=== PATIENT | female | born 1960 | race Caucasian/White ===

== ENCOUNTER 2016-06-24 15:30 | Inpatient (IN) | payer BC, OTHER ==
[~2016-06-24] VITALS: Ht 160 cm; Wt 48.0 kg
[2016-06-24 15:32] VITALS: BP 87/50; PULSE 120; RESP 20; TEMP 97.6; O2SAT 96
--- NOTE | 2016-06-24 15:39 | PD ---
Physical Exam Date Seen by Provider: June 24, 2016 Time Seen by Provider: 15:35 Narrative 56 YOWF C/O CONSTIPATION. LAST BM 1.[address] WILKINS. H/O BREAST CA WITH METS. NO CHEMO AND RADIATION. NEEDS CT TO R/O OBSTRUCTION. NO F/C. POS NAUSEA AND SL VOMITING. NO BILE. PAIN 9/10 WITH ABD CRAMPING. VS NOTED wating for bed asignment Data Data Last Documented VS Vital Signs Date Time Temp Pulse Resp B/P Pulse Ox O2 Delivery O2 Flow Rate FiO2 06/24/16 15:32 97.6 120 20 87/50 96 Room Air [facility] Medical Record Reviewed: No Supervised Visit with LIVAN: Minh Hale June 24, 2016 15:39
[2016-06-24] MEDS ORDERED: SODIUM CHLOR 0.9% 1000 ML INJ 1,000 ML IV SCH ×2 (15:45→18:07)
[2016-06-24] MEDS ORDERED: MORPHINE SULFATE 4 MG/ML INJ IV PUSH ONE (15:45)
[2016-06-24] MEDS ORDERED: ONDANSETRON HCL 4 MG/2 ML VIAL IVP ONE (15:45)
[2016-06-24] MEDS ORDERED: VITA100064 PO (16:21)
[2016-06-24] MEDS ORDERED: DEXA4TAB PO (16:21)
[2016-06-24] MEDS ORDERED: ASPI81CH CHEW (16:21)
[2016-06-24 17:04] VITALS: O2SAT 97
--- NOTE | 2016-06-24 17:23 | PD ---
HPI Chief Complaint: GI Complaint Time Seen by Provider: 17:19 Travel History International Travel<30 days: No Contact w/Intl Traveler<30days: No Traveled to known affect area: No History of Present Illness HPI 56-year-old female that presents to the ED for evaluation of constipation. Patient reports that for the past 10 days she has not had a bowel movement. She 's been trying multiple [id number] remedies with no relief. She 7 use enemas with minimal relief. Patient denies any nausea but has vomited a couple times. She has a history of breast cancer to has metastasized to the colon, abdomen as well as the lungs. Patient has not had any radiation. Patient apparently was supposed to have chemotherapy yesterday which she was found to be hypotensive so they gave her fluids instead. She did not get any of her chemotherapy radiation yesterday. Patient came here today because she contacted her doctor who recommended that she comes here to make sure have a blockage. Per patient she had a colonoscopy done in [place] by Dr. Collins that showed the colon masses. She states that she is usually regular although since having the diagnosis of metastasis she's been a little more regular but she is usually able to take care of them by herself. She states that whenever she has the urge to go she has severe cramping pain in the pain is progressively gotten worse. She did vomit twice today. No blood. Denies any urinary issues. No allergies to medication. PFSH Past Medical History Chemotherapy: Yes Coronary Artery Disease: Yes (bilateral breast) Social History Alcohol Use: No Tobacco Use: No Substance Use: No Allergies-Medications (Allergen,Severity, Reaction): Coded Allergies: No Known Allergies (Unverified , 06/24/16) Reported Meds & Prescriptions Reported Meds & Active Scripts Active Reported Aspirin 81 Mg Chew 81 Mg CHEW DAILY Dexamethasone 4 Mg Tab 4 Mg PO DAILY Vitamin D (Cholecalciferol) 1,000 Unit Tab 1,000 Units PO DAILY Review of Systems Except as stated in HPI: all other systems reviewed are Neg Physical Exam Narrative GENERAL: SKIN: Warm and dry. HEAD: Atraumatic. Normocephalic. EYES: Pupils equal and round 4 mm reactive to light and accommodation. No scleral icterus. No injection or drainage. ENT: No nasal bleeding or discharge. Mucous membranes pink and moist. Tongue is midline. No uvula deviation. NECK: Trachea midline. No JVD. CARDIOVASCULAR: Regular rate and rhythm. No murmurs, S3, S4. RESPIRATORY: No accessory muscle use. Clear to auscultation. Breath sounds equal bilaterally. GASTROINTESTINAL: Abdomen soft, tender to touch especially in the lower abdomen. , nondistended. Hepatic and splenic margins not palpable. MUSCULOSKELETAL: Extremities without clubbing, cyanosis, or edema. No obvious deformities. Full range of motion of the upper and lower extremities bilaterally. 2+ pulses bilaterally. NEUROLOGICAL: Awake and alert. No obvious cranial nerve deficits. Motor grossly within normal limits. Five out of 5 muscle strength in the arms and legs. Normal speech. PSYCHIATRIC: Appropriate mood and affect; insight and judgment normal. Data Data Last Documented VS Vital Signs Date Time Temp Pulse Resp B/P Pulse Ox O2 Delivery O2 Flow Rate FiO2 06/24/16 18:18 95 16 103/59 99 Room Air 06/24/16 15:32 97.6 Orders Complete Blood Count With Diff (06/24/16 15:45) Comprehensive Metabolic Panel (06/24/16 15:45) Lipase (06/24/16 15:45) Lactic Acid (06/24/16 15:45) Prothrombin Time / Inr (Pt) (06/24/16 15:45) Act Partial Throm Time (Ptt) (06/24/16 15:45) Urinalysis - C+S If Indicated (06/24/16 15:45) Ct Abd/Pel W Iv Contrast(Rout) (06/24/16 15:45) Iv Access Insert/Monitor (06/24/16 15:45) Ecg Monitoring (06/24/16 15:45) Oximetry (06/24/16 15:45) Morphine Inj (Morphine Inj) (06/24/16 15:45) Ondansetron Inj (Zofran Inj) (06/24/16 15:45) Sodium Chlor 0.9% 1000 Ml Inj (Ns 1000 M (06/24/16 15:45) Sodium Chlor 0.9% 1000 Ml Inj (Ns 1000 M (06/24/16 18:07) Insert Ng Tube (06/24/16 20:20) Admit Order (Ed Use Only) (06/24/16 20:46) Labs Laboratory Tests Test 06/24/16 06/24/16 17:00 17:25 White Blood Count 3.1 TH/MM3 Red Blood Count 3.93 MIL/MM3 Hemoglobin 11.3 GM/DL Hematocrit 33.5 % Mean Corpuscular Volume 85.3 FL Mean Corpuscular Hemoglobin 28.7 PG Mean Corpuscular Hemoglobin 33.7 % Concent Red Cell Distribution Width 21.9 % Platelet Count 253 TH/MM3 Mean Platelet Volume 7.2 FL Neutrophils (%) (Auto) 72.2 % Lymphocytes (%) (Auto) 15.5 % Monocytes (%) (Auto) 11.1 % Eosinophils (%) (Auto) 0.7 % Basophils (%) (Auto) 0.5 % Neutrophils # (Auto) 2.2 TH/MM3 Lymphocytes # (Auto) 0.5 TH/MM3 Monocytes # (Auto) 0.3 TH/MM3 Eosinophils # (Auto) 0.0 TH/MM3 Basophils # (Auto) 0.0 TH/MM3 CBC Comment AUTO DIFF Differential Total Cells 100 Counted Neutrophils % (Manual) 43 % Band Neutrophils % 32 % Lymphocytes % 14 % Monocytes % 6 % Eosinophils % 2 % Basophils % 1 % Neutrophils # (Manual) 2.4 TH/MM3 Metamyelocytes 2 % Differential Comment FINAL DIFF MANUAL Platelet Estimate NORMAL Platelet Morphology Comment NORMAL Red Cell Morphology Comment NORMAL Prothrombin Time 11.3 SEC Prothromb Time International 1.0 RATIO Ratio Activated Partial 33.5 SEC Thromboplast Time Sodium Level 132 MEQ/L Potassium Level 3.6 MEQ/L Chloride Level 93 MEQ/L Carbon Dioxide Level 29.2 MEQ/L Anion Gap 10 MEQ/L Blood Urea Nitrogen 12 MG/DL Creatinine 0.33 MG/DL Estimat Glomerular Filtration 206 ML/MIN Rate Random Glucose 75 MG/DL Lactic Acid Level 1.2 mmol/L Calcium Level 13.0 MG/DL Protein Corrected Calcium MG/DL Total Bilirubin 1.1 MG/DL Aspartate Amino Transf 33 U/L (AST/SGOT) Alanine Aminotransferase 22 U/L (ALT/SGPT) Alkaline Phosphatase 158 U/L Total Protein 6.2 GM/DL Albumin 2.7 GM/DL Lipase 100 U/L Urine Color YELLOW Urine Turbidity HAZY Urine pH 5.5 Urine Specific [place] 1.015 Urine Protein TRACE mg/dL Urine Glucose (UA) NEG mg/dL Urine Ketones 40 mg/dL Urine Occult Blood NEG Urine Nitrite NEG Urine Bilirubin NEG Urine Urobilinogen LESS THAN 2.0 MG/DL Urine Leukocyte Esterase NEG Urine WBC 1 /hpf Urine Squamous Epithelial <1 /hpf Cells Urine Hyaline Casts 9 /lpf Urine Granular Casts 3 /lpf Urine Mucus FEW /lpf Microscopic Urinalysis Comment CULT NOT INDICATED MDM Medical Decision Making Medical Screen Exam Complete: Yes Emergency Medical Condition: Yes Medical Record Reviewed: Yes Interpretation(s) CBC & BMP Diagram 06/24/16 17:00 LFTS and lipase WNL Coags WNL UA negative Last Impressions Abdomen/Pelvis CT 06/24/16 1545 Signed Impressions: Service Date/Time: Friday, June 24, 2016 19:30 - CONCLUSION: Widespread metastatic disease. Likely distal bowel obstruction and right ureteral obstruction. See above for complete details Alberto Mckinley MD Differential Diagnosis Bowel obstruction versus constipation versus diverticulitis versus acute abdomen versus metastatic disease versus dehydration versus hypotension Narrative Course 56-year-old female that presents to the ED for evaluation of possible bowel obstruction. Patient was properly examined and was found to have signs and symptoms concerning for possible bowel obstruction. Patient does have a history of metastatic cancer with metastases to colon itself. I do recommend imaging and labs. Patient is in agreement with this plan. Patient was given IV fluids as well as pain medication here. Labs and imaging showed distal colon obstruction as well as ureter on the right side obstruction. Patient has severe metastatic disease. Case was discussed in my attending who recommends is basically colorectal surgeon as well as urologist. Case was discussed with Dr. Ovalle who agrees to consult on the patient for possible surgical management as well as my attending spoke with Dr Hawkins who will also consult on the patient. Findings and requirement for admission were discussed with the family and patient were in agreement with admission. CHRIS was paged. Dr Meehan agrees to admission. Diagnosis Primary Impression: Colonic obstruction Additional Impressions: Urethral obstruction Metastatic disease Admitting Information Admitting Physician Requests: Admit Caden Jones June 24, 2016 17:23
[2016-06-24 17:40] LABS: APTT (PATIENT) 33.5 SEC (24.3-30.1); PROTHROMBIN TIME - PATIENT 11.3 SEC (9.8-11.6)
[2016-06-24 17:41] LABS: AUTOMATED NEUTROPHIL # 2.2 TH/MM3 (1.8-7.7); BASOPHIL % 0.5 % (0.0-2.0); EOSINOPHIL % 0.7 % (0.0-4.0); HEMATOCRIT 33.5 % (35.0-46.0); LYMPH % 15.5 % (9.0-44.0); LYMPHOCYTE # 0.5 TH/MM3 (1.0-4.8); MEAN CELL VOLUME 85.3 FL (80.0-100.0); MEAN CORPUSCULAR HEMOGLOBIN 28.7 PG (27.0-34.0); MEAN CORPUSCULAR HGB CONC 33.7 % (32.0-36.0); MONO % 11.1 % (0.0-8.0); NEUT % 72.2 % (16.0-70.0); PLATELET COUNT 253 TH/MM3 (150-450); RED BLOOD COUNT 3.93 MIL/MM3 (4.00-5.30); RED CELL DISTRIBUTION WIDTH 21.9 % (11.6-17.2); WHITE BLOOD COUNT 3.1 TH/MM3 (4.0-11.0)
[2016-06-24 17:49] LABS: HEMO FLAGS AUTO DIFF
[2016-06-24 18:08] LABS: BLOOD, URINE NEG (NEG); COMMENT (UR) CULT NOT INDICATED; CULTURE IF INDICATED CULT NOT INDICATED; GLUCOSE,URINE NEG (NEG); GRANULAR CAST, URINE 3 /lpf; HYALINE CAST, URINE 9 /lpf (RARE); KETONE, URINE 40 mg/dL (NEG); MUCUS URINE FEW /lpf (OCC); NITRITE,URINE NEG (NEG); PH, URINE 5.5 (5.0-8.5); SQUAMOUS EPITHELIAL CELL URINE <1 /hpf (0-5); URINE COLOR YELLOW (YELLW/STRAW)
[2016-06-24 18:14] LABS: BICARBONATE 29.2 MEQ/L (21.0-32.0); POTASSIUM 3.6 MEQ/L (3.5-5.1); TOTAL BILIRUBIN ADULT 1.1 MG/DL (0.2-1.0)
[2016-06-24 18:18] VITALS: BP 103/59; PULSE 95; RESP 16; O2SAT 99
[2016-06-24 18:23] LABS: BANDS 32 % (0-6); BASOPHILS 1 % (0-2); EOSINOPHILS 2 % (0-4); METAMYELOCYTES 2 % (0-1); NEUTROPHIL # MANUAL DIFF 2.4 TH/MM3 (1.8-7.7); PLATELET ESTIMATE SMEAR NORMAL (NORMAL); PLATELET MORPHOLOGY NORMAL (NORMAL); POLYS (SEG NEUTROPHILS) 43 % (16-70); SCAN/DIFF FINAL DIFF MANUAL; WBC DIFF SAMPLE 100
[2016-06-24] MEDS ORDERED: IOHEXOL 350 MG/ML 10 ML VIAL (for RAD DIAG) IV ONE (19:30)
--- NOTE | 2016-06-24 20:05 | RADRPT ---
EXAM DATE/TIME: 06/24/2016 19:30 [facility] COMPARISON: CT SIMULATION, June 19, 2015, 10:25. CT SIMULATION, May 19, 2016, 13:56. INDICATIONS : Abdominal pain, hx breast ca with metastatic disease and chemo, no bowel movement for 1.5 weeks, naus ea and vomiting. IV CONTRAST: 95 cc Omnipaque 350 (iohexol) IV ORAL CONTRAST: No oral contrast ingested. RADIATION DOSE: 4.5 CTDIvol (mGy) MEDICAL HISTORY : Metastatic, breast. SURGICAL HISTORY : None. ENCOUNTER: Initial ACUITY: 2 weeks PAIN SCALE: 4/10 LOCATION: abdomen diffuse TECHNIQUE: Volumetric scanning of the abdomen and pelvis was performed. Using automated exposure control and ad justment of the mA and/or kV according to patient size, radiation dose was kept as low as reasonably achievable to obtain optimal diagnostic quality images. FINDINGS: LOWER LUNGS: Right pleural effusion and atelectasis in the posterior lung bases. At least one nodular density in t he anterior left lung base LIVER: Multiple low density lesions consistent with metastatic disease, largest several measuring just over 3 cm. No evidence of biliary ductal dilatation. SPLEEN: Normal size without lesion. Small nodular masses in the splenic hilum PANCREAS: Within normal limits. KIDNEYS: Mild right hydronephrosis and hydroureter. Heterogeneous mass involving the anterior apex of the righ t kidney and adjacent lobular adrenal mass/masses. It is unclear from the appearance of this is a sin gle mass process or separate mass is arising in both organs. The contralateral left kidney is benign with a couple of tiny cysts present, however there are do appear to be extrarenal masses near the low er pole both within and external to Gerota's fascia. ADRENAL GLANDS: See above VASCULAR: There is no aortic aneurysm. BOWEL/MESENTERY: Moderately dilated colon and multiple dilated small bowel loops primarily in the pelvis. There appear s to be some wall thickening or pericolic inflammation in addition to multiple nodular masses adjacen t to the descending colon with nodular masses in the left paracolic gutter. In the deep central pelvi s, there appears to be a transition point with caliber change involving the distal sigmoid without di screte mass in this region. ABDOMINAL WALL: Within normal limits. RETROPERITONEUM: Nodular masses associated with the right adrenal, the upper abdominal para-aortic region, the lower a spect of the left perinephric . Enlarged right iliac chain lymph node at the level of the inferior as pect of the SI joint. BLADDER: No wall thickening or mass. REPRODUCTIVE: Within normal limits. INGUINAL: There is no lymphadenopathy or hernia. MUSCULOSKELETAL: Within normal limits for patient age. CONCLUSION: Widespread metastatic disease. Likely distal bowel obstruction and right ureteral obstruction. See ab ove for complete details Alberto Mckinley MD on June 24, 2016 at 19:47 Board Certified Radiologist. This report was verified electronically.
[2016-06-24] MEDS: SODIUM CHLOR 0.9% 1000 ML INJ 1,000 ML IV SCH ×2 (20:53→21:37)
[2016-06-24] MEDS ORDERED: BISACODYL 10 MG SUPP RECTAL PRN (21:00)
[2016-06-24] MEDS ORDERED: SODIUM CHLORIDE 0.9% FLUSH 10 ML FLUSH IV FLUSH PRN (21:00)
[2016-06-24] MEDS ORDERED: MORPHINE SULFATE 4 MG/ML INJ IV PRN (21:00)
[2016-06-24] MEDS: SODIUM CHLORIDE 0.9% FLUSH 10 ML FLUSH IV FLUSH SCH (21:00)
[2016-06-24] MEDS ORDERED: ACETAMINOPHEN 1000 MG/100 ML VIAL IV PRN (21:00)
--- NOTE | 2016-06-24 21:02 | HHI.HP ---
[facility] Eddie [facility]if M[facility]. Admission Diagnosis colonic obstruction, urethral obstruction, metastatic disease Diagnoses: (1) Metastatic breast cancer Diagnosis: Principal (2) Urethral obstruction Diagnosis: Principal (3) Bowel obstruction Diagnosis: Principal (4) Hypercalcemia Diagnosis: Principal (5) Hypotension Diagnosis: Principal (6) Bandemia Diagnosis: Principal Travel History International Travel<30 Days: No Contact w/Intl Traveler <30 Da: No Traveled to Known Affected Are: No History of Present Illness This a 56-year-old female with a PMH of Metastatic Breast CA to Brain, Liver and Colon who presented to the ER with complaints of abdominal pain and constipation x10 days. Denies nausea, vomiting or diarrhea. States she's tried over the counter medications w/ no relief. Following w/ Dr. Mckeon as outpatient, s/p Brain Radiation w/ plans to undergo Chemo yesterday however chemo on hold for episode of hypotension. Today, w/ increasing abdominal pain and referred to ER for evaluation of possible obstruction. On arrival, BP 87/50 , HR 120, O2 sat 96% on RA, Afebrile. S/p IVF, currently BP 103/52, HR 80. WBC 3.1, bandemia 32. Ca 13.0. U/a negative. CT Abd/Pelvis w/ widespread metastatic disease, likely distal bowel obstruction and right ureteral obstruction. Dr. Ovalle w/ CRS and Dr. Hawkins w/ Urology, will evaluate in am. S/p NGT in ER. Review of Systems Except as stated in HPI: all other systems reviewed are Neg ROS: 14 point review of systems otherwise negative. Past Family Social History Past Medical History PMH: Metastatic Breast CA to Brain, Liver and Colon Past Surgical History PAST SURGICAL HISTORY: None Allergies: Coded Allergies: No Known Allergies (Unverified , 06/24/16) Family History PAST FAMILY HISTORY: Reviewed. No h/o DM or CAD Social History PAST SOCIAL HISTORY: Negative for alcohol, tobacco or drugs. Physical Exam Vital Signs Vital Signs Date Time Temp Pulse Resp B/P Pulse Ox O2 Delivery O2 Flow Rate FiO2 06/24/16 18:18 95 16 103/59 99 Room Air 06/24/16 17:04 97 Room Air 06/24/16 15:32 97.6 120 20 87/50 96 Room Air Physical Exam PE: GENERAL: Middle-aged female in no acute distress. HEENT: PERRLA, EOMI. No scleral icterus or conjunctival pallor. No lid lag or facial droop. CARDIOVASCULAR: Regular rate and rhythm. No obvious murmurs to auscultation. No chest tenderness to palpation. RESPIRATORY: No obvious rhonchi or wheezing. Clear to auscultation. Breath sounds equal bilaterally. GASTROINTESTINAL: Abdomen soft, generalized tenderness to palpation, nondistended. BS normal. MUSCULOSKELETAL: Extremities without clubbing, cyanosis, or edema. No obvious deformities. NEUROLOGICAL: Awake, alert and oriented x4. No focal neurologic deficits. Moving both upper and lower extremities spontaneously. Laboratory Laboratory Tests Test 06/24/16 06/24/16 17:00 17:25 White Blood Count 3.1 Red Blood Count 3.93 Hemoglobin 11.3 Hematocrit 33.5 Mean Corpuscular Volume 85.3 Mean Corpuscular Hemoglobin 28.7 Mean Corpuscular Hemoglobin 33.7 Concent Red Cell Distribution Width 21.9 Platelet Count 253 Mean Platelet Volume 7.2 Neutrophils (%) (Auto) 72.2 Lymphocytes (%) (Auto) 15.5 Monocytes (%) (Auto) 11.1 Eosinophils (%) (Auto) 0.7 Basophils (%) (Auto) 0.5 Neutrophils # (Auto) 2.2 Lymphocytes # (Auto) 0.5 Monocytes # (Auto) 0.3 Eosinophils # (Auto) 0.0 Basophils # (Auto) 0.0 CBC Comment AUTO DIFF Differential Total Cells 100 Counted Neutrophils % (Manual) 43 Band Neutrophils % 32 Lymphocytes % 14 Monocytes % 6 Eosinophils % 2 Basophils % 1 Neutrophils # (Manual) 2.4 Metamyelocytes 2 Differential Comment FINAL DIFF MANUAL Platelet Estimate NORMAL Platelet Morphology Comment NORMAL Red Cell Morphology Comment NORMAL Prothrombin Time 11.3 Prothromb Time International 1.0 Ratio Activated Partial 33.5 Thromboplast Time Sodium Level 132 Potassium Level 3.6 Chloride Level 93 Carbon Dioxide Level 29.2 Anion Gap 10 Blood Urea Nitrogen 12 Creatinine 0.33 Estimat Glomerular Filtration 206 Rate Random Glucose 75 Lactic Acid Level 1.2 Calcium Level 13.0 Protein Corrected Calcium Total Bilirubin 1.1 Aspartate Amino Transf 33 (AST/SGOT) Alanine Aminotransferase 22 (ALT/SGPT) Alkaline Phosphatase 158 Total Protein 6.2 Albumin 2.7 Lipase 100 Urine Color YELLOW Urine Turbidity HAZY Urine pH 5.5 Urine Specific [place] 1.015 Urine Protein TRACE Urine Glucose (UA) NEG Urine Ketones 40 Urine Occult Blood NEG Urine Nitrite NEG Urine Bilirubin NEG Urine Urobilinogen LESS THAN 2.0 Urine Leukocyte Esterase NEG Urine WBC 1 Urine Squamous Epithelial <1 Cells Urine Hyaline Casts 9 Urine Granular Casts 3 Urine Mucus FEW Microscopic Urinalysis Comment CULT NOT INDICATED Result Diagram: 06/24/16169906/24/161699 Assessment and Plan Problem List: (1) Metastatic breast cancer ICD Code: C50.919 Status: Acute (2) Urethral obstruction ICD Code: N36.8 Status: Acute (3) Bowel obstruction ICD Code: K56.60 Status: Acute (4) Hypercalcemia ICD Code: E83.52 Status: Acute (5) Hypotension ICD Code: I95.9 Status: Acute (6) Bandemia ICD Code: D72.825 Status: Acute Assessment and Plan A/P: 1. Metastatic Breast CA: to [employer], Liver and Colon, s/p Radiation, plan to initiate Chemo however has been hypotensive requiring IVF, Chemo on hold. Follows w/ Dr. Mckeon as outpatient, consult placed by ER physician. Currently on Decadron taper for [employer] mets, will switch to IV Decadron in light of bowel obstruction. 2. Bowel Obstruction: Constipation, no BM x10 days. CT Abd/Pelvis w/ widespread metastatic disease, likely distal bowel obstruction and right ureteral obstruction, images reviewed by me. S/p NGT placement in ER. Keep NPO , IVF, transition to IV medications. Dr. Ovalle consulted by ER physician, will evaluate in am. 3. Ureteral Obstruction: As above, CT w/ right ureteral obstruction, images reviewed. Dr. Hawkins consulted by ER physician. Monitor I/O. 4. Hypercalcemia: Ca 13.0, likely secondary to significant dehydration. IVF, repeat labs in am. 5. Hypotension: Recurrent. BP 87/50, HR 120 on arrival, s/p IVF w/ repeat BP currently 103/52, HR 80. Monitor closely. IVF for hydration. 6. Bandemia: WBC 3.1, Bands 32. U/a negative. Check Blood Cultures, start empiric treatment w/ Cipro/Flagyl for intra-abdominal infection. Repeat labs in am. 7. DVT Prophylaxis: SCD/Teds. 8. Social work for d/c planning as needed. 9. Case discussed w/ ER physician at length. Physician Certification 2 Midnight Certification Type: Admission for Inpatient Services Order for Inpatient Services The services are ordered in accordance with Medicare regulations or non- Medicare payer requirements, as applicable. In the case of services not specified as inpatient-only, they are appropriately provided as inpatient services in accordance with the 2-midnight benchmark. Estimated LOS (days): 2 days is the estimated time the patient will need to remain in the hospital, assuming treatment plan goals are met and no additional complications. Post-Hospital Plan: Not yet determined Charlene Meehan MD June 24, 2016 21:02
[2016-06-24 21:52] VITALS: BP 103/52; PULSE 80; RESP 16; TEMP 98.3; O2SAT 96
[2016-06-25] VITALS (7 sets, daily range): BP systolic 85–105; BP diastolic 46–56; PULSE 105–115; RESP 15–18; TEMP 96–98.7; O2SAT 94–98
[2016-06-25] MEDS: metroNIDAZOLE 500 MG INJ 100 ML IV SCH ×3 (00:09→15:45)
[2016-06-25] MEDS: CIPROFLOXACIN 400 MG PREMIX 200 ML IV SCH ×4 (00:09→23:12)
[2016-06-25] MEDS: MORPHINE SULFATE 4 MG/ML INJ IV PRN (00:11)
--- NOTE | 2016-06-25 00:24 | RADRPT ---
EXAM DATE/TIME: 06/24/2016 23:44 [facility] COMPARISON: CT ABDOMEN & PELVIS W CONTRAST, June 24, 2016, 19:30. INDICATIONS : NG tube placement. MEDICAL HISTORY : Metastatic, breast. SURGICAL HISTORY : None. ENCOUNTER: Initial ACUITY: 1 day PAIN SCORE: 0/10 LOCATION: upper quadrant abdomen. FINDINGS: There appears to be an NG tube in the mid to distal esophagus. The tip does not appear to be in the s tomach. Recommend advancing the NG tube and other 10 cm. There is hydronephrosis of the right upper c ollecting system. There appears to be obstruction of the mid right ureter. No hydronephrosis on the l eft side. There is some nonspecific air filled loops of small marginal bowel. Lung bases are grossly clear. There surgical clips in the abdomen. CONCLUSION: 1. NG tube appears to be in the mid to distal esophagus. Recommend advancing the NG tube approximatel y 10 cm. 2. Hydronephrosis of the right collecting system with what appears to be obstruction at the mid right ureter. 3. Nonspecific air-filled loops of small and large bowel throughout the abdomen. Kalia Rasmussen MD on June 25, 2016 at 0:16 Board Certified Radiologist. This report was verified electronically.
[2016-06-25] MEDS ORDERED: SODIUM CHLORID 0.9% 500 ML INJ 500 ML IV ONE (05:00)
[2016-06-25 08:34] LABS: ALKALINE PHOSPHATASE 155 U/L (45-117); ALT (GPT) 32 U/L (10-53); ANION GAP 7 MEQ/L (5-15); AST (GOT) 64 U/L (15-37); BICARBONATE 28.2 MEQ/L (21.0-32.0); BLOOD UREA NITROGEN 3 MG/DL (7-18); CHLORIDE 105 MEQ/L (98-107); GLOMERULAR FILTRATION RATE 81 ML/MIN (>89); POTASSIUM 3.5 MEQ/L (3.5-5.1); SODIUM (NA) 140 MEQ/L (136-145)
[2016-06-25] MEDS: DEXAMETHASONE SOD PHOS 4 MG/ML VIAL IV PUSH SCH (09:34)
[2016-06-25] MEDS: SODIUM CHLORIDE 0.9% FLUSH 10 ML FLUSH IV FLUSH SCH ×2 (09:36→19:29)
[2016-06-25 10:40] LABS: AUTOMATED NEUTROPHIL # 4.7 TH/MM3 (1.8-7.7); BASOPHIL % 0.3 % (0.0-2.0); EOSINOPHIL % 0.3 % (0.0-4.0); HEMATOCRIT 27.9 % (35.0-46.0); LYMPH % 6.7 % (9.0-44.0); LYMPHOCYTE # 0.4 TH/MM3 (1.0-4.8); MEAN CELL VOLUME 85.7 FL (80.0-100.0); MEAN CORPUSCULAR HEMOGLOBIN 28.7 PG (27.0-34.0); MEAN CORPUSCULAR HGB CONC 33.5 % (32.0-36.0); MONO % 4.8 % (0.0-8.0); NEUT % 87.9 % (16.0-70.0); PLATELET COUNT 147 TH/MM3 (150-450); RED BLOOD COUNT 3.25 MIL/MM3 (4.00-5.30); RED CELL DISTRIBUTION WIDTH 21.9 % (11.6-17.2); WHITE BLOOD COUNT 5.3 TH/MM3 (4.0-11.0)
[2016-06-25 10:42] LABS: HEMO FLAGS AUTO DIFF
[2016-06-25 11:17] LABS: BANDS 36 % (0-6); METAMYELOCYTES 11 % (0-1); MYELOCYTES 3 % (0-0); POLYS (SEG NEUTROPHILS) 26 % (16-70); WBC DIFF SAMPLE 100
[2016-06-25 11:21] LABS: SCAN/DIFF FINAL DIFF MANUAL
--- NOTE | 2016-06-25 11:51 | HHI.PR ---
Subjective Remarks Pt currently having 6/10 pain, no nausea or vomiting but tells me that her abdomen is "gargling". She spoke w Dr. Ovalle and she is going to the OR today if there is availability today Objective Vitals Vital Signs Date Time Temp Pulse Resp B/P Pulse Ox O2 Delivery O2 Flow Rate FiO2 06/25/16 08:00 97.1 107 15 89/46 96 06/25/16 05:40 90/50 06/25/16 04:45 97.0 105 16 85/46 96 06/25/16 00:40 98.7 115 16 90/55 94 06/24/16 21:52 98.3 80 16 103/52 96 Room Air 06/24/16 18:18 95 16 103/59 99 Room Air 06/24/16 17:04 97 Room Air 06/24/16 15:32 97.6 120 20 87/50 96 Room Air I/O 06/24/16 06/24/16 06/24/16 06/25/16 06/25/16 06/25/16 07:00 15:00 23:00 07:00 15:00 23:00 Intake Total 1640 ml Output Total 200 ml Balance 1440 ml Intake Oral 200 ml IV Total 1440 ml Output Gastric Drainage Total 200 ml # Voids 1 # Bowel Movements 0 Result Diagram: 06/25/16 1000 06/25/16 0700 Imaging Last Impressions Abdomen/Pelvis CT 06/24/16 1545 Signed Impressions: Service Date/Time: Friday, June 24, 2016 19:30 - CONCLUSION: Widespread metastatic disease. Likely distal bowel obstruction and right ureteral obstruction. See above for complete details Alberto Mckinley MD Abdomen X-Ray 06/24/16 0000 Signed Impressions: Service Date/Time: Friday, June 24, 2016 23:44 - CONCLUSION: 1. NG tube appears to be in the mid to distal esophagus. Recommend advancing the NG tube approximately 10 cm. 2. Hydronephrosis of the right collecting system with what appears to be obstruction at the mid right ureter. 3. Nonspecific air-filled loops of small and large bowel throughout the abdomen. Kalia Rasmussen MD Objective Remarks GENERAL: Middle-aged female in no acute distress. CARDIOVASCULAR: Regular rate and rhythm. No obvious murmurs to auscultation. RESPIRATORY: No obvious rhonchi or wheezing. Clear to auscultation. Breath sounds equal bilaterally. NG tube in place GASTROINTESTINAL: Abdomen soft, generalized tenderness to palpation, nondistended. hyperactive bowel sounds noted, no guarding or rebound MUSCULOSKELETAL: Extremities without edema. No obvious deformities. NEUROLOGICAL: Awake, alert and oriented x4. No focal neurologic deficits. Moving both upper and lower extremities spontaneously. A/P Problem List: (1) Metastatic breast cancer ICD Code: C50.919 Status: Acute (2) Urethral obstruction ICD Code: N36.8 Status: Acute (3) Bowel obstruction ICD Code: K56.60 Status: Acute (4) Hypercalcemia ICD Code: E83.52 Status: Acute (5) Hypotension ICD Code: I95.9 Status: Acute (6) Bandemia ICD Code: D72.825 Status: Acute Assessment and Plan 1. 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 Follows w / Dr. Mckeon as outpatient, and he has been consulted. 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 2. Bowel Obstruction: Constipation, no BM x10 days. CT Abd/Pelvis w/ widespread metastatic disease, likely distal bowel obstruction and right ureteral obstruction. S/p NGT placement in ER. continue NPO, IVF, meds transitioned to IV medications for now. Dr. Ovalle evaluated the patient and exploratory laparomy/colostomy has been scheduled for today 3. Ureteral Obstruction: As above, CT w/ right ureteral obstruction. Dr. Hawkins consulted by ER physician. Monitor I/O. 4. Hypercalcemia: Ca 13.0, likely secondary to significant dehydration. today repeat was 7.8, continue IVF, repeat labs in am. 5. Hypotension: Recurrent. BP 87/50, HR 120 on arrival, s/p IVF w/ repeat BP currently 103/52, HR 80. Received a bolus IV NS 500ml x 1. will increase NS @ 125ml/hr. Monitor closely. 6. Bandemia: WBC 3.1, Bands 32. on admission. repeat this morning WBC 5.3 w 36 bands. U/a negative. Blood Cultures pending, on Cipro/Flagyl for possible intra-abdominal infection. Repeat labs in am. 7. DVT Prophylaxis: SCD/Teds. Discharge Planning Pt going to the OR today Latricia Hall MD June 25, 2016 11:51
[2016-06-25] MEDS ORDERED: PHENYLEPH/NS 1000 MCG/10 ML SYR IV ONE (12:00)
[2016-06-25] MEDS ORDERED: LACTATED RINGER'S 1000 ML INJ 1,000 ML IV ONE (12:00)
[2016-06-25] MEDS ORDERED: NEOSTIGMINE 3 MG/3 ML SYR IV ONE (12:00)
[2016-06-25] MEDS ORDERED: PROPOFOL 200 MG/20 ML AMP IV ONE (12:00)
[2016-06-25] MEDS ORDERED: ONDANSETRON HCL 4 MG/2 ML VIAL IV PUSH ONE (12:00)
[2016-06-25] MEDS ORDERED: SUGAMMADEX SODIUM 200 MG/2 ML VIAL IV PUSH ONE ×2 (13:18)
[2016-06-25] MEDS ORDERED: DO NOT ADM ANY ANTICOAGULANT DRUGS PRN (13:28)
[2016-06-25] MEDS ORDERED: fentaNYL CITRATE 250 MCG/5 ML AMP ONE (13:41)
[2016-06-25] MEDS ORDERED: *morphine SULFATE 8 MG/ML PERIprocedure ONLY ONE ×2 (13:52→14:15)
[2016-06-25] MEDS ORDERED: MORPHINE SULFATE 30 MG/30 ML PCA ONE (14:16)
[2016-06-25] MEDS ORDERED: *HYDROmorphone PF 1 MG VIAL PERIprocedural Use ONLY ONE (14:28)
[2016-06-25] MEDS: DEXT 5%-NACL 0.9% 1000 ML INJ 1,000 ML IV SCH ×5 (14:30→23:30)
[2016-06-25] MEDS ORDERED: NALOXONE HCL 0.4 MG/ML AMP IV PRN (15:00)
--- NOTE | 2016-06-25 15:11 | HHI.PR ---
Subjective Patient symptoms today Patient not in room for evaluation Imaging studies reviewed. Mild hydronephrosis noted. Normal Cr. Unlikely any significant obstruction of the right collecting system. Based on the imaging studies, no immediate need for decompression with ureteral stents. However if Dr. Ovalle requires stent placement for any procedure please contact Urology prior. Will return at a later date to evaluate patient Objective Vital Signs Vital Signs Date Time Temp Pulse Resp B/P Pulse Ox O2 Delivery O2 Flow Rate FiO2 06/25/16 08:00 97.1 107 15 89/46 96 06/25/16 05:40 90/50 06/25/16 04:45 97.0 105 16 85/46 96 06/25/16 00:40 98.7 115 16 90/55 94 06/24/16 21:52 98.3 80 16 103/52 96 Room Air 06/24/16 18:18 95 16 103/59 99 Room Air 06/24/16 17:04 97 Room Air 06/24/16 15:32 97.6 120 20 87/50 96 Room Air Result Diagram: 06/25/16 1000 06/25/16 0700 Imaging Last 24 hours Impressions Abdomen/Pelvis CT 06/24/16 1545 Signed Impressions: Service Date/Time: Friday, June 24, 2016 19:30 - CONCLUSION: Widespread metastatic disease. Likely distal bowel obstruction and right ureteral obstruction. See above for complete details Alberto Mckinley MD Medications and IVs Current Medications Medications (Trade) Dose Ordered Sig/Nico Route Start Time Stop Time Status Last Admin (NS 1000 ml Inj) 1,000 ml @ 125 mls/hr Q8H IV 06/24/16 20:53 06/24/16 21:37 (NS Flush) 2 ml UNSCH PRN IV FLUSH 06/24/16 21:00 (NS Flush) 2 ml BID IV FLUSH 06/24/16 21:00 06/25/16 09:36 (Zofran Inj) 4 mg Q6H PRN IVP 06/24/16 21:00 (Morphine Inj) 2 mg Q3H PRN IV 06/24/16 21:00 06/24/16 21:37 (Morphine Inj) 4 mg Q3H PRN IV 06/24/16 21:00 06/25/16 00:11 Dexamethasone Sodium Phosphate 4 mg 4 mg DAILY IV PUSH 06/25/16 09:00 06/25/16 09:34 Ciprofloxacin/ Dextrose 200 ml @ 200 mls/hr Q12H IV 06/24/16 23:00 06/25/16 12:23 (Flagyl 500 Mg Inj) 100 ml @ 100 mls/hr Q8H IV 06/25/16 00:00 06/25/16 09:35 (Reglan Inj) 10 mg Q6HR IV PUSH 06/25/16 18:00 (Protonix Inj) 40 mg DAILY IV PUSH 06/26/16 09:00 (Morphine 1 Mg/ ml PORT CRANE OPERATOR) 30 mg UNSCH IV 06/25/16 15:00 PORT CRANE OPERATOR Dosage Infused (Pha) 1 Q8HR .XX 06/25/16 22:00 (Narcan Inj) 0.4 mg UNSCH PRN IV 06/25/16 15:00 Miscellaneous Information ALL NURSING DEPARTME... UNSCH PRN .XX 06/25/16 13:28 06/26/16 13:27 Javier Hawkins MD June 25, 2016 15:11
[2016-06-25] MEDS: MORPHINE SULFATE 30 MG/30 ML PCA IV SCH (15:37)
[2016-06-25] MEDS: METOCLOPRAMIDE HCL 10 MG/2 ML VIAL IV PUSH SCH (18:15)
[2016-06-25] MEDS: PCA - TOTAL MG MORPHINE DELIVERED PER SHIFT SCH (22:00)
[2016-06-26] VITALS: BP 99/54; PULSE 100; RESP 17; TEMP 96; O2SAT 98
[2016-06-26] MEDS: METOCLOPRAMIDE HCL 10 MG/2 ML VIAL IV PUSH SCH ×5 (00:07→23:32)
[2016-06-26] MEDS: metroNIDAZOLE 500 MG INJ 100 ML IV SCH ×4 (00:07→23:31)
[2016-06-26 04:00] VITALS: BP 93/50; PULSE 98; RESP 18; TEMP 96.1; O2SAT 97
[2016-06-26] MEDS: PCA - TOTAL MG MORPHINE DELIVERED PER SHIFT SCH ×3 (06:00→22:00)
[2016-06-26 08:00] VITALS: BP 89/54; PULSE 94; RESP 17; TEMP 97.3; O2SAT 95
[2016-06-26] MEDS: SODIUM CHLORIDE 0.9% FLUSH 10 ML FLUSH IV FLUSH SCH ×2 (08:20→20:15)
[2016-06-26] MEDS: DEXAMETHASONE SOD PHOS 4 MG/ML VIAL IV PUSH SCH (08:20)
[2016-06-26] MEDS: PANTOPRAZOLE SODIUM 40 MG VIAL IV PUSH SCH (08:26)
[2016-06-26] MEDS ORDERED: SODIUM CHLOR 0.9% 250 ML INJ 250 ML IV ONE (08:30)
[2016-06-26] MEDS: DEXT 5%-NACL 0.9% 1000 ML INJ 1,000 ML IV SCH ×4 (09:09→20:14)
--- NOTE | 2016-06-26 09:33 | HHI.PR ---
Subjective Remarks C/R Surg POD #1 afebrile, VSS UO good NGT dc'd Objective - Vital Signs Date Time Temp Pulse Resp B/P Pulse Ox O2 Delivery O2 Flow Rate FiO2 06/26/16 08:30 Nasal Cannula 2.00 06/26/16 08:00 97.3 94 17 89/54 95 Result Diagram: 06/26/16 0629 06/25/16 0700 Objective Remarks PE alert Abd - softer, still tympany, stoma pink A/P Assessment and Plan Imp: stable post-op Hgb decr may be from draw site?? OOB try PO slowly hold oncology consult until Dr Mckeon available Philippe Ovalle MD June 26, 2016 09:33
[2016-06-26] MEDS: CIPROFLOXACIN 400 MG PREMIX 200 ML IV SCH ×2 (10:10→21:24)
[2016-06-26 10:26] LABS: HEMATOCRIT 27.4 % (35.0-46.0); RED BLOOD COUNT 3.14 MIL/MM3 (4.00-5.30); WHITE BLOOD COUNT 5.7 TH/MM3 (4.0-11.0)
[2016-06-26 10:27] LABS: MEAN CELL VOLUME 87.2 FL (80.0-100.0); MEAN CORPUSCULAR HEMOGLOBIN 29.2 PG (27.0-34.0); MEAN CORPUSCULAR HGB CONC 33.4 % (32.0-36.0)
[2016-06-26 10:28] LABS: BICARBONATE 30.9 MEQ/L (21.0-32.0); HEMO FLAGS AUTO DIFF; PLATELET COUNT 172 TH/MM3 (150-450); RED CELL DISTRIBUTION WIDTH 21.1 % (11.6-17.2)
[2016-06-26 10:29] LABS: AUTOMATED NEUTROPHIL # 4.9 TH/MM3 (1.8-7.7); BASOPHIL % 0.1 % (0.0-2.0); EOSINOPHIL % 0.1 % (0.0-4.0); LYMPH % 5.9 % (9.0-44.0); LYMPHOCYTE # 0.3 TH/MM3 (1.0-4.8); NEUT % 86.9 % (16.0-70.0)
[2016-06-26 10:54] LABS: BANDS 50 % (0-6); METAMYELOCYTES 1 % (0-1); NEUTROPHIL # MANUAL DIFF 5.1 TH/MM3 (1.8-7.7); POLYS (SEG NEUTROPHILS) 38 % (16-70); WBC DIFF SAMPLE 100
[2016-06-26 10:55] LABS: SCAN/DIFF FINAL DIFF MANUAL
[2016-06-26 11:47] VITALS: BP 97/55; PULSE 97; RESP 16; TEMP 97.5; O2SAT 91
--- NOTE | 2016-06-26 13:43 | HHI.PR ---
Subjective Remarks Having some pain but the morphine helps. no nausea or vomiting at this time. no CP/SOB Objective Vitals Vital Signs Date Time Temp Pulse Resp B/P Pulse Ox O2 Delivery O2 Flow Rate FiO2 06/26/16 11:47 97.5 97 16 97/55 91 06/26/16 11:47 91 Room Air 06/26/16 10:30 Room Air 06/26/16 08:30 Nasal Cannula 2.00 06/26/16 08:00 97.3 94 17 89/54 95 06/26/16 06:00 17 06/26/16 04:00 96.1 98 18 93/50 97 06/26/16 00:00 96.0 100 17 99/54 98 06/25/16 22:00 18 06/25/16 20:00 96.0 108 18 100/51 96 06/25/16 19:27 96 Nasal Cannula 3.00 06/25/16 16:00 97.8 106 14 100/58 95 Nasal Cannula 3 06/25/16 16:00 96.4 106 15 96/56 98 06/25/16 15:37 15 06/25/16 15:30 106 14 95 Nasal Cannula 3 06/25/16 15:15 106 11 99/54 95 Nasal Cannula 4 06/25/16 15:00 107 11 93/53 90 Nasal Cannula 4 06/25/16 14:45 107 11 93/53 90 Nasal Cannula 4 06/25/16 14:30 106 12 96/53 93 Simple Mask 6 06/25/16 14:15 106 14 95 Simple Mask 6 06/25/16 14:00 109 15 104/55 93 Simple Mask 6 06/25/16 13:45 105 15 102/59 90 Non-Rebreather 15 06/25/16 13:40 105 17 102/57 90 Non-Rebreather 15 06/25/16 13:35 109 17 104/58 90 Non-Rebreather 15 06/25/16 13:30 110 15 96/52 95 Non-Rebreather 15 I/O 06/25/16 06/25/16 06/25/16 06/26/16 06/26/16 06/26/16 07:00 15:00 23:00 07:00 15:00 23:00 Intake Total 1640 ml 2505 ml 950 ml 1569 ml 702 ml Output Total 200 ml 1575 ml 875 ml 900 ml 0 ml Balance 1440 ml 930 ml 75 ml 669 ml 702 ml Intake Oral 200 ml 0 ml 0 ml 0 ml IV Total 1440 ml 805 ml 950 ml 1569 ml 702 ml Other 1700 ml Output Urine Total 1475 ml 875 ml 900 ml Gastric Drainage Total 200 ml 50 ml Drainage Total 0 ml Estimated Blood Loss 50 ml # Voids 1 1 # Bowel Movements 0 0 0 Result Diagram: 06/26/16 0930 06/26/16 0930 Imaging Last Impressions Abdomen/Pelvis CT 06/24/16 1545 Signed Impressions: Service Date/Time: Friday, June 24, 2016 19:30 - CONCLUSION: Widespread metastatic disease. Likely distal bowel obstruction and right ureteral obstruction. See above for complete details Alberto Mckinley MD Abdomen X-Ray 06/24/16 0000 Signed Impressions: Service Date/Time: Friday, June 24, 2016 23:44 - CONCLUSION: 1. NG tube appears to be in the mid to distal esophagus. Recommend advancing the NG tube approximately 10 cm. 2. Hydronephrosis of the right collecting system with what appears to be obstruction at the mid right ureter. 3. Nonspecific air-filled loops of small and large bowel throughout the abdomen. Kalia Rasmussen MD Objective Remarks GENERAL: Middle-aged female in no acute distress. CARDIOVASCULAR: Regular rate and rhythm. No obvious murmurs to auscultation. RESPIRATORY: No obvious rhonchi or wheezing. Clear to auscultation. Breath sounds equal bilaterally. GASTROINTESTINAL: Abdomen soft, appropriately tender post sx, ostomy noted and viable. MUSCULOSKELETAL: Extremities without edema. No obvious deformities. NEUROLOGICAL: Awake, alert and oriented x4. Moving both upper and lower extremities spontaneously. A/P Problem List: (1) Metastatic breast cancer ICD Code: C50.919 Status: Acute (2) Urethral obstruction ICD Code: N36.8 Status: Acute (3) Bowel obstruction ICD Code: K56.60 Status: Acute (4) Hypercalcemia ICD Code: E83.52 Status: Acute (5) Hypotension ICD Code: I95.9 Status: Acute (6) Bandemia ICD Code: D72.825 Status: Acute Assessment and Plan 1. Metastatic Breast CA: to CARD MAKER, Liver and Colon, s/p Radiation, plan to initiate Chemo however was hypotensive requiring IVF, Chemo on hold. Follows w / Dr. Mckeon as outpatient, and he has been consulted. Currently on Decadron taper for CARD MAKER mets, this has been switched to IV Decadron in light of bowel obstruction. 2. Bowel Obstruction: Constipation, no BM x10 days. CT Abd/Pelvis w/ widespread metastatic disease, likely distal bowel obstruction and right ureteral obstruction. continue NPO, advance per surgery, IVFs/p exploratory laparomy/colostomy POD#0. H&H this morning was thought to be <7, however lab called back and notified up that it was an error. H&H 9.1 3. Ureteral Obstruction: As above, CT w/ right ureteral obstruction. Dr. Hawkins on board. 4. Hypercalcemia: Ca 13.0, likely secondary to significant dehydration. today repeat was 10.8 continue IVF, repeat labs in am. 5. Hypotension: Recurrent. BP 87/50, HR 120 on arrival, s/p IVF w/ repeat BP currently 103/52, HR 80. Received a bolus IV NS 500ml x 1. improved onD5NS @ 80ml/hr 6. Bandemia: WBC 3.1, Bands 32. on admission. repeat this morning WBC 5.7 w 50 bands. U/a negative. Blood Cultures neg x 1 day, continue Cipro/Flagyl for possible intra-abdominal infection. Repeat labs in am. 7. DVT Prophylaxis: SCD/Teds. Discharge Planning d/c pending further work-up and clinical improvement Latricia Hall MD June 26, 2016 13:43
[2016-06-26 16:40] VITALS: BP 109/53; PULSE 93; RESP 16; TEMP 96.8; O2SAT 91
--- NOTE | 2016-06-26 18:22 | PD.CONS ---
HPI Service Urology Consult Requested By Reason for Consult Ureteral obstruction Primary Care Physician Eddie Sharif M.D. Diagnosis: (1) Metastatic breast cancer ICD Code: C50.919 (2) Urethral obstruction ICD Code: N36.8 (3) Bowel obstruction ICD Code: K56.60 (4) Hypercalcemia ICD Code: E83.52 (5) Hypotension ICD Code: I95.9 (6) Bandemia ICD Code: D72.825 History of Present Illness 56yo female with history of metastatic breast cancer with recent bowel obstruction s/p colostomy with colorectal surgery with evidence of some right sided hydronephrosis and questionable obstruction. Patient reports doing well today. Creatinine appears normal and has been stable. She report no flank pain and no lower urinary tract symptoms. She denies any history of recurrent UTIs, no hematuria. No dysuria. Findings of the right hydronephrosis was seen on CT scan upon admit. Review of Systems ROS Limitations: Clinical Condition Constitutional: DENIES: Fever Endocrine: DENIES: Polyuria Eyes: DENIES: Blurred vision Ears, nose, mouth, throat: DENIES: Hearing loss Respiratory: DENIES: Apneas Cardiovascular: DENIES: Chest pain Gastrointestinal: COMPLAINS OF: Abdominal pain, Nausea, Vomiting Genitourinary: DENIES: Urgency, Hematuria, Dysuria Musculoskeletal: COMPLAINS OF: Back pain Hematologic/lymphatic: DENIES: Bruising Immunologic/allergic: DENIES: Eczema Neurologic: DENIES: Abnormal gait Psychiatric: DENIES: Anxiety Except as stated in HPI: all other systems reviewed are Neg Past Family Social History Past Medical History Metastatic Breast CA to Brain, Liver and Colon Past Surgical History No prior surgeries Reported Medications Reported Meds & Active Scripts Active Reported Aspirin 81 Mg Chew 81 Mg CHEW DAILY Dexamethasone 4 Mg Tab 4 Mg PO DAILY Vitamin D (Cholecalciferol) 1,000 Unit Tab 1,000 Units PO DAILY Allergies: Coded Allergies: No Known Allergies (Unverified , 06/24/16) Active Ordered Medications Current Medications Medications (Trade) Dose Ordered Sig/Nico Route Start Time Stop Time Status Last Admin (NS Flush) 2 ml UNSCH PRN IV FLUSH 06/24/16 21:00 (NS Flush) 2 ml BID IV FLUSH 06/24/16 21:00 06/26/16 08:20 (Zofran Inj) 4 mg Q6H PRN IVP 06/24/16 21:00 (Morphine Inj) 2 mg Q3H PRN IV 06/24/16 21:00 06/24/16 21:37 (Morphine Inj) 4 mg Q3H PRN IV 06/24/16 21:00 06/25/16 00:11 Dexamethasone Sodium Phosphate 4 mg 4 mg DAILY IV PUSH 06/25/16 09:00 06/26/16 08:20 Ciprofloxacin/ Dextrose 200 ml @ 200 mls/hr Q12H IV 06/24/16 23:00 06/26/16 10:10 (Flagyl 500 Mg Inj) 100 ml @ 100 mls/hr Q8H IV 06/25/16 00:00 06/26/16 16:36 (Reglan Inj) 10 mg Q6HR IV PUSH 06/25/16 18:00 06/26/16 16:38 (Protonix Inj) 40 mg DAILY IV PUSH 06/26/16 09:00 06/26/16 08:26 (Morphine 1 Mg/ ml RECORDING STUDIO SET UP WORKER) 30 mg UNSCH IV 06/25/16 15:00 06/25/16 15:37 RECORDING STUDIO SET UP WORKER Dosage Infused (Pha) 1 Q8HR .XX 06/25/16 22:00 06/26/16 10:30 Naloxone HCl 0.4 mg 0.4 mg UNSCH PRN IV 06/25/16 15:00 Dextrose/Sodium Chloride 1,000 ml @ 80 mls/hr [id number] IV 06/25/16 16:00 06/26/16 16:36 (NS 250 ml Inj) 250 ml @ 15 mls/hr ONCE ONCE IV 06/26/16 08:30 06/27/16 01:09 Family History Family history reviewed and noncontributory to present illness Social History Negative for alcohol, tobacco or drugs. Physical Exam Vital Signs Date Time Temp Pulse Resp B/P Pulse Ox O2 Delivery O2 Flow Rate FiO2 06/26/16 16:40 96.8 93 16 109/53 91 06/26/16 11:47 97.5 97 16 97/55 91 06/26/16 11:47 91 Room Air 06/26/16 10:30 Room Air 06/26/16 08:30 Nasal Cannula 2.00 06/26/16 08:00 97.3 94 17 89/54 95 06/26/16 06:00 17 06/26/16 04:00 96.1 98 18 93/50 97 06/26/16 00:00 96.0 100 17 99/54 98 06/25/16 22:00 18 06/25/16 20:00 96.0 108 18 100/51 96 06/25/16 19:27 96 Nasal Cannula 3.00 Physical Exam GENERAL: This is a well-nourished, well-developed patient, in no apparent distress. SKIN: No rashes, ecchymoses or lesions. Cool and dry. HEAD: Atraumatic. Normocephalic EYES: Extraocular motions intact. No scleral icterus. No injection or drainage. ENT: Nose without bleeding, purulent drainage. Airway patent. NECK: Trachea midline. No JVD or lymphadenopathy. CARDIOVASCULAR: Normal pulses RESPIRATORY: Nonlabored GASTROINTESTINAL: Abdomen soft, tender. stoma GENITOURINARY: Erickson catheter in place with clear yellow urine noted MUSCULOSKELETAL: Extremities without clubbing, cyanosis, or edema.. NEUROLOGICAL: Awake and alert.. Motor and sensory grossly within normal limits. Normal speech. Laboratory Tests Test 06/26/16 09:30 White Blood Count 5.7 Red Blood Count 3.14 Hemoglobin 9.1 Hematocrit 27.4 Mean Corpuscular Volume 87.2 Mean Corpuscular Hemoglobin 29.2 Mean Corpuscular Hemoglobin 33.4 Concent Red Cell Distribution Width 21.1 Platelet Count 172 Mean Platelet Volume 7.1 Neutrophils (%) (Auto) 86.9 Lymphocytes (%) (Auto) 5.9 Monocytes (%) (Auto) 7.0 Eosinophils (%) (Auto) 0.1 Basophils (%) (Auto) 0.1 Neutrophils # (Auto) 4.9 Lymphocytes # (Auto) 0.3 Monocytes # (Auto) 0.4 Eosinophils # (Auto) 0.0 Basophils # (Auto) 0.0 CBC Comment AUTO DIFF Differential Total Cells 100 Counted Neutrophils % (Manual) 38 Band Neutrophils % 50 Lymphocytes % 2 Monocytes % 9 Neutrophils # (Manual) 5.1 Metamyelocytes 1 Differential Comment FINAL DIFF MANUAL Sodium Level 139 Potassium Level 3.0 Chloride Level 101 Carbon Dioxide Level 30.9 Anion Gap 7 Blood Urea Nitrogen 4 Creatinine 0.30 Estimat Glomerular Filtration 230 Rate Random Glucose 160 Calcium Level 10.8 Blood Type A POSITIVE Antibody Screen NEGATIVE Crossmatch Leukocyte-Reduced Red Blood Cells Blood Bank Comment Date/Time Procedure Status Source Growth 5/13/17 01:37 Aerobic Blood Culture - Preliminary Resulted Blood Peripheral NO GROWTH IN 1 DAY 06/25/16 01:37 Anaerobic Blood Culture - Preliminary Resulted Blood Peripheral NO GROWTH IN 1 DAY Result Diagram: 06/26/1630 06/26/1630 Personally reviewed images: Yes Imaging Last Impressions Abdomen/Pelvis CT 06/24/16 1545 Signed Impressions: Service Date/Time: Friday, June 24, 2016 19:30 - CONCLUSION: Widespread metastatic disease. Likely distal bowel obstruction and right ureteral obstruction. See above for complete details Alberto Mckinley MD Abdomen X-Ray 06/24/16 0000 Signed Impressions: Service Date/Time: Friday, June 24, 2016 23:44 - CONCLUSION: 1. NG tube appears to be in the mid to distal esophagus. Recommend advancing the NG tube approximately 10 cm. 2. Hydronephrosis of the right collecting system with what appears to be obstruction at the mid right ureter. 3. Nonspecific air-filled loops of small and large bowel throughout the abdomen. Kalia Rasmussen MD Assessment and Plan Problem List: (1) Urethral obstruction ICD Code: N36.8 Status: Acute (2) Metastatic disease ICD Code: C79.9 Status: Acute (3) SBO (small bowel obstruction) ICD Code: K56.69 Status: Acute (4) Metastatic breast cancer ICD Code: C50.919 Status: Acute Assessment and Plan -At this time, the patient has normal renal function without any flank pain. We discussed her CT scan findings of right hydronephrosis. -No intervention indicated at this time from a urological standpoint -If her renal function deteriorates, she may require nephrostomy tube vs ureteral stent. However at this time no need for intervention -Patient may follow-up with Urology after discharge with further evaluation and surveillance of her renal function and hydronephrosis -Please call with questions Javier Hawkins MD June 26, 2016 18:22
[2016-06-26 20:15] VITALS: BP 99/54; PULSE 98; RESP 19; TEMP 97.6; O2SAT 92
[2016-06-27] VITALS (8 sets, daily range): BP systolic 97–110; BP diastolic 55–73; PULSE 88–105; RESP 16–18; TEMP 95.9–96.7; O2SAT 91–96
[2016-06-27 05:12] LABS: AUTOMATED NEUTROPHIL # 4.8 TH/MM3 (1.8-7.7); BASOPHIL % 0.1 % (0.0-2.0); EOSINOPHIL % 0.1 % (0.0-4.0); HEMATOCRIT 28.1 % (35.0-46.0); LYMPH % 6.8 % (9.0-44.0); LYMPHOCYTE # 0.4 TH/MM3 (1.0-4.8); MEAN CELL VOLUME 86.9 FL (80.0-100.0); MEAN CORPUSCULAR HEMOGLOBIN 28.4 PG (27.0-34.0); MEAN CORPUSCULAR HGB CONC 32.7 % (32.0-36.0); MONO % 8.3 % (0.0-8.0); NEUT % 84.7 % (16.0-70.0); PLATELET COUNT 165 TH/MM3 (150-450); RED BLOOD COUNT 3.24 MIL/MM3 (4.00-5.30); WHITE BLOOD COUNT 5.7 TH/MM3 (4.0-11.0)
[2016-06-27 05:21] LABS: HEMO FLAGS AUTO DIFF
[2016-06-27 05:34] LABS: BICARBONATE 30.6 MEQ/L (21.0-32.0)
[2016-06-27] MEDS: METOCLOPRAMIDE HCL 10 MG/2 ML VIAL IV PUSH SCH ×3 (05:38→18:06)
[2016-06-27 05:41] LABS: POTASSIUM 2.7 MEQ/L (3.5-5.1)
[2016-06-27] MEDS: PCA - TOTAL MG MORPHINE DELIVERED PER SHIFT SCH ×3 (06:00→21:56)
[2016-06-27] MEDS ORDERED: POTASSIUM CHLOR 40 MEQ PREMIX 100 ML IV ONE (06:00)
[2016-06-27] MEDS ORDERED: POTASSIUM CHLORIDE 20 MEQ CONTROLLED RELEASE TAB PO ONE (06:00)
[2016-06-27 07:00] LABS: BANDS 37 % (0-6); MYELOCYTES 1 % (0-0); NEUTROPHIL # MANUAL DIFF 5.2 TH/MM3 (1.8-7.7); PLATELET ESTIMATE SMEAR NORMAL (NORMAL); PLATELET MORPHOLOGY NORMAL (NORMAL); POLYS (SEG NEUTROPHILS) 53 % (16-70); SCAN/DIFF FINAL DIFF MANUAL; WBC DIFF SAMPLE 100
--- NOTE | 2016-06-27 07:39 | MP ---
cc: CARYL HAGEN M.D., ANDREW H. M.D. DATE OF SURGERY June 25, 2016 PREOPERATIVE DIAGNOSES History of widely metastatic breast cancer. Colonic obstruction. PROCEDURE Exploratory laparotomy with diverting loop of transverse colostomy. POSTOPERATIVE DIAGNOSES History of widely metastatic breast cancer. Colonic obstruction. SURGEON Dr. Ovalle ASSESSMENT Dr. Pasquale Whelan PROCEDURE The patient was placed in the supine position. After adequate general anesthesia, her abdomen was prepped with Betadine solution and draped in the usual sterile fashion. With Dr. Whelan's assistance the abdomen was opened through a midline incision. Upon entering the abdomen, the transverse colon was easily visualized and felt to be quite distended with mostly air and some liquid feces. The remainder of the abdomen was explored manually and there did appear to be some retroperitoneal irregularity on the right side. No other gross of peritoneal disease was easily palpable. The omentum was taken off the transverse colon by entering the lesser sac, mobilizing the gastrocolic omentum. An avascular plane was then created in the mesentery. A circular stab wound was created in the right abdomen and the rectus muscles split along the direction of their fibers, the loop of transverse colon brought up through the circular stab wound without tension and with good blood supply. The midline incision was then closed anatomically using a #1 PDS suture to reapproximate the midline fascia. The subcu tissue was irrigated copiously and the skin closed with a running subcuticular Vicryl suture. The wound area was washed with normal saline and dried, sterile dressing of Telfa and gauze applied. Finally, a transverse colotomy was made along the transverse colon loop and both proximal and distal limbs were matured in the usual Valentine fashion by placing a row interrupted chromic catgut sutures around the circumference. At completion the stoma did appear to be viable and was patent through both limbs. Sterile colostomy appliance was fitted over the new stoma. The patient tolerated the procedure quite well and was brought to recovery room in stable condition. Sponge and needle counts were correct at the end of the procedure. MD JAMIE Starkey/DARIANA /10:29 PM /7:32 AM
--- NOTE | 2016-06-27 07:45 | MB ---
cc: CARYL HAGEN M.D., ANDREW H. M.D. DATE June 25, 2016 REASON FOR CONSULTATION Colonic obstruction. HISTORY OF PRESENT ILLNESS Mrs. Luciano is an unfortunate 56-year-old female who has been battling breast cancer now since 2008. She has been on multiple courses of different chemotherapy and hormonal therapy with progression of disease. Most recently she was found to have a brain metastasis. She has also had abdominal metastasis as well as recently found liver metastasis. Patient has been having increasing amounts of constipation and difficulty with stools for the last several weeks. 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 For the last several days she has had no gas or flatus and has had no bowel movements. She has complained of increased abdominal distension and pain. The patient came to emergency room last evening and underwent a CAT scan which shows a significant transition zone in the sigmoid colon consistent with the obstruction and very significant proximal of colonic dilatation. She also has a ureteral obstruction on the right side. The patient was admitted for additional evaluation, IV fluids and bowel rest. Please see the admitting history and physical for complete past medical and surgical history. PERTINENT PHYSICAL GENERAL: A very thin, chronically ill female in no acute distress. HEENT: Remarkable for pale but dry membranes. Nonicteric sclerae. NECK: A little stiff, without adenopathy. CHEST: Diminished in the bases, clear anteriorly. HEART: Regular rhythm. ABDOMEN: Quite firm and tense, tympanic, slightly tender. No significant rebound or guarding. No masses. EXTREMITIES: No cyanosis or clubbing and 1+ pedal edema. LABORATORY STUDIES CT scan reviewed. Hemoglobin was 11.3, platelet count was 253,000. Electrolytes remarkable for a BUN of 12 and creatinine of 0.3. IMPRESSION Colonic obstruction due to metastatic breast cancer. Extensive discussion with the patient and her about the colonic obstruction. Certainly not a curative situation. Palliation would involve a diverting loop colostomy and potential of small bowel obstruction was also possible due to the other metastatic disease in the abdomen. The risks, benefits and alternatives to proceeding with surgery were all reviewed and the patient and her wished to proceed with the diverting colostomy. We will set up in conjunction with the operating room later this afternoon. MD JAMIE tSarkey/DARIANA /11:05 AM /7:40 AM
[2016-06-27] MEDS: PANTOPRAZOLE SODIUM 40 MG VIAL IV PUSH SCH (08:01)
[2016-06-27] MEDS: DEXAMETHASONE SOD PHOS 4 MG/ML VIAL IV PUSH SCH (08:01)
[2016-06-27] MEDS: SODIUM CHLORIDE 0.9% FLUSH 10 ML FLUSH IV FLUSH SCH ×2 (08:02→21:50)
[2016-06-27] MEDS: metroNIDAZOLE 500 MG INJ 100 ML IV SCH ×2 (08:02→15:56)
[2016-06-27] MEDS: CIPROFLOXACIN 400 MG PREMIX 200 ML IV SCH ×2 (11:41→21:50)
--- NOTE | 2016-06-27 13:40 | HHI.PR ---
Subjective Remarks Currently having pain, has been taking the pain meds. Didn't walk today yet but has been doing the incentive spirometry as instructed. no CP/SOB/N/V Objective Vitals Vital Signs Date Time Temp Pulse Resp B/P Pulse Ox O2 Delivery O2 Flow Rate FiO2 06/27/16 11:56 95.9 97 16 97/61 93 06/27/16 08:00 96.0 94 16 103/63 91 06/27/16 07:55 Room Air 06/27/16 06:32 92 06/27/16 06:00 18 06/27/16 04:40 96.2 89 17 100/55 92 06/27/16 00:17 96.0 88 17 98/55 92 06/26/16 22:00 18 06/26/16 20:15 97.6 98 19 99/54 92 06/26/16 16:40 96.8 93 16 109/53 91 I/O 06/26/16 06/26/16 06/26/16 06/27/16 06/27/16 06/27/16 06:59 14:59 22:59 06:59 14:59 22:59 Intake Total 1569 ml 702 ml 919 ml 897 ml Output Total 900 ml 1350 ml 700 ml 1150 ml Balance 669 ml -648 ml 219 ml -253 ml Intake Oral 0 ml 240 ml 240 ml IV Total 1569 ml 702 ml 679 ml 657 ml Output Urine Total 900 ml 1350 ml 700 ml 1150 ml Drainage Total 0 ml # Bowel Movements 0 0 0 Result Diagram: 06/27/16 0418 06/27/16 0418 Imaging Last Impressions Abdomen/Pelvis CT 06/24/16 1545 Signed Impressions: Service Date/Time: Friday, June 24, 2016 19:30 - CONCLUSION: Widespread metastatic disease. Likely distal bowel obstruction and right ureteral obstruction. See above for complete details Alberto Mckinley MD Abdomen X-Ray 06/24/16 0000 Signed Impressions: Service Date/Time: Friday, June 24, 2016 23:44 - CONCLUSION: 1. NG tube appears to be in the mid to distal esophagus. Recommend advancing the NG tube approximately 10 cm. 2. Hydronephrosis of the right collecting system with what appears to be obstruction at the mid right ureter. 3. Nonspecific air-filled loops of small and large bowel throughout the abdomen. Kalia J. Siragusa, MD Objective Remarks GENERAL: Middle-aged female in no acute distress. CARDIOVASCULAR: Regular rate and rhythm. No obvious murmurs to auscultation. RESPIRATORY: No obvious rhonchi or wheezing. Clear to auscultation. Breath sounds equal bilaterally. GASTROINTESTINAL: Abdomen soft, tender around the left upp and lower quadrant areas w deep palpation, no guarding or rebound, ostomy noted and air in bag. MUSCULOSKELETAL: Extremities without edema. No obvious deformities. NEUROLOGICAL: Awake, alert and oriented x4. Moving both upper and lower extremities spontaneously. A/P Problem List: (1) Metastatic breast cancer ICD Code: C50.919 Status: Acute (2) Urethral obstruction ICD Code: N36.8 Status: Acute (3) Bowel obstruction ICD Code: K56.60 Status: Acute (4) Hypercalcemia ICD Code: E83.52 Status: Acute (5) Hypotension ICD Code: I95.9 Status: Acute (6) Bandemia ICD Code: D72.825 Status: Acute Assessment and Plan 1. Metastatic Breast CA: to [employer], Liver and Colon, s/p Radiation, plan to initiate Chemo however was hypotensive requiring IVF, Chemo on hold. Follows w / Dr. Mckeon as outpatient, and he has been consulted. Currently on Decadron taper for [employer] mets, currently on IV Decadron in light of bowel obstruction. 2. Bowel Obstruction: Constipation, no BM x10 days. CT Abd/Pelvis w/ widespread metastatic disease, likely distal bowel obstruction and right ureteral obstruction. continue NPO, advance per surgery, IVFs/p exploratory laparomy/colostomy POD#1. H&H this morning 9.2 3. Ureteral Obstruction: As above, CT w/ right ureteral obstruction. Dr. Hawkins on board. 4. Hypercalcemia: Ca 13.0 on admission, today repeat was 11.6 continue. I personally discussed this w Dr. Mckeon who will evaluate pt tomorrow morning. Will continue w IVF for now, will give a dose of calcitriol SQ 400 units x 1. Consider IV pamidronate if worsening. repeat calcium in AM 5. Hypotension: on admission, improving. BP in the low normal. IVFs 6. Bandemia: WBC 3.1, Bands 32. on admission. repeat this morning WBC 5.7 w 37 bands. U/a negative. Blood Cultures neg x 2 day, continue Cipro/Flagyl for possible intra-abdominal infection. Repeat labs in am. 7. DVT Prophylaxis: SCD/Teds. Discharge Planning d/c pending further work-up and clinical improvement Dr. Mckeon, oncologist, will be evaluating the patient in the AM. Pt and family notified of this Latricia Hall MD June 27, 2016 13:39
[2016-06-27] MEDS ORDERED: CALCITONIN SALMON INJ 400 UNITS/2 ML VIAL SQ ONE (14:00)
[2016-06-27] MEDS: DEXT 5%-NACL 0.9% 1000 ML INJ 1,000 ML IV SCH (17:26)
[2016-06-28] VITALS (8 sets, daily range): BP systolic 93–107; BP diastolic 59–71; PULSE 98–103; RESP 16–18; TEMP 95.8–96.8; O2SAT 92–98
[2016-06-28] MEDS: DEXT 5%-NACL 0.9% 1000 ML INJ 1,000 ML IV SCH ×2 (00:03→08:17)
[2016-06-28] MEDS: metroNIDAZOLE 500 MG INJ 100 ML IV SCH ×4 (00:59→23:11)
[2016-06-28] MEDS: METOCLOPRAMIDE HCL 10 MG/2 ML VIAL IV PUSH SCH ×5 (00:59→23:10)
[2016-06-28] MEDS: PCA - TOTAL MG MORPHINE DELIVERED PER SHIFT SCH ×3 (05:33→22:00)
[2016-06-28 07:17] LABS: AUTOMATED NEUTROPHIL # 7.7 TH/MM3 (1.8-7.7); BASOPHIL % 0.1 % (0.0-2.0); EOSINOPHIL % 0.3 % (0.0-4.0); HEMATOCRIT 32.6 % (35.0-46.0); LYMPH % 7.5 % (9.0-44.0); LYMPHOCYTE # 0.7 TH/MM3 (1.0-4.8); MEAN CELL VOLUME 85.9 FL (80.0-100.0); MEAN CORPUSCULAR HEMOGLOBIN 28.1 PG (27.0-34.0); MEAN CORPUSCULAR HGB CONC 32.7 % (32.0-36.0); NEUT % 84.1 % (16.0-70.0); PLATELET COUNT 190 TH/MM3 (150-450); RED CELL DISTRIBUTION WIDTH 22.1 % (11.6-17.2); WHITE BLOOD COUNT 9.1 TH/MM3 (4.0-11.0)
[2016-06-28 07:21] LABS: HEMO FLAGS AUTO DIFF
[2016-06-28 07:58] LABS: BICARBONATE 24.3 MEQ/L (21.0-32.0); POTASSIUM 3.2 MEQ/L (3.5-5.1)
[2016-06-28] MEDS: DEXAMETHASONE SOD PHOS 4 MG/ML VIAL IV PUSH SCH (08:10)
[2016-06-28] MEDS: PANTOPRAZOLE SODIUM 40 MG VIAL IV PUSH SCH (08:10)
[2016-06-28] MEDS: SODIUM CHLORIDE 0.9% FLUSH 10 ML FLUSH IV FLUSH SCH ×2 (08:11→21:00)
[2016-06-28 08:16] LABS: BANDS 26 % (0-6); METAMYELOCYTES 1 % (0-1); MYELOCYTES 2 % (0-0); NEUTROPHIL # MANUAL DIFF 8.1 TH/MM3 (1.8-7.7); POLYS (SEG NEUTROPHILS) 60 % (16-70); WBC DIFF SAMPLE 100
[2016-06-28 08:17] LABS: TOXIC GRANULATION 2+ (NORMAL); TOXIC VACUOLATION PRESENT (NONE SEEN)
[2016-06-28 08:20] LABS: SCAN/DIFF FINAL DIFF MANUAL
--- NOTE | 2016-06-28 08:57 | MB ---
cc: CARYL HAGEN M.D. DATE OF CONSULTATION 06/28/[address] Hall REASON FOR CONSULTATION Oncology consult to render opinion regarding patient with metastatic breast cancer admitted with bowel obstruction and hypercalcemia. HISTORY OF PRESENT ILLNESS The patient is very pleasant 56-year-old female with a long history of metastatic breast cancer who presented to the hospital with a complaint of constipation with no bowel movement for 10 days, as well as increased abdominal pain which started last Monday. She vomited once on and another time on Monday before her presentation. She had tried various laxative including lactulose without any relief of her constipation. On presentation, CT of the abdomen and pelvis showed distal bowel obstruction and possible right ureteral obstruction. She underwent diverting loop colostomy on June 25. She is feeling a little bit better, although is still very weak. She has not started eating yet. She has not been drinking much fluid prior to her presentation. She denies any fever or chills. She is just getting weaker. She has lost some weight, but cannot quantify it. She has no chest pain. She denies shortness of breath or cough. Denies any dysuria or hematuria. PAST MEDICAL HISTORY 1. Metastatic breast cancer. 2. She had massive disease in the brain, liver and colon. 3. Anxiety PAST SURGICAL HISTORY Port placement PAST SURGICAL HISTORY 1. Bilateral breast reconstruction 2. Left adrenalectomy 3. Left breast implant was subsequently removed. 4. Lumpectomy followed by double mastectomy in 2009. FAMILY HISTORY Two sisters and one brother all alive and well. SOCIAL HISTORY Denies any tobacco or alcohol use. ALLERGIES No known drug allergies. CURRENT MEDICATIONS 1. Protonix 2. Reglan 3. Decadron 4. Flagyl 5. Cipro REVIEW OF SYSTEMS CONSTITUTIONAL: Denies weight loss, increased weakness. EYES: Denies any blurry vision or double vision. ENT: No mouth sores or voice changes. CARDIOVASCULAR: No chest pressure or palpitation. RESPIRATORY: Denies any shortness of breath or cough. GI: As above. : Denies any dysuria or hematuria. MUSCULOSKELETAL: Has left flank pain and low back pain which is chronic. HEMATOLOGY: Negative. ENDOCRINE: Negative. DERMATOLOGY: Negative. PSYCHIATRIC: Has anxiety. NEUROLOGIC: Negative. PHYSICAL EXAMINATION Temperature 96.2, pulse 99, blood pressure 100/59, O2 saturation 93% room air. GENERAL: She is alert and oriented x3, but she is very weak. HEENT: Atraumatic, normocephalic. Pupils equal, round and reactive to light. Extraocular muscles intact. No sclerae icterus. Oropharynx has dry mucosa. NECK: No thyromegaly. No palpable masses. LYMPHATICS: No palpable cervical, clavicular, axillary or inguinal lymph nodes. CARDIOVASCULAR: Regular S1-S2 no murmur. LUNGS: Clear to auscultation bilaterally. ABDOMEN: Soft with positive bowel sounds. No significant tenderness. Colostomy noted. EXTREMITIES: No cyanosis, clubbing or edema. BACK: No paravertebral tenderness. SKIN: No rash or petechiae. NEUROLOGIC: Exam is nonfocal. LABORATORY DATA Reviewed ASSESSMENT 1. Distal bowel obstruction. She presented with constipation. She started having abdominal pain on Monday. CT abdomen and pelvis showed distal bowel obstruction. She underwent exploratory laparotomy with diverting loop transverse colostomy on June 25. During surgery, there was some irregularity noted in the right retroperitoneum, but no other gross peritoneal disease palpable. CT of the abdomen and pelvis showed metastatic disease in the right adrenal, upper para-aortic and lower left perinephric areas as well as right iliac chain lymph node. 2. Hypercalcemia possibly due to bone metastasis versus paraneoplastic syndrome. She received a dose of calcitonin and calcium trended down slightly. I am going to give her a dose of pamidronate 3. Metastatic breast cancer. She was first diagnosed with breast cancer in 2009. Tumor was triple positive. She received neoadjuvant TAC chemotherapy followed by surgical resection. Three positive lymph nodes noted. She then received radiation to chest wall. She received nine cycles of Herceptin, but stopped for financial reasons. She was started on tamoxifen. In 2011, she developed metastatic disease in the left adrenal gland. She was treated with Abraxane and Herceptin and underwent left adrenalectomy in 2012. She later was treated with Kadcyla followed by Faslodex. She developed progression of disease again and restart Kadcyla. She was also treated with Lapatinib and Capecitabine. She developed regression of disease and was treated with THP chemotherapy. Most recently in March, PET scan showed progression of disease again. She also developed brain metastasis. She received a brain irradiation which she just completed last month. She was started on Navelbine and Herceptin, but only received one and a half cycles so far because she has to stop the chemotherapy for radiation. Her last chemotherapy was in May. I had an extensive discussion with the patient and her sister at the bedside. We discussed the prognosis and treatment options. Once her performance status improves, I plan to resume her chemotherapy. 4. Brain metastasis. She just completed radiation. She will continue Decadron. She has no neurologic symptom at this time. PLAN 1. We will give her a dose of Promidronate. 2. Plan to get a CT of the chest. 3. Monitor CBC and calcium level. 4. Get a bone scan to evaluate for bone Metastasis. 5. Continue DVT prophylaxis. 6. Extensive discussion with the patient and her sister. Thank you Dr. Hall for asking me to see this patient. MD NATASHA Bird/XANDER /8:05 AM /8:31 AM TYRONE
[2016-06-28] MEDS ORDERED: PAMIDRONATE INJ 60 MG in SODIUM CHLORID 0.9% 500 ML INJ 500 ML IV ONE (10:00)
[2016-06-28] MEDS: CIPROFLOXACIN 400 MG PREMIX 200 ML IV SCH ×2 (11:30→23:10)
[2016-06-28] MEDS: D5-NS + KCL 20 MEQ INJ 1,000 ML IV SCH (15:26)
[2016-06-28] MEDS ORDERED: POTASSIUM CHLORIDE INJ 20 MEQ in DEXT 5%-NACL 0.9% 1000 ML INJ 1,000 ML IV SCH (16:00)
--- NOTE | 2016-06-28 17:07 | HHI.PR ---
Subjective Remarks Pt complaining of back pain, about to go for a walk. abdominal pain better today. no nausea or vomiting Objective Vitals Vital Signs Date Time Temp Pulse Resp B/P Pulse Ox O2 Delivery O2 Flow Rate FiO2 06/28/16 12:00 96.5 102 18 107/65 92 06/28/16 08:02 98 06/28/16 08:02 Room Air 06/28/16 08:00 96.8 98 18 95/59 94 06/28/16 05:33 16 06/28/16 04:00 96.2 99 16 100/59 93 06/28/16 00:04 101 17 93/64 93 06/27/16 23:49 Room Air 06/27/16 21:56 17 06/27/16 21:00 96 06/27/16 19:00 96.1 105 16 110/73 93 I/O 06/27/16 06/27/16 06/27/16 06/28/16 06/28/16 06/28/16 07:00 15:00 23:00 07:00 15:00 23:00 Intake Total 897 ml 493 ml 687 ml Output Total 1150 ml 1750 ml 650 ml 1000 ml Balance -253 ml -1750 ml -157 ml -313 ml Intake Oral 240 ml 0 ml 0 ml IV Total 657 ml 493 ml 687 ml Output Urine Total 1150 ml 1750 ml 650 ml 1000 ml # Bowel Movements 0 0 0 Result Diagram: 06/28/16 0624 06/28/16 0642 Imaging Last Impressions Abdomen/Pelvis CT 06/24/16 1545 Signed Impressions: Service Date/Time: Friday, June 24, 2016 19:30 - CONCLUSION: Widespread metastatic disease. Likely distal bowel obstruction and right ureteral obstruction. See above for complete details Alberto Mckinley MD Abdomen X-Ray 06/24/16 0000 Signed Impressions: Service Date/Time: Friday, June 24, 2016 23:44 - CONCLUSION: 1. NG tube appears to be in the mid to distal esophagus. Recommend advancing the NG tube approximately 10 cm. 2. Hydronephrosis of the right collecting system with what appears to be obstruction at the mid right ureter. 3. Nonspecific air-filled loops of small and large bowel throughout the abdomen. Kalia Rasmussen MD Objective Remarks GENERAL: Middle-aged female in no acute distress. CARDIOVASCULAR: Regular rate and rhythm. No obvious murmurs to auscultation. RESPIRATORY: No obvious rhonchi or wheezing. Clear to auscultation. Breath sounds equal bilaterally. GASTROINTESTINAL: Abdomen soft, no guarding or rebound, ostomy noted and air in bag. MUSCULOSKELETAL: Extremities without edema. No obvious deformities. NEUROLOGICAL: Awake, alert and oriented x4. ambulating w walker w help of family A/P Problem List: (1) Metastatic breast cancer ICD Code: C50.919 Status: Acute (2) Urethral obstruction ICD Code: N36.8 Status: Acute (3) Bowel obstruction ICD Code: K56.60 Status: Acute (4) Hypercalcemia ICD Code: E83.52 Status: Acute (5) Hypotension ICD Code: I95.9 Status: Acute (6) Bandemia ICD Code: D72.825 Status: Acute Assessment and Plan 1. Metastatic Breast CA: to [employer], Liver and Colon, s/p Radiation, plan to initiate Chemo however was hypotensive requiring IVF, Chemo on hold. Dr. Mckeon evaluated the pt and recommends continuing Decadron. pt was on a decadron taper for [employer] mets but was switched to IV Decadron in light of bowel obstruction. Dr. Mckeon also planning on getting CT chest and bone scan to evaluate for metastasis. 2. Bowel Obstruction: CT Abd/Pelvis w/ widespread metastatic disease, likely distal bowel obstruction and right ureteral obstruction. continue NPO, advance diet per surgery, IVFs/p exploratory laparomy/colostomy POD#2. H&H this morning 10.7 3. Ureteral Obstruction: As above, CT w/ right ureteral obstruction. Dr. Hawkins on board. 4. Hypercalcemia: Ca 13.0 on admission, today repeat was 10.3 s/p one dose of calcitonin. Will continue w IVF for now. s/p IV pamidronate per oncology. repeat calcium in AM 5. Hypotension: on admission, improving. BP in the low normal. IVFs 6. Bandemia: WBC 3.1, Bands 32. on admission. repeat this morning WBC 9.1 w 26 bands. U/a negative. Blood Cultures neg x 2 day, continue Cipro/Flagyl for possible intra-abdominal infection. Repeat labs in am. 7. DVT Prophylaxis: SCD/Teds. Discharge Planning d/c pending further work-up and clinical improvement Latricia Hall MD June 28, 2016 17:07
[2016-06-29] VITALS (7 sets, daily range): BP systolic 90–107; BP diastolic 57–69; PULSE 101–116; RESP 10–20; TEMP 95.5–97.7; O2SAT 93–95
[2016-06-29] MEDS: MORPHINE SULFATE 30 MG/30 ML PCA IV SCH (04:16)
[2016-06-29] MEDS: PCA - TOTAL MG MORPHINE DELIVERED PER SHIFT SCH ×3 (06:00→21:18)
[2016-06-29] MEDS: METOCLOPRAMIDE HCL 10 MG/2 ML VIAL IV PUSH SCH ×4 (06:58→23:35)
--- NOTE | 2016-06-29 07:27 | HHI.PR ---
Subjective Remarks POD#4 s/p diverting transverse colostomy pain right side, no nausea Objective Vital Signs Date Time Temp Pulse Resp B/P Pulse Ox O2 Delivery O2 Flow Rate FiO2 06/29/16 06:00 18 06/29/16 04:50 18 06/29/16 04:16 18 06/29/16 04:00 96.3 102 20 101/58 94 06/29/16 01:38 Room Air 06/29/16 00:00 96.6 101 20 104/57 95 06/28/16 22:00 18 06/28/16 20:25 102 06/28/16 20:00 96.1 103 18 104/71 94 06/28/16 16:00 95.8 101 18 103/70 98 06/28/16 12:00 96.5 102 18 107/65 92 06/28/16 08:02 98 06/28/16 08:02 Room Air 06/28/16 08:00 96.8 98 18 95/59 94 I/O 06/28/16 06/28/16 06/28/16 06/29/16 06/29/16 06/29/16 07:00 15:00 23:00 07:00 15:00 23:00 Intake Total 687 ml 641 ml 240 ml Output Total 1000 ml 2000 ml 1600 ml 1500 ml Balance -313 ml -2000 ml -959 ml -1260 ml Intake Oral 0 ml 240 ml 240 ml IV Total 687 ml 401 ml Output Urine Total 1000 ml 2000 ml 1600 ml 1500 ml # Bowel Movements 0 0 0 0 Result Diagram: 06/28/16 0624 06/28/16 0642 Objective Remarks Abdomen: soft, less distended, stoma pink flatus, scant stool in bag Assessment and Plan Assessment and Plan Clears cautiously, waiting improved bowel function Continue mobilization Suzie Ace MD June 29, 2016 07:27
[2016-06-29] MEDS: SODIUM CHLORIDE 0.9% FLUSH 10 ML FLUSH IV FLUSH SCH ×2 (08:25→21:00)
[2016-06-29] MEDS: metroNIDAZOLE 500 MG INJ 100 ML IV SCH ×3 (08:25→23:33)
[2016-06-29] MEDS: PANTOPRAZOLE SODIUM 40 MG VIAL IV PUSH SCH (08:25)
[2016-06-29] MEDS: DEXAMETHASONE SOD PHOS 4 MG/ML VIAL IV PUSH SCH (08:26)
[2016-06-29 10:07] LABS: AUTOMATED NEUTROPHIL # 12.5 TH/MM3 (1.8-7.7); BASOPHIL % 0.2 % (0.0-2.0); EOSINOPHIL % 0.2 % (0.0-4.0); HEMATOCRIT 33.9 % (35.0-46.0); LYMPH % 4.7 % (9.0-44.0); LYMPHOCYTE # 0.6 TH/MM3 (1.0-4.8); MEAN CELL VOLUME 86.1 FL (80.0-100.0); MEAN CORPUSCULAR HEMOGLOBIN 27.1 PG (27.0-34.0); MEAN CORPUSCULAR HGB CONC 31.5 % (32.0-36.0); MONO % 4.2 % (0.0-8.0); NEUT % 90.7 % (16.0-70.0); PLATELET COUNT 143 TH/MM3 (150-450); RED BLOOD COUNT 3.94 MIL/MM3 (4.00-5.30); RED CELL DISTRIBUTION WIDTH 22.2 % (11.6-17.2); WHITE BLOOD COUNT 13.8 TH/MM3 (4.0-11.0)
[2016-06-29 10:08] LABS: HEMO FLAGS AUTO DIFF
[2016-06-29 10:44] LABS: BANDS 7 % (0-6); BICARBONATE 25.1 MEQ/L (21.0-32.0); CORRECTED NUCLEATED RBC 1 /100 WBC (0-0); MYELOCYTES 5 % (0-0); NEUTROPHIL # MANUAL DIFF 12.6 TH/MM3 (1.8-7.7); POLYS (SEG NEUTROPHILS) 79 % (16-70); WBC DIFF SAMPLE 100
[2016-06-29 10:45] LABS: PLATELET ESTIMATE SMEAR NORMAL (NORMAL); PLATELET MORPHOLOGY CLUMPED (NORMAL); POTASSIUM 3.2 MEQ/L (3.5-5.1); SCAN/DIFF FINAL DIFF MANUAL; TOXIC GRANULATION 2+ (NORMAL); TOXIC VACUOLATION PRESENT (NONE SEEN)
[2016-06-29] MEDS: D5-NS + KCL 20 MEQ INJ 1,000 ML IV SCH ×2 (11:25→23:32)
[2016-06-29] MEDS: CIPROFLOXACIN 400 MG PREMIX 200 ML IV SCH ×2 (11:25→23:31)
--- NOTE | 2016-06-29 13:46 | RADRPT ---
EXAM DATE/TIME: 06/29/2016 12:54 [facility] COMPARISON: No previous studies available for comparison. INDICATIONS : Metastatic breast cancer.; evaluate for mass. RADIATION DOSE: 3.49 CTDIvol (mGy) MEDICAL HISTORY : Carcinoma, breast. SURGICAL HISTORY : Mastectomy, bilateral. ENCOUNTER: Initial ACUITY: 1 day PAIN SCALE: 0/10 LOCATION: chest TECHNIQUE: Volumetric scanning of the chest was performed. Using automated exposure control and adjustment of t he mA and/or kV according to patient size, radiation dose was kept as low as reasonably achievable to obtain optimal diagnostic quality images. FINDINGS: There are multiple bilateral palmar nodules characteristic of metastatic disease the largest measurin g 1.4 cm and the left upper lobe. Bilateral effusions are present right greater than left there is at electasis in the right base. Examination of the mediastinum demonstrates no abnormally enlarged lymph nodes by CT criteria. No axi llary or hilar abnormalities are identified. Coronary artery calcifications are present. The visualiz ed upper abdomen demonstrates multiple hypodensities in the liver characteristic of metastatic diseas e. Bone windows demonstrate bony destruction involving the T6 vertebral body characteristic of metastati c disease with possible epidural soft tissue mass. MRI is recommended for further evaluation if clini robyn indicated. [id number] is in place via right subclavian approach with its tip in the superior vena cava. CONCLUSION: 1. Findings of pulmonary hepatic and osseous metastatic disease. 2. The mass in the thoracic spine is concerning for spinal stenosis and contrast enhanced MRI is haven mmended Pasquale Mcallister MD on June 29, 2016 at 13:29 Board Certified Radiologist. This report was verified electronically.
[2016-06-29] MEDS ORDERED: POTASSIUM CHLORIDE 25 MEQ EFFERVESCENT TAB PO ONE (14:45)
--- NOTE | 2016-06-29 14:45 | HHI.PR ---
Subjective Remarks Metastatic breast cancer, bowel obstruction. Patient states that she feels very weak today. Pain is adequately controlled at this time. Just returned from bone scan, CT. Objective Vitals Vital Signs Date Time Temp Pulse Resp B/P Pulse Ox O2 Delivery O2 Flow Rate FiO2 06/29/16 11:10 95.5 115 17 101/69 95 06/29/16 08:52 106 06/29/16 07:14 96.5 106 16 96/59 93 06/29/16 06:00 18 06/29/16 04:50 18 06/29/16 04:16 18 06/29/16 04:00 96.3 102 20 101/58 94 06/29/16 01:38 Room Air 06/29/16 00:00 96.6 101 20 104/57 95 06/28/16 22:00 18 06/28/16 20:25 102 06/28/16 20:00 96.1 103 18 104/71 94 06/28/16 16:00 95.8 101 18 103/70 98 I/O 06/28/16 06/28/16 06/28/16 06/29/16 06/29/16 06/29/16 07:00 15:00 23:00 07:00 15:00 23:00 Intake Total 687 ml 641 ml 1224 ml 151 ml Output Total 1000 ml 2000 ml 1600 ml 1500 ml Balance -313 ml -2000 ml -959 ml -276 ml 151 ml Intake Oral 0 ml 240 ml 240 ml IV Total 687 ml 401 ml 984 ml 151 ml Output Urine Total 1000 ml 2000 ml 1600 ml 1500 ml # Bowel Movements 0 0 0 0 Result Diagram: 06/29/16 0937 06/29/16 0937 Imaging Last Impressions Chest CT 06/29/16 0000 Signed Impressions: Service Date/Time: Wednesday, June 29, 2016 12:54 - CONCLUSION: 1. Findings of pulmonary hepatic and osseous metastatic disease. 2. The mass in the thoracic spine is concerning for spinal stenosis and contrast enhanced MRI is recommended Pasquale Mcallister MD Abdomen/Pelvis CT 06/24/16 1545 Signed Impressions: Service Date/Time: Friday, June 24, 2016 19:30 - CONCLUSION: Widespread metastatic disease. Likely distal bowel obstruction and right ureteral obstruction. See above for complete details Alberto Mckinley MD Abdomen X-Ray 06/24/16 0000 Signed Impressions: Service Date/Time: Friday, June 24, 2016 23:44 - CONCLUSION: 1. NG tube appears to be in the mid to distal esophagus. Recommend advancing the NG tube approximately 10 cm. 2. Hydronephrosis of the right collecting system with what appears to be obstruction at the mid right ureter. 3. Nonspecific air-filled loops of small and large bowel throughout the abdomen. Kalia Rasmussen MD Objective Remarks General: Thin female in no acute distress. Heart: Regular rate and rhythm. No murmur. Lungs: Clear to auscultation bilaterally. No wheezes, rales, or rhonchi. Breathing is nonlabored. Abdomen: Soft, nontender, nondistended. Ostomy noted. Extremities: No lower extremity edema. Psych: Alert and oriented. Procedures 06/25/16 exploratory laparotomy with diverting loop transverse colostomy Urinary Catheter: Yes Assessment to: Continue Erickson insert reason: Measure Accurate Output Vascular Central Line Catheter: No A/P Problem List: (1) Metastatic breast cancer ICD Code: C50.919 Status: Acute (2) Urethral obstruction ICD Code: N36.8 Status: Acute (3) Bowel obstruction ICD Code: K56.60 Status: Acute (4) Hypercalcemia ICD Code: E83.52 Status: Acute (5) Hypotension ICD Code: I95.9 Status: Acute (6) Bandemia ICD Code: D72.825 Status: Acute Assessment and Plan 1. Metastatic breast cancer: There is evidence of metastases to the [employer], liver, colon. Status post radiation therapy. Appreciate oncology recommendations. Continue Decadron. CT of the chest shows metastatic disease. Bone scan is pending. 2. Bowel obstruction: Status post exploratory laparotomy with diverting colostomy, POD #4. Management per colorectal surgery. Still nothing by mouth. 3. Ureteral obstruction: Appreciate urology recommendations. 4. Hypercalcemia: Likely secondary to metastases. Patient given a dose of IV pamidronate by oncology. 5. Bandemia: Improving. Blood cultures are negative so far. Continue antibiotics for possible intra-abdominal infection. 6. DVT prophylaxis: SCDs, STEPH hose. 7. Hypotension on admission: Improving. Continue IV fluids. 8. Hypokalemia: Supplement potassium. Eddie Posada MD June 29, 2016 14:45
--- NOTE | 2016-06-29 15:08 | RADRPT ---
EXAM DATE/TIME: 06/29/2016 12:54 [facility] COMPARISON: CT THORAX W/O CONTRAST, June 29, 2016, 12:54. PRIOR BONE SCANS: No correlative bone scan available for comparison. INDICATIONS : Breast cancer. Metastatic disease. Nausea and vomiting for one week. DOSE: 30.0 mCi Tc99m MDP IV MEDICAL HISTORY : Carcinoma, breast. SURGICAL HISTORY : Mastectomy, bilateral. ENCOUNTER: Initial ACUITY: 1 week PAIN SCALE: 0/10 LOCATION: upper quadrant TECHNIQUE: Three hours post intravenous administration of radiotracer, whole body bone scan imaging was performe d. FINDINGS: Blood pool images demonstrate a homogeneous pattern of uptake in the soft tissues. No hyperemic area s are identified. Planar bone scan demonstrates a normal pattern of uptake. No focal areas of incre ased or decreased uptake are seen. There is a focal are of increased activity overlying upper right chest presumably, this is residual t racer which was administered through the patient's [id number]. No bony lesion is seen within this area on the CT dated 06/29/16 CONCLUSION: 1. No definite findings to indicate metastatic disease to bone are identified. 2. The area of increased uptake in the right chest is the residual tracer within the patient's port. Joaquin Guzman MD on June 29, 2016 at 15:04 Board Certified Radiologist. This report was verified electronically.
[2016-06-29] MEDS ORDERED: POTASSIUM CHLORIDE 10 MEQ CONTROLLED RELEASE TAB PO ONE (16:00)
--- NOTE | 2016-06-29 17:35 | PD.ONC.PN ---
Subjective Subjective Remarks Afebrile overnight. Pt resting in bed with sister at bedside. Her pain is the same, she has been trying to use less of her JIG HAND pump. Worn out from therapy and imaging today. Objective Data Date Time Temp Pulse Resp B/P Pulse Ox O2 Delivery O2 Flow Rate FiO2 06/29/16 14:00 16 06/29/16 11:10 95.5 115 17 101/69 95 06/29/16 08:52 106 06/29/16 07:14 96.5 106 16 96/59 93 06/29/16 06:00 18 06/29/16 04:50 18 06/29/16 04:16 18 06/29/16 04:00 96.3 102 20 101/58 94 06/29/16 01:38 Room Air 06/29/16 00:00 96.6 101 20 104/57 95 06/28/16 22:00 18 06/28/16 20:25 102 06/28/16 20:00 96.1 103 18 104/71 94 06/29/16 06/29/16 06/29/16 07:00 15:00 23:00 Intake Total 1224 ml 151 ml 663 ml Output Total 1500 ml Balance -276 ml 151 ml 663 ml Result Diagram: 06/29/1637 06/29/16 0937 Laboratory Results Laboratory Tests Test 06/29/16 09:37 White Blood Count 13.8 TH/MM3 Red Blood Count 3.94 MIL/MM3 Hemoglobin 10.7 GM/DL Hematocrit 33.9 % Mean Corpuscular Volume 86.1 FL Mean Corpuscular Hemoglobin 27.1 PG Mean Corpuscular Hemoglobin 31.5 % Concent Red Cell Distribution Width 22.2 % Platelet Count 143 TH/MM3 Mean Platelet Volume 6.9 FL Neutrophils (%) (Auto) 90.7 % Lymphocytes (%) (Auto) 4.7 % Monocytes (%) (Auto) 4.2 % Eosinophils (%) (Auto) 0.2 % Basophils (%) (Auto) 0.2 % Neutrophils # (Auto) 12.5 TH/MM3 Lymphocytes # (Auto) 0.6 TH/MM3 Monocytes # (Auto) 0.6 TH/MM3 Eosinophils # (Auto) 0.0 TH/MM3 Basophils # (Auto) 0.0 TH/MM3 CBC Comment AUTO DIFF Differential Total Cells 100 Counted Neutrophils % (Manual) 79 % Band Neutrophils % 7 % Lymphocytes % 6 % Monocytes % 3 % Neutrophils # (Manual) 12.6 TH/MM3 Myelocytes 5 % Nucleated Red Blood Cells 1 /100 WBC Differential Comment FINAL DIFF MANUAL Toxic Granulation 2+ Toxic Vacuolation PRESENT Platelet Estimate NORMAL Platelet Morphology Comment CLUMPED Sodium Level 136 MEQ/L Potassium Level 3.2 MEQ/L Chloride Level 106 MEQ/L Carbon Dioxide Level 25.1 MEQ/L Anion Gap 5 MEQ/L Blood Urea Nitrogen 4 MG/DL Creatinine 0.16 MG/DL Estimat Glomerular Filtration 475 ML/MIN Rate Random Glucose 96 MG/DL Calcium Level 10.3 MG/DL Imaging Studies Last [address] 06/29/16 0000 Signed Impressions: Service Date/Time: Wednesday, June 29, 2016 12:54 - CONCLUSION: 1. Findings of pulmonary hepatic and osseous metastatic disease. 2. The mass in the thoracic spine is concerning for spinal stenosis and contrast enhanced MRI is recommended Pasquale Mcallister MD Bone Scan Nuclear Medicine 06/29/16 0000 Signed Impressions: Service Date/Time: Wednesday, June 29, 2016 12:54 - CONCLUSION: 1. No definite findings to indicate metastatic disease to bone are identified. 2. The area of increased uptake in the right chest is the residual tracer within the patient' s port. Joaquin Guzman MD Administered Medications Medications (Trade) Dose Ordered Sig/Nico Route PRN Reason Start Time Stop Time Status Last Admin Dose Admin Sodium Chloride (NS Flush) 2 ml BID IV FLUSH 06/24/16 21:00 06/29/16 08:25 Morphine Sulfate (Morphine Inj) 2 mg Q3H PRN IV Pain 3-5 06/24/16 21:00 06/24/16 21:37 Morphine Sulfate (Morphine Inj) 4 mg Q3H PRN IV Pain 6-10 06/24/16 21:00 06/25/16 00:11 Dexamethasone Sodium Phosphate 4 mg 4 mg DAILY IV PUSH 06/25/16 09:00 06/29/16 08:26 Ciprofloxacin/ Dextrose 200 ml @ 200 mls/hr Q12H IV 06/24/16 23:00 06/29/16 11:25 Metronidazole (Flagyl 500 Mg Inj) 100 ml @ 100 mls/hr Q8H IV 06/25/16 00:00 06/29/16 15:27 Metoclopramide HCl (Reglan Inj) 10 mg Q6HR IV PUSH 06/25/16 18:00 06/29/16 16:54 Pantoprazole Sodium (Protonix Inj) 40 mg DAILY IV PUSH 06/26/16 09:00 06/29/16 08:25 Morphine Sulfate (Morphine 1 Mg/ ml JIG HAND) 30 mg UNSCH IV 06/25/16 15:00 06/29/16 04:16 JIG HAND Dosage Infused (Pha) 1 1 Q8HR .XX 06/25/16 22:00 06/29/16 14:00 Potassium Chloride/Dextrose/ Sod Cl (D5-NS + KCl 20 Meq Inj) 1,000 ml @ 100 mls/hr Q10H IV 06/28/16 15:00 06/29/16 11:25 Objective Remarks GENERAL: Chronically ill appearing older female resting in bed in no distress. SKIN: Warm and dry. HEAD: Normocephalic. +Alopecia EYES: No injection or drainage. NECK: Supple, trachea midline. CARDIOVASCULAR: Regular rate and rhythm without murmurs. RESPIRATORY: Breath sounds equal bilaterally. No accessory muscle use. GASTROINTESTINAL: Abdomen protuberant, Mildly tender to lower quadrants. EXTREMITIES: No cyanosis NEUROLOGICAL: No obvious focal deficit. Awake, alert, and oriented x3. Assessment/Plan Problem List: (1) Metastatic breast cancer Status: Acute Plan: -- Original diagnosis she was found to be triple positive. -- Bone scan on 06/29 showed wilfred, however CT chest showed a metastatic lesion in her lung, liver and in the area of T6. Assessment 56 y/o female with history of metastatic breast cancer admitted with constipation Plan 1. Discussed results of recent imaging with pt and her sister. 2. Will plan to continue chemotherapy as an outpatient. Pt states she is determined to "beat this." 3. Continue with PT, strengthening regimen as her performance status will need to improve prior to any further chemotherapy. Attending Statement The exam, history, and the medical decision-making described in the above note were completed with the assistance of the mid-level provider. I reviewed and agree with the findings presented. I attest that I had a [id number] encounter with the patient on the same day, and personally performed and documented my assessment and findings in the medical record. Feeling better. Able to ambulate around the [address] way. Will get bone scan and CT chest. Continue supportive care. Ca stable. Zuleyma Cottrell June 29, 2016 17:35 Saul Mckeon MD June 29, 2016 19:33
[2016-06-30 00:30] VITALS: BP 95/69; PULSE 110; RESP 16; TEMP 97.9; O2SAT 96
[2016-06-30 04:40] VITALS: BP 97/58; PULSE 109; RESP 16; TEMP 97.8; O2SAT 96
[2016-06-30] MEDS: PCA - TOTAL MG MORPHINE DELIVERED PER SHIFT SCH ×3 (06:00→22:00)
[2016-06-30] MEDS: METOCLOPRAMIDE HCL 10 MG/2 ML VIAL IV PUSH SCH ×3 (06:13→17:11)
[2016-06-30] MEDS: D5-NS + KCL 20 MEQ INJ 1,000 ML IV SCH (07:00)
[2016-06-30 07:30] VITALS: BP 90/52; PULSE 111; RESP 16; TEMP 96.6; O2SAT 95
[2016-06-30 07:46] LABS: AUTOMATED NEUTROPHIL # 9.6 TH/MM3 (1.8-7.7); BASOPHIL % 0.1 % (0.0-2.0); EOSINOPHIL % 0.2 % (0.0-4.0); HEMATOCRIT 31.6 % (35.0-46.0); LYMPHOCYTE # 0.8 TH/MM3 (1.0-4.8); MEAN CELL VOLUME 85.9 FL (80.0-100.0); MEAN CORPUSCULAR HEMOGLOBIN 28.1 PG (27.0-34.0); MEAN CORPUSCULAR HGB CONC 32.8 % (32.0-36.0); MONO % 7.1 % (0.0-8.0); NEUT % 85.6 % (16.0-70.0); PLATELET COUNT 174 TH/MM3 (150-450); RED BLOOD COUNT 3.68 MIL/MM3 (4.00-5.30); RED CELL DISTRIBUTION WIDTH 22.2 % (11.6-17.2); WHITE BLOOD COUNT 11.2 TH/MM3 (4.0-11.0)
[2016-06-30 07:49] LABS: HEMO FLAGS AUTO DIFF
[2016-06-30 07:56] LABS: BICARBONATE 23.5 MEQ/L (21.0-32.0); POTASSIUM 3.5 MEQ/L (3.5-5.1)
[2016-06-30] MEDS: metroNIDAZOLE 500 MG INJ 100 ML IV SCH ×2 (08:16→17:10)
[2016-06-30] MEDS: PANTOPRAZOLE SODIUM 40 MG VIAL IV PUSH SCH (08:16)
[2016-06-30] MEDS: DEXAMETHASONE SOD PHOS 4 MG/ML VIAL IV PUSH SCH (08:17)
[2016-06-30 08:48] LABS: BANDS 9 % (0-6); METAMYELOCYTES 1 % (0-1); PLATELET ESTIMATE SMEAR NORMAL (NORMAL); PLATELET MORPHOLOGY NORMAL (NORMAL); POLYS (SEG NEUTROPHILS) 79 % (16-70); SCAN/DIFF FINAL DIFF MANUAL; WBC DIFF SAMPLE 100
[2016-06-30] MEDS: SODIUM CHLORIDE 0.9% FLUSH 10 ML FLUSH IV FLUSH SCH ×2 (09:00→21:00)
--- NOTE | 2016-06-30 10:25 | HHI.PR ---
Subjective Remarks Metastatic breast cancer, bowel obstruction. Patient reports significant abdominal pain overnight. Somewhat better this morning. She believes that the morphine may be upsetting her stomach. She wants to know when she can start trying to eat again. Objective Vitals Vital Signs Date Time Temp Pulse Resp B/P Pulse Ox O2 Delivery O2 Flow Rate FiO2 06/30/16 07:30 96.6 111 16 90/52 95 06/30/16 06:00 18 06/30/16 04:40 97.8 109 16 97/58 96 06/30/16 00:30 97.9 110 16 95/69 96 06/29/16 21:18 20 06/29/16 20:30 97.7 115 16 107/66 95 06/29/16 15:30 96.8 116 10 90/61 94 06/29/16 14:00 16 06/29/16 11:10 95.5 115 17 101/69 95 I/O 06/29/16 06/29/16 06/29/16 06/30/16 06/30/16 06/30/16 06:59 14:59 22:59 06:59 14:59 22:59 Intake Total 1224 ml 631 ml 1242 ml 1019 ml Output Total 1500 ml 900 ml 2300 ml 1100 ml Balance -276 ml -269 ml -1058 ml -81 ml Intake Oral 240 ml 480 ml 0 ml 60 ml IV Total 984 ml 151 ml 1242 ml 959 ml Output Urine Total 1500 ml 900 ml 2300 ml 1100 ml Stool Total 0 ml # Voids 0 # Bowel Movements 0 0 0 Result Diagram: 06/30/16 0648 06/30/16 0648 Imaging Last Impressions Chest CT 06/29/16 0000 Signed Impressions: Service Date/Time: Wednesday, June 29, 2016 12:54 - CONCLUSION: 1. Findings of pulmonary hepatic and osseous metastatic disease. 2. The mass in the thoracic spine is concerning for spinal stenosis and contrast enhanced MRI is recommended Pasquale Mcallister MD Bone Scan Nuclear Medicine 06/29/16 0000 Signed Impressions: Service Date/Time: Wednesday, June 29, 2016 12:54 - CONCLUSION: 1. No definite findings to indicate metastatic disease to bone are identified. 2. The area of increased uptake in the right chest is the residual tracer within the patient' s port. Joaquin Guzman MD Abdomen/Pelvis CT 06/24/16 1545 Signed Impressions: Service Date/Time: Friday, June 24, 2016 19:30 - CONCLUSION: Widespread metastatic disease. Likely distal bowel obstruction and right ureteral obstruction. See above for complete details Alberto Mckinley MD Abdomen X-Ray 06/24/16 0000 Signed Impressions: Service Date/Time: Friday, June 24, 2016 23:44 - CONCLUSION: 1. NG tube appears to be in the mid to distal esophagus. Recommend advancing the NG tube approximately 10 cm. 2. Hydronephrosis of the right collecting system with what appears to be obstruction at the mid right ureter. 3. Nonspecific air-filled loops of small and large bowel throughout the abdomen. Kalia Rasmussen MD Objective Remarks General: Thin female in no acute distress. Heart: Regular rate and rhythm. No murmur. Lungs: Clear to auscultation bilaterally. No wheezes, rales, or rhonchi. Breathing is nonlabored. Abdomen: Soft, nontender, nondistended. Ostomy noted. Extremities: No lower extremity edema. Psych: Alert and oriented. Procedures 06/25/16 exploratory laparotomy with diverting loop transverse colostomy Urinary Catheter: No Vascular Central Line Catheter: No A/P Problem List: (1) Metastatic breast cancer ICD Code: C50.919 Status: Acute (2) Urethral obstruction ICD Code: N36.8 Status: Acute (3) Bowel obstruction ICD Code: K56.60 Status: Acute (4) Hypercalcemia ICD Code: E83.52 Status: Acute (5) Hypotension ICD Code: I95.9 Status: Acute (6) Bandemia ICD Code: D72.825 Status: Acute Assessment and Plan 1. Metastatic breast cancer: There is evidence of metastases to the [employer], liver, colon. Status post radiation therapy. Appreciate oncology recommendations. Continue Decadron. CT of the chest shows metastatic disease. Bone scan report noted. MRI of the thoracic spine ordered by oncology. Radiation oncology consult requested as well. 2. Bowel obstruction: Status post exploratory laparotomy with diverting colostomy, POD #5. Management per colorectal surgery. Still nothing by mouth. 3. Ureteral obstruction: Appreciate urology recommendations. 4. Hypercalcemia: Likely secondary to metastases. Patient given a dose of IV pamidronate by oncology. 5. Bandemia: Improving. Blood cultures are negative so far. Continue antibiotics for possible intra-abdominal infection. 6. DVT prophylaxis: RAYsSTEPH. 7. Hypotension on admission: Improving. Continue IV fluids. 8. Hypokalemia: Improved. Continue potassium supplementation and IV fluids. Eddie Posada MD June 30, 2016 10:25
--- NOTE | 2016-06-30 10:37 | PD.ONC.PN ---
Subjective Subjective Remarks Afebrile overnight. Patient complaining of back pain. She has not wanted to use her pain pump because she has not eaten in a few days. Objective Data Date Time Temp Pulse Resp B/P Pulse Ox O2 Delivery O2 Flow Rate FiO2 06/30/16 07:30 96.6 111 16 90/52 95 06/30/16 06:00 18 06/30/16 04:40 97.8 109 16 97/58 96 06/30/16 00:30 97.9 110 16 95/69 96 06/29/16 21:18 20 06/29/16 20:30 97.7 115 16 107/66 95 06/29/16 15:30 96.8 116 10 90/61 94 06/29/16 14:00 16 06/29/16 11:10 95.5 115 17 101/69 95 06/30/16 06/30/16 06/30/16 07:00 15:00 23:00 Intake Total 1019 ml Output Total 1100 ml Balance -81 ml Result Diagram: 06/30/1648 06/30/16 0648 Laboratory Results Laboratory Tests Test 06/30/16 06:48 White Blood Count 11.2 TH/MM3 Red Blood Count 3.68 MIL/MM3 Hemoglobin 10.4 GM/DL Hematocrit 31.6 % Mean Corpuscular Volume 85.9 FL Mean Corpuscular Hemoglobin 28.1 PG Mean Corpuscular Hemoglobin 32.8 % Concent Red Cell Distribution Width 22.2 % Platelet Count 174 TH/MM3 Mean Platelet Volume 6.8 FL Neutrophils (%) (Auto) 85.6 % Lymphocytes (%) (Auto) 7.0 % Monocytes (%) (Auto) 7.1 % Eosinophils (%) (Auto) 0.2 % Basophils (%) (Auto) 0.1 % Neutrophils # (Auto) 9.6 TH/MM3 Lymphocytes # (Auto) 0.8 TH/MM3 Monocytes # (Auto) 0.8 TH/MM3 Eosinophils # (Auto) 0.0 TH/MM3 Basophils # (Auto) 0.0 TH/MM3 CBC Comment AUTO DIFF Differential Total Cells 100 Counted Neutrophils % (Manual) 79 % Band Neutrophils % 9 % Lymphocytes % 7 % Monocytes % 4 % Neutrophils # (Manual) 10.0 TH/MM3 Metamyelocytes 1 % Differential Comment FINAL DIFF MANUAL Platelet Estimate NORMAL Platelet Morphology Comment NORMAL Sodium Level 138 MEQ/L Potassium Level 3.5 MEQ/L Chloride Level 107 MEQ/L Carbon Dioxide Level 23.5 MEQ/L Anion Gap 8 MEQ/L Blood Urea Nitrogen 4 MG/DL Creatinine 0.19 MG/DL Estimat Glomerular Filtration 390 ML/MIN Rate Random Glucose 108 MG/DL Calcium Level 10.7 MG/DL Administered Medications Medications (Trade) Dose Ordered Sig/Nico Route PRN Reason Start Time Stop Time Status Last Admin Dose Admin Sodium Chloride (NS Flush) 2 ml BID IV FLUSH 06/24/16 21:00 06/29/16 08:25 Morphine Sulfate (Morphine Inj) 2 mg Q3H PRN IV Pain 3-5 06/24/16 21:00 06/24/16 21:37 Morphine Sulfate (Morphine Inj) 4 mg Q3H PRN IV Pain 6-10 06/24/16 21:00 06/25/16 00:11 Dexamethasone Sodium Phosphate 4 mg 4 mg DAILY IV PUSH 06/25/16 09:00 06/30/16 08:17 Ciprofloxacin/ Dextrose 200 ml @ 200 mls/hr Q12H IV 06/24/16 23:00 06/29/16 23:31 Metronidazole (Flagyl 500 Mg Inj) 100 ml @ 100 mls/hr Q8H IV 06/25/16 00:00 06/30/16 08:16 Metoclopramide HCl (Reglan Inj) 10 mg Q6HR IV PUSH 06/25/16 18:00 06/30/16 06:13 Pantoprazole Sodium (Protonix Inj) 40 mg DAILY IV PUSH 06/26/16 09:00 06/30/16 08:16 Morphine Sulfate (Morphine 1 Mg/ ml AREA CAPTAIN) 30 mg UNSCH IV 06/25/16 15:00 06/29/16 04:16 AREA CAPTAIN Dosage Infused (Pha) 1 1 Q8HR .XX 06/25/16 22:00 06/30/16 06:00 Potassium Chloride/Dextrose/ Sod Cl (D5-NS + KCl 20 Meq Inj) 1,000 ml @ 100 mls/hr Q10H IV 06/28/16 15:00 06/29/16 23:32 Objective Remarks GENERAL: Thin female, lying supine in bed in nad. SKIN: Warm and dry. HEAD: Normocephalic. EYES: No injection or drainage. NECK: Supple, trachea midline. CARDIOVASCULAR: Regular rate and rhythm RESPIRATORY: anterior jama clear GASTROINTESTINAL: Abdomen soft, non-tender, nondistended. EXTREMITIES: No cyanosis NEUROLOGICAL: awake and alert, normal speech Assessment/Plan Problem List: (1) Metastatic breast cancer Status: Acute Plan: -- Original diagnosis she was found to be triple positive. -- Bone scan on 06/29 showed wilfred, however CT chest showed a metastatic lesion in her lung, liver and in the area of T6. Assessment 56 y/o female with history of metastatic breast cancer admitted with constipation Plan 1. MRI T-spine for further characterization of T6 2. consult radiation oncology for possible radiation to T6] 3. supportive care Attending Statement The exam, history, and the medical decision-making described in the above note were completed with the assistance of the mid-level provider. I reviewed and agree with the findings presented. I attest that I had a [id number] encounter with the patient on the same day, and personally performed and documented my assessment and findings in the medical record. Has back pain. Reviewed CT with pt and her sister. There is a T6 lesion with possible stenosis and epidural invasion. The lung and liver masses seems bigger compare to prior study. Will get MRI of T spine and consult rad onc as she is going to need palliative XRT to the spine. Bone sacn did not show any uptake. Magda Low June 30, 2016 10:36 Saul Mckeon MD June 30, 2016 16:54
[2016-06-30 11:24] VITALS: BP 97/66; PULSE 110; RESP 16; TEMP 96.1; O2SAT 97
[2016-06-30] MEDS: CIPROFLOXACIN 400 MG PREMIX 200 ML IV SCH ×2 (12:45→22:57)
[2016-06-30] MEDS ORDERED: GADODIAMIDE PF 287 MG/ML 10 ML VIAL (for RAD MRI) IV ONE (13:51)
--- NOTE | 2016-06-30 14:35 | RADRPT ---
EXAM DATE/TIME: 06/30/2016 13:29 [facility] COMPARISON: No previous studies available for comparison. INDICATIONS : Metastatic disease. Abnormal CT. CONTRAST: 9 cc Omniscan (gadodiamide) IV MEDICAL HISTORY : Carcinoma, breast. SURGICAL HISTORY : Mastectomy, bilateral. Adrenal glad removal, right breast implant. ENCOUNTER: Subsequent ACUITY: > 1 year PAIN SCORE: 4/10 LOCATION: Back. TECHNIQUE: Multiplanar multisequence MRI of the thoracic spine was performed. FINDINGS: Sagittal images demonstrate normal vertebral body alignment and curvature. No focal area of marrow re placement are identified. The cord itself is normal in caliber and signal intensity. The conus termin ates normally. Axial images were performed from T1-T2 through T12-L1. There is abnormal signal in the T6 vertebral body characteristic of metastatic disease. T1-T2: No significant abnormalities identified. T2-T3: No significant abnormalities identified. T3-T4: No significant abnormalities identified. T4-T5: No significant abnormalities identified. T5-T6: There is bony destruction of the left lateral aspect of the vertebral body as well as extension of pe dicle with epidural soft tissue tumor extending into the posterior elements on the left. There is no significant spinal canal stenosis. The neural foramina are clear bilaterally. T6-T7: No significant abnormalities identified. T7-T8: No significant abnormalities identified. T8-T9: No significant abnormalities identified. T9-T10: No significant abnormalities identified. T10-T11: No significant abnormalities identified. T11-T12: No significant abnormalities identified. T12-L1: No significant abnormalities identified. CONCLUSION: 1. Osseous metastatic disease to T6 vertebral body extending into the pedicle and posterior elements on the left. There is minimal epidural soft tissue component but no significant stenosis Pasquale Mcallister MD on June 30, 2016 at 14:30 Board Certified Radiologist. This report was verified electronically.
[2016-06-30 15:33] VITALS: BP 99/63; PULSE 113; RESP 16; TEMP 97.3; O2SAT 95
[2016-06-30 20:25] VITALS: BP 105/67; PULSE 108; RESP 16; TEMP 96.8; O2SAT 96
[2016-07-01 00:40] VITALS: BP 103/69; PULSE 100; RESP 16; TEMP 97.4; O2SAT 95
[2016-07-01] MEDS: metroNIDAZOLE 500 MG INJ 100 ML IV SCH ×4 (00:48→23:59)
[2016-07-01] MEDS: METOCLOPRAMIDE HCL 10 MG/2 ML VIAL IV PUSH SCH ×5 (00:49→23:59)
[2016-07-01 04:35] VITALS: BP 101/55; PULSE 105; RESP 16; TEMP 97.2; O2SAT 95
[2016-07-01] MEDS: PCA - TOTAL MG MORPHINE DELIVERED PER SHIFT SCH ×3 (06:00→22:03)
[2016-07-01 07:23] LABS: AUTOMATED NEUTROPHIL # 10.8 TH/MM3 (1.8-7.7); BASOPHIL % 0.2 % (0.0-2.0); EOSINOPHIL # 0.2 TH/MM3 (0-0.4); EOSINOPHIL % 1.4 % (0.0-4.0); HEMATOCRIT 34.2 % (35.0-46.0); LYMPH % 7.2 % (9.0-44.0); LYMPHOCYTE # 0.9 TH/MM3 (1.0-4.8); MEAN CELL VOLUME 86.2 FL (80.0-100.0); MEAN CORPUSCULAR HGB CONC 32.5 % (32.0-36.0); MONO % 4.1 % (0.0-8.0); NEUT % 87.1 % (16.0-70.0); PLATELET COUNT 183 TH/MM3 (150-450); RED BLOOD COUNT 3.96 MIL/MM3 (4.00-5.30); RED CELL DISTRIBUTION WIDTH 22.3 % (11.6-17.2); WHITE BLOOD COUNT 12.4 TH/MM3 (4.0-11.0)
[2016-07-01 07:26] LABS: HEMO FLAGS AUTO DIFF
[2016-07-01 07:42] LABS: BICARBONATE 22.7 MEQ/L (21.0-32.0); MAGNESIUM 1.5 MG/DL (1.5-2.5); POTASSIUM 3.5 MEQ/L (3.5-5.1)
[2016-07-01 07:56] VITALS: BP 87/63; PULSE 108; RESP 16; TEMP 96.9; O2SAT 96
[2016-07-01 08:08] LABS: BANDS 9 % (0-6); EOSINOPHILS 1 % (0-4); METAMYELOCYTES 5 % (0-1); MYELOCYTES 4 % (0-0); NEUTROPHIL # MANUAL DIFF 10.5 TH/MM3 (1.8-7.7); POLYS (SEG NEUTROPHILS) 67 % (16-70); TOXIC GRANULATION 1+ (NORMAL); TOXIC VACUOLATION PRESENT (NONE SEEN); WBC DIFF SAMPLE 100
[2016-07-01 08:13] LABS: SCAN/DIFF FINAL DIFF MANUAL
[2016-07-01] MEDS: D5-NS + KCL 20 MEQ INJ 1,000 ML IV SCH (08:33)
[2016-07-01] MEDS: DEXAMETHASONE SOD PHOS 4 MG/ML VIAL IV PUSH SCH (08:34)
[2016-07-01] MEDS: PANTOPRAZOLE SODIUM 40 MG VIAL IV PUSH SCH (08:34)
[2016-07-01] MEDS: SODIUM CHLORIDE 0.9% FLUSH 10 ML FLUSH IV FLUSH SCH ×2 (08:34→19:53)
--- NOTE | 2016-07-01 11:01 | PD.ONC.PN ---
Subjective Subjective Remarks Afebrile overnight. "I still have pain in my back." She saw the radiation oncologist yesterday and is eager to start radiation when possible. Objective Data Date Time Temp Pulse Resp B/P Pulse Ox O2 Delivery O2 Flow Rate FiO2 07/01/16 07:56 96.9 108 16 87/63 96 07/01/16 06:00 18 07/01/16 04:35 97.2 105 16 101/55 95 07/01/16 00:40 97.4 100 16 103/69 95 06/30/16 22:00 18 06/30/16 20:25 96.8 108 16 105/67 96 06/30/16 15:33 97.3 113 16 99/63 95 06/30/16 14:00 16 06/30/16 11:24 96.1 110 16 97/66 97 07/01/16 07/01/16 07/01/16 07:00 15:00 23:00 Intake Total 240 ml Output Total 1300 ml Balance -1060 ml Result Diagram: 07/01/1662607/01/16626 Laboratory Results Laboratory Tests Test 07/01/16 06:27 White Blood Count 12.4 TH/MM3 Red Blood Count 3.96 MIL/MM3 Hemoglobin 11.1 GM/DL Hematocrit 34.2 % Mean Corpuscular Volume 86.2 FL Mean Corpuscular Hemoglobin 28.0 PG Mean Corpuscular Hemoglobin 32.5 % Concent Red Cell Distribution Width 22.3 % Platelet Count 183 TH/MM3 Mean Platelet Volume 7.1 FL Neutrophils (%) (Auto) 87.1 % Lymphocytes (%) (Auto) 7.2 % Monocytes (%) (Auto) 4.1 % Eosinophils (%) (Auto) 1.4 % Basophils (%) (Auto) 0.2 % Neutrophils # (Auto) 10.8 TH/MM3 Lymphocytes # (Auto) 0.9 TH/MM3 Monocytes # (Auto) 0.5 TH/MM3 Eosinophils # (Auto) 0.2 TH/MM3 Basophils # (Auto) 0.0 TH/MM3 CBC Comment AUTO DIFF Differential Total Cells 100 Counted Neutrophils % (Manual) 67 % Band Neutrophils % 9 % Lymphocytes % 8 % Monocytes % 6 % Eosinophils % 1 % Neutrophils # (Manual) 10.5 TH/MM3 Metamyelocytes 5 % Myelocytes 4 % Differential Comment FINAL DIFF MANUAL Atypical Lymphocytes % Toxic Granulation 1+ Toxic Vacuolation PRESENT Sodium Level 136 MEQ/L Potassium Level 3.5 MEQ/L Chloride Level 104 MEQ/L Carbon Dioxide Level 22.7 MEQ/L Anion Gap 9 MEQ/L Blood Urea Nitrogen 5 MG/DL Creatinine 0.18 MG/DL Estimat Glomerular Filtration 415 ML/MIN Rate Random Glucose 92 MG/DL Calcium Level 11.3 MG/DL Magnesium Level 1.5 MG/DL Administered Medications Medications (Trade) Dose Ordered Sig/Nico Route PRN Reason Start Time Stop Time Status Last Admin Dose Admin Sodium Chloride (NS Flush) 2 ml BID IV FLUSH 06/24/16 21:00 07/01/16 08:34 Morphine Sulfate (Morphine Inj) 2 mg Q3H PRN IV Pain 3-5 06/24/16 21:00 06/24/16 21:37 Morphine Sulfate (Morphine Inj) 4 mg Q3H PRN IV Pain 6-10 06/24/16 21:00 06/25/16 00:11 Dexamethasone Sodium Phosphate 4 mg 4 mg DAILY IV PUSH 06/25/16 09:00 07/01/16 08:34 Ciprofloxacin/ Dextrose 200 ml @ 200 mls/hr Q12H IV 06/24/16 23:00 06/30/16 22:57 Metronidazole (Flagyl 500 Mg Inj) 100 ml @ 100 mls/hr Q8H IV 06/25/16 00:00 07/01/16 08:33 Metoclopramide HCl (Reglan Inj) 10 mg Q6HR IV PUSH 06/25/16 18:00 07/01/16 06:05 Pantoprazole Sodium (Protonix Inj) 40 mg DAILY IV PUSH 06/26/16 09:00 07/01/16 08:34 Morphine Sulfate (Morphine 1 Mg/ ml MOVIE STAR) 30 mg UNSCH IV 06/25/16 15:00 06/29/16 04:16 MOVIE STAR Dosage Infused (Pha) 1 1 Q8HR .XX 06/25/16 22:00 07/01/16 06:00 Potassium Chloride/Dextrose/ Sod Cl (D5-NS + KCl 20 Meq Inj) 1,000 ml @ 50 mls/hr Q20H IV 06/28/16 15:00 07/01/16 08:33 Objective Remarks GENERAL: chronically ill appearing female, supine in bed in nad. SKIN: Warm and dry. HEAD: Normocephalic. EYES: No injection or drainage. NECK: Supple, trachea midline. CARDIOVASCULAR: Regular rate and rhythm RESPIRATORY: anterior jama clear GASTROINTESTINAL: Abdomen soft, non-tender, nondistended. EXTREMITIES: No cyanosis NEUROLOGICAL: awake and alert, normal speech Assessment/Plan Problem List: (1) Metastatic breast cancer Status: Acute Plan: -- Original diagnosis she was found to be triple positive. -- Bone scan on 06/29 showed wilfred, however CT chest showed a metastatic lesion in her lung, liver and in the area of T6. Assessment 56 y/o female with history of metastatic breast cancer admitted with constipation Plan 1. continue supportive care, pain management 2. radiation oncology to set up simulation 3. d/c per primary and surgery Attending Statement The exam, history, and the medical decision-making described in the above note were completed with the assistance of the mid-level provider. I reviewed and agree with the findings presented. I attest that I had a [id number] encounter with the patient on the same day, and personally performed and documented my assessment and findings in the medical record. Feeling better. Back pain is stable. Reviewed MRi with pt and her sister. Plan to give her palliative XRT to T-spine. Once she is stronger, can resume palliative chemotx. Discussed with . Can be d/c once clear by surgery. Magda Low July 01, 2016 11:01 Saul Mckeon MD July 01, 2016 19:10
[2016-07-01 12:03] VITALS: BP 98/62; PULSE 110; RESP 16; TEMP 96.4; O2SAT 94
[2016-07-01] MEDS: CIPROFLOXACIN 400 MG PREMIX 200 ML IV SCH ×2 (12:36→22:03)
[2016-07-01] MEDS: MORPHINE SULFATE 4 MG/ML INJ IV PRN (14:07)
--- NOTE | 2016-07-01 14:21 | HHI.PR ---
Subjective Remarks Metastatic breast cancer, bowel obstruction. Patient complaining of back pain. Going for radiation therapy this afternoon. Objective Vitals Vital Signs Date Time Temp Pulse Resp B/P Pulse Ox O2 Delivery O2 Flow Rate FiO2 07/01/16 12:03 96.4 110 16 98/62 94 07/01/16 07:56 96.9 108 16 87/63 96 07/01/16 06:00 18 07/01/16 04:35 97.2 105 16 101/55 95 07/01/16 00:40 97.4 100 16 103/69 95 06/30/16 22:00 18 06/30/16 20:25 96.8 108 16 105/67 96 06/30/16 15:33 97.3 113 16 99/63 95 I/O 06/30/16 06/30/16 06/30/16 07/01/16 07/01/16 07/01/16 07:00 15:00 23:00 07:00 15:00 23:00 Intake Total 1019 ml 240 ml 680 ml 240 ml Output Total 1100 ml 900 ml 1500 ml 1300 ml Balance -81 ml -660 ml -820 ml -1060 ml Intake Oral 60 ml 240 ml 240 ml 240 ml IV Total 959 ml 440 ml Output Urine Total 1100 ml 900 ml 1500 ml 1300 ml Stool Total 0 ml # Voids 0 # Bowel Movements 0 0 0 Result Diagram: 07/01/16 0627 07/01/1627 Imaging Last Impressions Thoracic Spine MRI 06/30/16 0000 Signed Impressions: Service Date/Time: June 13:29 - CONCLUSION: 1. Osseous metastatic disease to T6 vertebral body extending into the pedicle and posterior elements on the left. There is minimal epidural soft tissue component but no significant stenosis Pasquale Mcallister MD Chest CT 06/29/16 0000 Signed Impressions: Service Date/Time: Wednesday, June 29, 2016 12:54 - CONCLUSION: 1. Findings of pulmonary hepatic and osseous metastatic disease. 2. The mass in the thoracic spine is concerning for spinal stenosis and contrast enhanced MRI is recommended Pasquale Mcallister MD Bone Scan Nuclear Medicine 06/29/16 0000 Signed Impressions: Service Date/Time: Wednesday, June 29, 2016 12:54 - CONCLUSION: 1. No definite findings to indicate metastatic disease to bone are identified. 2. The area of increased uptake in the right chest is the residual tracer within the patient' s port. Joaquin Guzman MD Abdomen/Pelvis CT 06/24/16 1545 Signed Impressions: Service Date/Time: Friday, June 24, 2016 19:30 - CONCLUSION: Widespread metastatic disease. Likely distal bowel obstruction and right ureteral obstruction. See above for complete details Alberto Mckinley MD Abdomen X-Ray 06/24/16 0000 Signed Impressions: Service Date/Time: Friday, June 24, 2016 23:44 - CONCLUSION: 1. NG tube appears to be in the mid to distal esophagus. Recommend advancing the NG tube approximately 10 cm. 2. Hydronephrosis of the right collecting system with what appears to be obstruction at the mid right ureter. 3. Nonspecific air-filled loops of small and large bowel throughout the abdomen. Kalia Rasmussen MD Objective Remarks General: Thin female in no acute distress. Heart: Regular rate and rhythm. No murmur. Lungs: Clear to auscultation bilaterally. No wheezes, rales, or rhonchi. Breathing is nonlabored. Abdomen: Soft, nontender, nondistended. Ostomy noted. Extremities: No lower extremity edema. Psych: Alert and oriented. Procedures 06/25/16 exploratory laparotomy with diverting loop transverse colostomy Urinary Catheter: Yes Assessment to: Continue Erickson insert reason: Prolonged Immobilization Vascular Central Line Catheter: No A/P Problem List: (1) Metastatic breast cancer ICD Code: C50.919 Status: Acute (2) Urethral obstruction ICD Code: N36.8 Status: Acute (3) Bowel obstruction ICD Code: K56.60 Status: Acute (4) Hypercalcemia ICD Code: E83.52 Status: Acute (5) Hypotension ICD Code: I95.9 Status: Acute (6) Bandemia ICD Code: D72.825 Status: Acute Assessment and Plan 1. 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 Status post radiation therapy. Appreciate oncology recommendations. Continue Decadron. CT of the chest shows metastatic disease. Bone scan report noted. MRI of the thoracic spine shows metastatic disease to T6 vertebral body. Appreciate radiation oncology recommendations for palliative radiation therapy. 2. Bowel obstruction: Status post exploratory laparotomy with diverting colostomy on 06/25/16. Management per colorectal surgery. Full liquid diet. 3. Ureteral obstruction: Appreciate urology recommendations. 4. Hypercalcemia: Likely secondary to metastases. Patient given a dose of IV pamidronate by oncology. 5. Bandemia: Improving. Blood cultures are negative so far. Continue antibiotics for possible intra-abdominal infection. 6. DVT prophylaxis: STEPH Brown. 7. Hypotension on admission: Improving. Continue IV fluids. 8. Hypokalemia: Improved. Continue potassium supplementation in IV fluids. Eddie Posada MD July 01, 2016 14:21
--- NOTE | 2016-07-01 15:52 | HHI.PR ---
Subjective Remarks POD#5 s/p diverting transverse colostomy hungry Objective Vital Signs Date Time Temp Pulse Resp B/P Pulse Ox O2 Delivery O2 Flow Rate FiO2 07/01/16 12:03 96.4 110 16 98/62 94 07/01/16 07:56 96.9 108 16 87/63 96 07/01/16 06:00 18 07/01/16 04:35 97.2 105 16 101/55 95 07/01/16 00:40 97.4 100 16 103/69 95 06/30/16 22:00 18 06/30/16 20:25 96.8 108 16 105/67 96 I/O 06/30/16 06/30/16 06/30/16 07/01/16 07/01/16 07/01/16 07:00 15:00 23:00 07:00 15:00 23:00 Intake Total 1019 ml 240 ml 680 ml 240 ml Output Total 1100 ml 900 ml 1500 ml 1300 ml Balance -81 ml -660 ml -820 ml -1060 ml Intake Oral 60 ml 240 ml 240 ml 240 ml IV Total 959 ml 440 ml Output Urine Total 1100 ml 900 ml 1500 ml 1300 ml Stool Total 0 ml # Voids 0 # Bowel Movements 0 0 0 Result Diagram: 07/01/1662607/01/16626 Objective Remarks Abdomen: soft,nondistended, stoma pink stool in bag Assessment and Plan Assessment and Plan Advance diet Suzie Ace MD July 01, 2016 15:52
[2016-07-01 16:00] VITALS: BP 100/71; PULSE 109; RESP 16; TEMP 96.3; O2SAT 94
[2016-07-01 20:40] VITALS: BP 98/65; PULSE 108; RESP 16; TEMP 96.8; O2SAT 97
[2016-07-02] VITALS (8 sets, daily range): BP systolic 89–107; BP diastolic 59–68; PULSE 76–109; RESP 15–18; TEMP 95.7–96.7; O2SAT 95–98
[2016-07-02] MEDS: MORPHINE SULFATE 30 MG/30 ML PCA IV SCH (00:19)
[2016-07-02] MEDS: METOCLOPRAMIDE HCL 10 MG/2 ML VIAL IV PUSH SCH ×3 (05:35→16:43)
[2016-07-02] MEDS: PCA - TOTAL MG MORPHINE DELIVERED PER SHIFT SCH (05:36)
--- NOTE | 2016-07-02 07:27 | HHI.PR ---
Subjective Remarks POD#7 s/p diverting transverse colostomy back pain improved after radiation treatment Objective Vital Signs Date Time Temp Pulse Resp B/P Pulse Ox O2 Delivery O2 Flow Rate FiO2 07/02/16 05:36 15 07/02/16 04:30 96.7 102 16 93/59 97 07/02/16 00:19 17 07/02/16 00:18 96.3 102 16 101/66 95 07/01/16 22:03 16 07/01/16 20:40 96.8 108 16 98/65 97 07/01/16 16:00 96.3 109 16 100/71 94 07/01/16 14:00 16 07/01/16 12:03 96.4 110 16 98/62 94 07/01/16 07:56 96.9 108 16 87/63 96 I/O 07/01/16 07/01/16 07/01/16 07/02/16 07/02/16 07/02/16 07:00 15:00 23:00 07:00 15:00 23:00 Intake Total 240 ml 240 ml 240 ml Output Total 1300 ml 750 ml 900 ml 950 ml Balance -1060 ml -750 ml -660 ml -710 ml Intake Oral 240 ml 240 ml 240 ml Output Urine Total 1300 ml 750 ml 900 ml 950 ml Stool Total 0 ml # Bowel Movements 0 1 0 0 Result Diagram: 07/01/1662607/01/16626 Objective Remarks Abdomen: soft,nondistended, stoma pink stool in bag Assessment and Plan Assessment and Plan Doing well Home per Medical/Oncology Followup with Dr. Ovalle 1 week Suzie Ace MD July 02, 2016 07:27
[2016-07-02] MEDS: PANTOPRAZOLE SODIUM 40 MG VIAL IV PUSH SCH (08:26)
[2016-07-02] MEDS: DEXAMETHASONE SOD PHOS 4 MG/ML VIAL IV PUSH SCH (08:27)
[2016-07-02] MEDS: metroNIDAZOLE 500 MG INJ 100 ML IV SCH ×2 (08:27→16:49)
[2016-07-02] MEDS: SODIUM CHLORIDE 0.9% FLUSH 10 ML FLUSH IV FLUSH SCH ×2 (08:28→19:16)
[2016-07-02] MEDS: D5-NS + KCL 20 MEQ INJ 1,000 ML IV SCH (08:28)
--- NOTE | 2016-07-02 10:04 | HHI.DCPOC ---
Discharge Care Plan Diagnosis: (1) Metastatic breast cancer (2) SBO (small bowel obstruction) (3) Hypercalcemia (4) Urethral obstruction (5) Bandemia (6) Hypotension Goals to Promote Your Health * To prevent worsening of your condition and complications * To maintain your health at the optimal level Directions to Meet Your Goals Take your medications as prescribed Follow your dietary instruction Follow activity as directed Keep your appointments as scheduled Take your immunizations and boosters as scheduled If your symptoms worsen call your PCP, if no PCP go to Urgent Care Center or Emergency Room Smoking is Dangerous to Your Health. Avoid second hand smoke Call the 24-hour hour crisis hotline for domestic abuse at Eddie Posada MD July 02, 2016 10:04
--- NOTE | 2016-07-02 10:05 | HHI.FF ---
Face to Face Verification Diagnosis: (1) Metastatic breast cancer (2) Bowel obstruction (3) Hypotension (4) Hypercalcemia (5) Urethral obstruction Physical Therapy Order: Evaluate and Treat Home Health Nursing Order: Nursing assessment with vital signs Erickson catheter maintenance I have seen patient Awilda Luciano on 07/02/16. My clinical findings support the need for the requested home health care services because: Deconditioned w/ increased weakness I certify that my clinical findings support that this patient is homebound because: Unsteady gait/balance Eddie Posada MD July 02, 2016 10:05
[2016-07-02] MEDS ORDERED: PANT40TA3 PO (10:08)
--- NOTE | 2016-07-02 10:18 | HHI.PR ---
Subjective Remarks Follow-up back pain, abdominal pain, metastatic breast cancer. The patient states that her back pain was much better following radiation therapy yesterday. She did have some more pain early this morning, but it resolved with pain medication. Overall she feels better today. She did have some nausea, which she attributes to eating regular food for the first time in a while. Objective Vitals Vital Signs Date Time Temp Pulse Resp B/P Pulse Ox O2 Delivery O2 Flow Rate FiO2 07/02/16 05:36 15 07/02/16 04:30 96.7 102 16 93/59 97 07/02/16 00:19 17 07/02/16 00:18 96.3 102 16 101/66 95 07/01/16 22:03 16 07/01/16 20:40 96.8 108 16 98/65 97 07/01/16 16:00 96.3 109 16 100/71 94 07/01/16 14:00 16 07/01/16 12:03 96.4 110 16 98/62 94 I/O 07/01/16 07/01/16 07/01/16 07/02/16 07/02/16 07/02/16 07:00 15:00 23:00 07:00 15:00 23:00 Intake Total 240 ml 240 ml 240 ml Output Total 1300 ml 750 ml 900 ml 950 ml Balance -1060 ml -750 ml -660 ml -710 ml Intake Oral 240 ml 240 ml 240 ml Output Urine Total 1300 ml 750 ml 900 ml 950 ml Stool Total 0 ml # Bowel Movements 0 1 0 0 Result Diagram: 07/01/16 0627 07/01/16 0627 Imaging Last Impressions Thoracic Spine MRI 06/30/16 0000 Signed Impressions: Service Date/Time: June 13:29 - CONCLUSION: 1. Osseous metastatic disease to T6 vertebral body extending into the pedicle and posterior elements on the left. There is minimal epidural soft tissue component but no significant stenosis Pasquale Mcallister MD Chest CT 06/29/16 0000 Signed Impressions: Service Date/Time: Wednesday, June 29, 2016 12:54 - CONCLUSION: 1. Findings of pulmonary hepatic and osseous metastatic disease. 2. The mass in the thoracic spine is concerning for spinal stenosis and contrast enhanced MRI is recommended Pasquale Mcallister MD Bone Scan Nuclear Medicine 06/29/16 0000 Signed Impressions: Service Date/Time: Wednesday, June 29, 2016 12:54 - CONCLUSION: 1. No definite findings to indicate metastatic disease to bone are identified. 2. The area of increased uptake in the right chest is the residual tracer within the patient' s port. Joaquin Guzman MD Abdomen/Pelvis CT 06/24/16 1545 Signed Impressions: Service Date/Time: Friday, June 24, 2016 19:30 - CONCLUSION: Widespread metastatic disease. Likely distal bowel obstruction and right ureteral obstruction. See above for complete details Alberto Mckinley MD Abdomen X-Ray 06/24/16 0000 Signed Impressions: Service Date/Time: Friday, June 24, 2016 23:44 - CONCLUSION: 1. NG tube appears to be in the mid to distal esophagus. Recommend advancing the NG tube approximately 10 cm. 2. Hydronephrosis of the right collecting system with what appears to be obstruction at the mid right ureter. 3. Nonspecific air-filled loops of small and large bowel throughout the abdomen. Kalia Rasmussen MD Objective Remarks General: Thin female in no acute distress. Heart: Regular rate and rhythm. No murmur. Lungs: Clear to auscultation bilaterally. No wheezes, rales, or rhonchi. Breathing is nonlabored. Abdomen: Soft, nontender, nondistended. Ostomy noted. Extremities: No lower extremity edema. SCDs. Psych: Alert and oriented. Procedures 06/25/16 exploratory laparotomy with diverting loop transverse colostomy Urinary Catheter: Yes Assessment to: Continue Erickson insert reason: Obstruction/Retention Vascular Central Line Catheter: No A/P Problem List: (1) Metastatic breast cancer ICD Code: C50.919 Status: Acute (2) Urethral obstruction ICD Code: N36.8 Status: Acute (3) Bowel obstruction ICD Code: K56.60 Status: Acute (4) Hypercalcemia ICD Code: E83.52 Status: Acute (5) Hypotension ICD Code: I95.9 Status: Acute (6) Bandemia ICD Code: D72.825 Status: Acute Assessment and Plan 1. 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 Status post radiation therapy. Appreciate oncology recommendations. Continue Decadron. CT of the chest shows metastatic disease. Bone scan report noted. MRI of the thoracic spine shows metastatic disease to T6 vertebral body. Patient is now receiving palliative radiation treatment. 2. Bowel obstruction: Status post exploratory laparotomy with diverting colostomy on 06/25/16. Regular diet as tolerated. Cleared for discharge by colorectal surgery. 3. Ureteral obstruction: Appreciate urology recommendations. 4. Hypercalcemia: Likely secondary to metastases. Patient given a dose of IV pamidronate by oncology. 5. Bandemia: Improving. Blood cultures are negative. Continue antibiotics for possible intra-abdominal infection. 6. DVT prophylaxis: STEPH Brown. 7. Hypotension on admission: Improving. Continue IV fluids. 8. Hypokalemia: Improved. Continue potassium supplementation in IV fluids. We'll transition from IV pain medication to oral pain medication in hopes of possible discharge tomorrow. Discharge Planning Possible discharge home tomorrow with home health care. Eddie Posada MD July 02, 2016 10:18
[2016-07-02] MEDS: CIPROFLOXACIN 400 MG PREMIX 200 ML IV SCH ×2 (12:08→23:03)
[2016-07-02] MEDS: oxyCODONE/ACETAMINOPHEN 7.5 MG/325 MG TAB PO PRN ×2 (12:20→16:43)
[2016-07-03] VITALS (7 sets, daily range): BP systolic 85–111; BP diastolic 51–62; PULSE 92–125; RESP 16–20; TEMP 95.3–97; O2SAT 95–98
[2016-07-03] MEDS: metroNIDAZOLE 500 MG INJ 100 ML IV SCH ×4 (00:07→23:59)
[2016-07-03] MEDS: oxyCODONE/ACETAMINOPHEN 7.5 MG/325 MG TAB PO PRN ×2 (00:07→05:46)
[2016-07-03] MEDS: METOCLOPRAMIDE HCL 10 MG/2 ML VIAL IV PUSH SCH ×4 (00:10→16:14)
[2016-07-03] MEDS: D5-NS + KCL 20 MEQ INJ 1,000 ML IV SCH (02:08)
[2016-07-03 06:16] LABS: AUTOMATED NEUTROPHIL # 11.4 TH/MM3 (1.8-7.7); BASOPHIL # 0.1 TH/MM3 (0-0.2); BASOPHIL % 0.6 % (0.0-2.0); EOSINOPHIL % 0.1 % (0.0-4.0); HEMATOCRIT 33.1 % (35.0-46.0); LYMPH % 11.7 % (9.0-44.0); LYMPHOCYTE # 1.6 TH/MM3 (1.0-4.8); MEAN CELL VOLUME 86.9 FL (80.0-100.0); MEAN CORPUSCULAR HGB CONC 32.2 % (32.0-36.0); MONO % 3.7 % (0.0-8.0); NEUT % 83.9 % (16.0-70.0); PLATELET COUNT 179 TH/MM3 (150-450); RED BLOOD COUNT 3.81 MIL/MM3 (4.00-5.30); RED CELL DISTRIBUTION WIDTH 22.8 % (11.6-17.2); WHITE BLOOD COUNT 13.6 TH/MM3 (4.0-11.0)
[2016-07-03 06:19] LABS: HEMO FLAGS AUTO DIFF
[2016-07-03 06:44] LABS: BICARBONATE 23.4 MEQ/L (21.0-32.0); POTASSIUM 3.1 MEQ/L (3.5-5.1)
[2016-07-03] MEDS: DEXAMETHASONE SOD PHOS 4 MG/ML VIAL IV PUSH SCH (09:36)
[2016-07-03] MEDS: SODIUM CHLORIDE 0.9% FLUSH 10 ML FLUSH IV FLUSH SCH ×2 (09:37→21:00)
[2016-07-03] MEDS: PANTOPRAZOLE SODIUM 40 MG VIAL IV PUSH SCH (09:37)
[2016-07-03 10:04] LABS: BANDS 16 % (0-6); METAMYELOCYTES 1 % (0-1); PLATELET ESTIMATE SMEAR NORMAL (NORMAL); PLATELET MORPHOLOGY NORMAL (NORMAL); POLYS (SEG NEUTROPHILS) 71 % (16-70); SCAN/DIFF FINAL DIFF MANUAL; TOXIC GRANULATION 1+ (NORMAL); WBC DIFF SAMPLE 100
--- NOTE | 2016-07-03 10:34 | MB ---
cc: NELLIE GARCIA M.D., MATTHEW T. M.D. KROCHAK, RONALD J. M.D. ALVAREZ-FARINETTI, ALVARO LEGER, ROSANNE R. MD DATE OF CONSULTATION: 06/30/[address] Saul Mckeon. DIAGNOSIS Metastatic progressive breast carcinoma. Stage IV. HISTORY OF PRESENT ILLNESS This is a 56-year-old white female known to the department and to me, as I treated her initially with her initial diagnosis of breast carcinoma. The patient had been treated several times in the department by Dr. Hopson for metastatic disease. Recently she received radiosurgery for brain lesions. The patient presented with history of constipation for 10 days, was evaluated and found to be obstructed and taken to surgery and had diverting colostomy. The patient has developed progressive pain in the upper mid back. Imaging studies have detected metastatic lytic lesion at T6. I have been consulted for palliative radiotherapy to this area. PAST MEDICAL HISTORY Past medical history as above. Also history of: 1. Metastatic disease to the brain, liver and colon. 2. History of anxiety. 3. History of port placement. 4. History of bilateral mastectomies with reconstruction. 5. History of left adrenalectomy. 6. Left breast implant removed. MEDICATIONS 1. Prontonix. 2. Reglan. 3. Decadron. 4. Flagyl. 5. Cipro. ALLERGIES No known drug allergies. FAMILY HISTORY Unremarkable for carcinoma. SOCIAL HISTORY The patient denies any smoking or major ETOH intake. REVIEW OF SYSTEMS CONSTITUTIONAL: The patient admits to loss and decreased appetite, loss of weight. Fatigue. ALLERGIES: No allergic reaction recently. EYES: Unremarkable. ENT: Unremarkable. NECK: Unremarkable. INTEGUMENTARY: Unremarkable. CARDIOVASCULAR: Denies any chest pain or clinical signs of ND. RESPIRATORY: Unremarkable. Denies hemoptysis, cough. GASTROINTESTINAL: Recently history of obstruction, feels better, has colostomy. GENITOURINARY: Unremarkable. MUSCULOSKELETAL: Pain which has been continued to increase in intensity in the mid back. NEUROLOGICAL: Denies any neurological deficits. Slow mentation. No motor function deficit. PSYCHIATRIC: Anxiety. Denies any suicidal thoughts or depression. ENDOCRINE: Unremarkable. HEMATOLOGIC: Unremarkable. DERMATOLOGIC: Unremarkable. PHYSICAL EXAMINATION GENERAL: The patient is oriented x 3, in some discomfort due to the back pain but is controlled with the present pain medication. She rates her pain when it is intense 9-10/10. VITAL SIGNS: Vital signs are stable. Temperature 97.8, pulse 109, respiratory rate 16, blood pressure of 97/58, pulse ox 96%. LUNGS: To auscultation bilateral lungs were clear to auscultation with decreased ventilatory and respiratory effort. HEART: Heart was regular in rate and rhythm without murmurs. NECK: Palpation of the neck and bilateral supraclavicular areas are free. ABDOMEN: Palpation of abdominal cavity reveals no hepatosplenomegaly elicited. Colostomy in place. EXTREMITIES: No lower extremity edema detected. NEUROLOGIC: To neurologic examination no neurological deficit detected. The patient has slow in mentation but no motor function deficits noted. The patient does have pain to palpation of the posterior back around the T6 vertebral body area. No other positive findings. SURGICAL PATHOLOGY As previously recorded in the records. RADIOLOGY Abdomen and pelvis CT 06/24/2016, reviewed. CONCLUSION Widespread metastatic disease, likely distal bowel obstruction and right ureteral obstruction. Bone scan 06/29/2016. Impression. No definite findings to indicate metastatic disease to the bone. The area of increased uptake in the right chest as the residual tracer within the patient's port. MRI of the T-spine 06/30/2016. Impression. Osseous metastatic disease at the T6 vertebral body extending into the pedicle and posterior elements on the left. There is minimal epidural soft tissue component but no significant stenosis. ASSESSMENT A 56-year-old white female with diagnosis of progressive breast carcinoma with metastasis symptomatic in the T-spine. The patient is being evaluated for palliative radiotherapy treatment options. PLAN I had an extensive discussion with the patient in regards to her present disease and condition, sister was present. I have discussed this case personally with Dr. Mckeon. I have reviewed his note from 06/28/2016. I discussed with the patient the possibility of palliative radiotherapy to the T-spine. The patient does look with significant decrease in performance status from when I saw her last. She stated that she would like to receive radiation to the T-spine. I advised the patient I will have to review all her previous radiation therapy treatments and make sure that we can deliver radiation safely to this area. I discussed the merits of the radiation therapy as well as the purpose, side effects, complications to include but not limited to weakness and fatigue, decreased blood counts, edema of skin, necrosis of skin, difficulty in swallowing, esophageal strictures, lung damage, lung fibrosis, lung pneumonitis, bowel damage, diarrhea, nausea and vomiting, stomach damage, nerve damage and spinal cord damage. After thorough discussion she wanted to proceed forward with treatments. I will see if I can bring the patient down tomorrow afternoon for simulation and start radiation as soon as possible. She was advised if she has any further questions to please let me know. Dr. Mckeon, thank you very much for placing this consult and allowing me to participate in her care. Should you have any further questions or concerns, please do not hesitate to contact me. MD RAFI Lopez/ROSALVA /7:55 PM /9:44 AM MTDD
--- NOTE | 2016-07-03 10:45 | HHI.PR ---
Subjective Remarks POD#8 s/p diverting transverse colostomy d/c per medicine followup with Dr. Ovalle 1 week Objective Vital Signs Date Time Temp Pulse Resp B/P Pulse Ox O2 Delivery O2 Flow Rate FiO2 07/03/16 08:00 96.9 102 16 93/57 97 07/03/16 04:38 96 07/03/16 04:00 96.2 100 17 92/51 97 07/03/16 00:00 97.0 92 17 111/62 98 07/02/16 22:00 96.3 109 17 105/59 97 07/02/16 20:15 96.1 104 15 107/64 97 07/02/16 17:00 76 07/02/16 16:00 95.8 106 15 101/67 98 07/02/16 12:00 95.7 109 17 102/68 98 I/O 07/02/16 07/02/16 07/02/16 07/03/16 07/03/16 07/03/16 07:00 15:00 23:00 07:00 15:00 23:00 Intake Total 240 ml 720 ml 240 ml 722 ml 120 ml Output Total 950 ml 950 ml 200 ml 200 ml Balance -710 ml -230 ml 40 ml 522 ml 120 ml Intake Oral 240 ml 720 ml 240 ml 240 ml 120 ml IV Total 482 ml Output Urine Total 950 ml 900 ml 200 ml 200 ml Stool Total 0 ml 50 ml # Bowel Movements 0 Result Diagram: 07/03/16 0501 07/03/16 0501 Objective Remarks Abdomen: soft,nondistended, stoma pink stool in bag Assessment and Plan Assessment and Plan Doing well Home per Medical/Oncology Followup with Dr. Ovalle 1 week Suzie Ace MD July 03, 2016 10:45
[2016-07-03] MEDS: oxyCODONE/ACETAMINOPHEN 10 MG/325 MG TAB PO PRN ×3 (11:55→23:57)
--- NOTE | 2016-07-03 12:20 | HHI.PR ---
Subjective Remarks Follow up abdominal pain, bowel obstruction, metastatic breast cancer. Pain controlled overnight with oral pain medication. Going for radiation treatment now. Objective Vitals Vital Signs Date Time Temp Pulse Resp B/P Pulse Ox O2 Delivery O2 Flow Rate FiO2 07/03/16 08:00 96.9 102 16 93/57 97 07/03/16 04:38 96 07/03/16 04:00 96.2 100 17 92/51 97 07/03/16 00:00 97.0 92 17 111/62 98 07/02/16 22:00 96.3 109 17 105/59 97 07/02/16 20:15 96.1 104 15 107/64 97 07/02/16 17:00 76 07/02/16 16:00 95.8 106 15 101/67 98 I/O 07/02/16 07/02/16 07/02/16 07/03/16 07/03/16 07/03/16 07:00 15:00 23:00 07:00 15:00 23:00 Intake Total 240 ml 720 ml 240 ml 722 ml 120 ml Output Total 950 ml 950 ml 200 ml 200 ml Balance -710 ml -230 ml 40 ml 522 ml 120 ml Intake Oral 240 ml 720 ml 240 ml 240 ml 120 ml IV Total 482 ml Output Urine Total 950 ml 900 ml 200 ml 200 ml Stool Total 0 ml 50 ml # Bowel Movements 0 Result Diagram: 07/03/16 0501 07/03/16 0501 Imaging Last Impressions Thoracic Spine MRI 06/30/16 0000 Signed Impressions: Service Date/Time: June 13:29 - CONCLUSION: 1. Osseous metastatic disease to T6 vertebral body extending into the pedicle and posterior elements on the left. There is minimal epidural soft tissue component but no significant stenosis Pasquale Mcallister MD Chest CT 06/29/16 0000 Signed Impressions: Service Date/Time: Wednesday, June 29, 2016 12:54 - CONCLUSION: 1. Findings of pulmonary hepatic and osseous metastatic disease. 2. The mass in the thoracic spine is concerning for spinal stenosis and contrast enhanced MRI is recommended Pasquale Mcallister MD Bone Scan Nuclear Medicine 06/29/16 0000 Signed Impressions: Service Date/Time: Wednesday, June 29, 2016 12:54 - CONCLUSION: 1. No definite findings to indicate metastatic disease to bone are identified. 2. The area of increased uptake in the right chest is the residual tracer within the patient' s port. Joaquin Guzman MD Abdomen/Pelvis CT 06/24/16 1545 Signed Impressions: Service Date/Time: Friday, June 24, 2016 19:30 - CONCLUSION: Widespread metastatic disease. Likely distal bowel obstruction and right ureteral obstruction. See above for complete details Alberto Mckinley MD Abdomen X-Ray 06/24/16 0000 Signed Impressions: Service Date/Time: Friday, June 24, 2016 23:44 - CONCLUSION: 1. NG tube appears to be in the mid to distal esophagus. Recommend advancing the NG tube approximately 10 cm. 2. Hydronephrosis of the right collecting system with what appears to be obstruction at the mid right ureter. 3. Nonspecific air-filled loops of small and large bowel throughout the abdomen. Kalia Rasmussen MD Objective Remarks General: Thin female in no acute distress. Heart: Regular rate and rhythm. No murmur. Lungs: Clear to auscultation bilaterally. No wheezes, rales, or rhonchi. Breathing is nonlabored. Abdomen: Soft, nontender, nondistended. Ostomy noted. Extremities: No lower extremity edema. SCDs. Psych: Alert and oriented. Procedures 06/25/16 exploratory laparotomy with diverting loop transverse colostomy Urinary Catheter: Yes Assessment to: Continue Erickson insert reason: Obstruction/Retention Vascular Central Line Catheter: No A/P Problem List: (1) Metastatic breast cancer ICD Code: C50.919 Status: Acute (2) Urethral obstruction ICD Code: N36.8 Status: Acute (3) Bowel obstruction ICD Code: K56.60 Status: Acute (4) Hypercalcemia ICD Code: E83.52 Status: Acute (5) Hypotension ICD Code: I95.9 Status: Acute (6) Bandemia ICD Code: D72.825 Status: Acute Assessment and Plan 1. 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 Status post radiation therapy. Appreciate oncology recommendations. Continue Decadron. CT of the chest shows metastatic disease. Bone scan report noted. MRI of the thoracic spine shows metastatic disease to T6 vertebral body. Patient is now receiving palliative radiation treatment. Pain is controlled with oral pain medication. 2. Bowel obstruction: Status post exploratory laparotomy with diverting colostomy on 06/25/16. Regular diet as tolerated. Cleared for discharge by colorectal surgery. 3. Ureteral obstruction: Appreciate urology recommendations. 4. Hypercalcemia: Likely secondary to metastases. Patient given a dose of IV pamidronate by oncology. 5. Bandemia: Improving. Blood cultures are negative. Continue antibiotics for possible intra-abdominal infection. 6. DVT prophylaxis: SCDs, STEPH warner. 7. Hypotension on admission: Improving. Continue IV fluids. 8. Hypokalemia: Improved. Continue potassium supplementation in IV fluids. Discharge Planning Possible discharge home this afternoon with home health care. Eddie Posada MD July 03, 2016 12:20
[2016-07-03] MEDS ORDERED: OXYC1TAB36 PO (12:21)
[2016-07-03] MEDS: MORPHINE SULFATE 4 MG/ML INJ IV PRN ×2 (13:26→22:24)
[2016-07-03] MEDS: CIPROFLOXACIN 400 MG PREMIX 200 ML IV SCH ×2 (13:27→23:59)
[2016-07-04] VITALS: BP 97/60; PULSE 117; RESP 18; TEMP 96; O2SAT 98
[2016-07-04] MEDS: METOCLOPRAMIDE HCL 10 MG/2 ML VIAL IV PUSH SCH ×5 (00:03→23:18)
[2016-07-04] MEDS: D5-NS + KCL 20 MEQ INJ 1,000 ML IV SCH ×2 (01:05→21:14)
[2016-07-04] MEDS: MORPHINE SULFATE 4 MG/ML INJ IV PRN ×2 (02:38→08:45)
[2016-07-04 04:00] VITALS: BP 102/59; PULSE 102; RESP 18; TEMP 96.5; O2SAT 96
[2016-07-04] MEDS: oxyCODONE/ACETAMINOPHEN 10 MG/325 MG TAB PO PRN ×2 (05:33→23:18)
[2016-07-04 08:00] VITALS: BP 90/62; PULSE 106; RESP 16; TEMP 97.4; O2SAT 98
[2016-07-04] MEDS: SODIUM CHLORIDE 0.9% FLUSH 10 ML FLUSH IV FLUSH SCH ×2 (08:45→21:00)
[2016-07-04] MEDS: metroNIDAZOLE 500 MG INJ 100 ML IV SCH ×2 (08:46→16:00)
[2016-07-04] MEDS: PANTOPRAZOLE SODIUM 40 MG VIAL IV PUSH SCH (08:48)
[2016-07-04] MEDS: DEXAMETHASONE SOD PHOS 4 MG/ML VIAL IV PUSH SCH (08:48)
[2016-07-04] MEDS ORDERED: WALKER WHEELS/F1 MIS (10:55)
[2016-07-04] MEDS ORDERED: POTASSIUM CHLORIDE 20 MEQ CONTROLLED RELEASE TAB PO ONE (11:00)
--- NOTE | 2016-07-04 11:07 | PD.ONC.PN ---
Subjective Subjective Remarks Afebrile overnight. Patient lying on bed, about to go down for radiation. She feels her pain is better controlled and she hopes to go home soon. Objective Data Date Time Temp Pulse Resp B/P Pulse Ox O2 Delivery O2 Flow Rate FiO2 07/04/16 08:00 97.4 106 16 90/62 98 07/04/16 04:00 96.5 102 18 102/59 96 07/04/16 00:00 96.0 117 18 97/60 98 07/03/16 20:00 96.2 124 18 97/56 98 07/03/16 20:00 125 07/03/16 16:00 95.3 115 20 85/60 96 07/03/16 12:00 96.9 101 20 91/55 95 07/04/16 07/04/16 07/04/16 07:00 15:00 23:00 Intake Total 1416 ml Output Total 600 ml Balance 816 ml Result Diagram: 07/03/16 0501 07/03/16 0501 Administered Medications Medications (Trade) Dose Ordered Sig/Nico Route PRN Reason Start Time Stop Time Status Last Admin Dose Admin Sodium Chloride (NS Flush) 2 ml BID IV FLUSH 06/24/16 21:00 07/04/16 08:45 Dexamethasone Sodium Phosphate 4 mg 4 mg DAILY IV PUSH 06/25/16 09:00 07/04/16 08:48 Ciprofloxacin/ Dextrose 200 ml @ 200 mls/hr Q12H IV 06/24/16 23:00 07/03/16 23:59 Metronidazole (Flagyl 500 Mg Inj) 100 ml @ 100 mls/hr Q8H IV 06/25/16 00:00 07/04/16 08:46 Metoclopramide HCl (Reglan Inj) 10 mg Q6HR IV PUSH 06/25/16 18:00 07/04/16 05:34 Pantoprazole Sodium 40 mg 40 mg DAILY IV PUSH 06/26/16 09:00 07/04/16 08:48 Potassium Chloride/Dextrose/ Sod Cl (D5-NS + KCl 20 Meq Inj) 1,000 ml @ 50 mls/hr Q20H IV 06/28/16 15:00 07/04/16 01:05 Morphine Sulfate (Morphine Inj) 4 mg Q4H PRN IV BREAKTHROUGH PAIN 07/02/16 10:30 07/04/16 08:45 Oxycodone/ Acetaminophen (Percocet 7.5-325 Mg) 1 tab Q4H PRN PO PAIN SCALE 3 TO 6 07/02/16 10:30 07/03/16 05:46 Oxycodone/ Acetaminophen (Percocet 10-325 Mg) 1 tab Q4H PRN PO PAIN SCALE 7 TO 10 07/02/16 10:30 07/04/16 05:33 Objective Remarks GENERAL: Pleasant, frail female, lying in bed in nad. SKIN: Warm and dry. HEAD: Normocephalic. EYES: No injection or drainage. NECK: Supple, trachea midline. CARDIOVASCULAR: Regular rate and rhythm RESPIRATORY: anterior jama clear GASTROINTESTINAL: Abdomen soft, non-tender, nondistended. ostomy bag with dark formed stool. EXTREMITIES: No cyanosis NEUROLOGICAL: awake and alert, normal speech Assessment/Plan Problem List: (1) Metastatic breast cancer Status: Acute Plan: -- Original diagnosis she was found to be triple positive. -- Bone scan on 06/29 showed wilfred, however CT chest showed a metastatic lesion in her lung, liver and in the area of T6. Assessment 56 y/o female with history of metastatic breast cancer admitted with constipation Plan 1. continue supportive care, pain management 2. radiation oncology to set up simulation 3. d/c per primary and surgery Attending Statement The exam, history, and the medical decision-making described in the above note were completed with the assistance of the mid-level provider. I reviewed and agree with the findings presented. I attest that I had a [id number] encounter with the patient on the same day, and personally performed and documented my assessment and findings in the medical record. Tolerating XRT. Back pain improved. LLQ pain better today. Clear by colorectal surgery. Can be d/c from oncology standpoint. F?u oncology clinic for palliative chemo after completing the XRT. Magda Low July 04, 2016 11:07 Saul Mckeon MD July 04, 2016 12:28
--- NOTE | 2016-07-04 11:15 | HHI.FF ---
Face to Face Verification Diagnosis: (1) Hypercalcemia (2) Bowel obstruction (3) Urethral obstruction (4) Hypotension (5) Bandemia (6) Metastatic disease (7) Generalized weakness (8) Metastatic breast cancer Physical Therapy Order: Evaluate and Treat Home Health Nursing Order: Wound care and dressing changes (Foam dressing to coccyx wound.) Nursing assessment with vital signs Erickson catheter maintenance Instructions: Ostomy care I have seen patient Awilda Luciano on 07/04/16. My clinical findings support the need for the requested home health care services because: Deconditioned w/ increased weakness I certify that my clinical findings support that this patient is homebound because: Unsteady gait/balance Eddie Posada MD July 04, 2016 11:15
--- NOTE | 2016-07-04 11:20 | HHI.PR ---
Subjective Remarks Follow up abdominal pain, bowel obstruction, metastatic breast cancer. Is much better today. She felt uncomfortable following ideation therapy yesterday, but has had radiation this morning and her pain is well controlled. She wants to go home today. Objective Vitals Vital Signs Date Time Temp Pulse Resp B/P Pulse Ox O2 Delivery O2 Flow Rate FiO2 07/04/16 08:00 97.4 106 16 90/62 98 07/04/16 04:00 96.5 102 18 102/59 96 07/04/16 00:00 96.0 117 18 97/60 98 07/03/16 20:00 96.2 124 18 97/56 98 07/03/16 20:00 125 07/03/16 16:00 95.3 115 20 85/60 96 07/03/16 12:00 96.9 101 20 91/55 95 I/O 07/03/16 07/03/16 07/03/16 07/04/16 07/04/16 07/04/16 07:00 15:00 23:00 07:00 15:00 23:00 Intake Total 722 ml 964 ml 240 ml 1416 ml Output Total 200 ml 1475 ml 300 ml 600 ml Balance 522 ml -511 ml -60 ml 816 ml Intake Oral 240 ml 600 ml 240 ml 240 ml IV Total 482 ml 364 ml 1176 ml Output Urine Total 200 ml 1475 ml 300 ml 600 ml # Bowel Movements 1 Result Diagram: 07/03/16 0501 07/03/16 0501 Imaging Last Impressions Thoracic Spine MRI 06/30/16 0000 Signed Impressions: Service Date/Time: June 13:29 - CONCLUSION: 1. Osseous metastatic disease to T6 vertebral body extending into the pedicle and posterior elements on the left. There is minimal epidural soft tissue component but no significant stenosis Pasquale Mcallister MD Chest CT 06/29/16 0000 Signed Impressions: Service Date/Time: Wednesday, June 29, 2016 12:54 - CONCLUSION: 1. Findings of pulmonary hepatic and osseous metastatic disease. 2. The mass in the thoracic spine is concerning for spinal stenosis and contrast enhanced MRI is recommended Pasquale Mcallister MD Bone Scan Nuclear Medicine 06/29/16 0000 Signed Impressions: Service Date/Time: Wednesday, June 29, 2016 12:54 - CONCLUSION: 1. No definite findings to indicate metastatic disease to bone are identified. 2. The area of increased uptake in the right chest is the residual tracer within the patient' s port. Joaquin Guzman MD Abdomen/Pelvis CT 06/24/16 1545 Signed Impressions: Service Date/Time: Friday, June 24, 2016 19:30 - CONCLUSION: Widespread metastatic disease. Likely distal bowel obstruction and right ureteral obstruction. See above for complete details Alberto Mckinley MD Abdomen X-Ray 06/24/16 0000 Signed Impressions: Service Date/Time: Friday, June 24, 2016 23:44 - CONCLUSION: 1. NG tube appears to be in the mid to distal esophagus. Recommend advancing the NG tube approximately 10 cm. 2. Hydronephrosis of the right collecting system with what appears to be obstruction at the mid right ureter. 3. Nonspecific air-filled loops of small and large bowel throughout the abdomen. Kalia Rasmussen MD Objective Remarks General: Cachectic female in no acute distress. Heart: Regular rate and rhythm. No murmur. Lungs: Clear to auscultation bilaterally. No wheezes, rales, or rhonchi. Breathing is nonlabored. Abdomen: Soft, nontender, nondistended. Ostomy noted. Extremities: No lower extremity edema. SCDs. Psych: Alert and oriented. Procedures 06/25/16 exploratory laparotomy with diverting loop transverse colostomy Urinary Catheter: Yes Assessment to: Continue Erickson insert reason: Obstruction/Retention Vascular Central Line Catheter: No A/P Problem List: (1) Metastatic breast cancer ICD Code: C50.919 Status: Acute (2) Urethral obstruction ICD Code: N36.8 Status: Acute (3) Bowel obstruction ICD Code: K56.60 Status: Acute (4) Hypercalcemia ICD Code: E83.52 Status: Acute (5) Hypotension ICD Code: I95.9 Status: Acute (6) Bandemia ICD Code: D72.825 Status: Acute Assessment and Plan 1. Metastatic breast cancer: There is evidence of metastases to the EPO[employer] SPECIALIST, liver, colon. Status post radiation therapy. Appreciate oncology recommendations. Continue Decadron. CT of the chest shows metastatic disease. Bone scan report noted. MRI of the thoracic spine shows metastatic disease to T6 vertebral body. Patient is now receiving palliative radiation treatment. Pain is controlled with oral pain medication. 2. Bowel obstruction: Status post exploratory laparotomy with diverting colostomy on 06/25/16. Regular diet as tolerated. Cleared for discharge by colorectal surgery. 3. Ureteral obstruction: Appreciate urology recommendations. 4. Hypercalcemia: Likely secondary to metastases. Patient given a dose of IV pamidronate by oncology. 5. Bandemia: Improving. Blood cultures are negative. Possible intra-abdominal infection treated with ciprofloxacin and metronidazole. 6. DVT prophylaxis: SCDs, STEPH warner. 7. Hypotension on admission: BP low, but stable. 8. Hypokalemia: Supplement potassium. Discharge Planning Discharge home when home health care is arranged. Eddie Posada MD July 04, 2016 11:20
[2016-07-04 12:09] LABS: BICARBONATE 23.5 MEQ/L (21.0-32.0)
[2016-07-04] MEDS: CIPROFLOXACIN 400 MG PREMIX 200 ML IV SCH (12:23)
[2016-07-04] MEDS: POLYETHYLENE GLYCOL 17 GM PKG PO SCH (17:59)
[2016-07-04 20:00] VITALS: BP 100/63; PULSE 112; RESP 16; TEMP 97.2; O2SAT 96
[2016-07-04 23:59] VITALS: BP 108/62; PULSE 109; RESP 16; TEMP 96.6; O2SAT 96
[2016-07-05] MEDS: METOCLOPRAMIDE HCL 10 MG/2 ML VIAL IV PUSH SCH ×3 (05:25→18:31)
[2016-07-05] MEDS: PANTOPRAZOLE SODIUM 40 MG VIAL IV PUSH SCH (07:42)
[2016-07-05] MEDS: DEXAMETHASONE SOD PHOS 4 MG/ML VIAL IV PUSH SCH (07:42)
[2016-07-05] MEDS: oxyCODONE/ACETAMINOPHEN 10 MG/325 MG TAB PO PRN (07:43)
[2016-07-05] MEDS: POLYETHYLENE GLYCOL 17 GM PKG PO SCH (07:43)
[2016-07-05] MEDS: SODIUM CHLORIDE 0.9% FLUSH 10 ML FLUSH IV FLUSH SCH ×2 (07:43→20:50)
[2016-07-05 08:00] VITALS: BP 101/60; PULSE 115; RESP 17; TEMP 97.8; O2SAT 98
[2016-07-05] MEDS ORDERED: DIATRIZOATE MEGLUM/DIATRIZOATE SOD 9 ML CUP PO ONE (09:15)
[2016-07-05] MEDS: MORPHINE SULFATE 4 MG/ML INJ IV PRN (09:29)
--- NOTE | 2016-07-05 09:52 | HHI.PR ---
Subjective Remarks Follow-up abdominal pain, metastatic breast cancer. The patient developed worsening abdominal pain overnight. He has also had some nausea. She is having pain at the site of her coccyx wound. Objective Vitals Vital Signs Date Time Temp Pulse Resp B/P Pulse Ox O2 Delivery O2 Flow Rate FiO2 07/05/16 08:00 97.8 115 17 101/60 98 07/04/16 23:59 96.6 109 16 108/62 96 07/04/16 20:00 97.2 112 16 100/63 96 I/O 07/04/16 07/04/16 07/04/16 07/05/16 07/05/16 07/05/16 07:00 15:00 23:00 07:00 15:00 23:00 Intake Total 1416 ml 1345 ml 688 ml Output Total 600 ml 800 ml 1210 ml 800 ml Balance 816 ml -800 ml 135 ml -112 ml Intake Oral 240 ml 480 ml 280 ml IV Total 1176 ml 865 ml 408 ml Output Urine Total 600 ml 800 ml 1200 ml 800 ml Stool Total 10 ml Result Diagram: 07/03/16 0501 07/04/16 1122 Imaging Last Impressions Thoracic Spine MRI 06/30/16 0000 Signed Impressions: Service Date/Time: June 13:29 - CONCLUSION: 1. Osseous metastatic disease to T6 vertebral body extending into the pedicle and posterior elements on the left. There is minimal epidural soft tissue component but no significant stenosis Pasquale Mcallister MD Chest CT 06/29/16 0000 Signed Impressions: Service Date/Time: Wednesday, June 29, 2016 12:54 - CONCLUSION: 1. Findings of pulmonary hepatic and osseous metastatic disease. 2. The mass in the thoracic spine is concerning for spinal stenosis and contrast enhanced MRI is recommended Pasquale Mcallister MD Bone Scan Nuclear Medicine 06/29/16 0000 Signed Impressions: Service Date/Time: Wednesday, June 29, 2016 12:54 - CONCLUSION: 1. No definite findings to indicate metastatic disease to bone are identified. 2. The area of increased uptake in the right chest is the residual tracer within the patient' s port. Joaquin Guzman MD Abdomen/Pelvis CT 06/24/16 1545 Signed Impressions: Service Date/Time: Friday, June 24, 2016 19:30 - CONCLUSION: Widespread metastatic disease. Likely distal bowel obstruction and right ureteral obstruction. See above for complete details Alberto Mckinley MD Abdomen X-Ray 06/24/16 0000 Signed Impressions: Service Date/Time: Friday, June 24, 2016 23:44 - CONCLUSION: 1. NG tube appears to be in the mid to distal esophagus. Recommend advancing the NG tube approximately 10 cm. 2. Hydronephrosis of the right collecting system with what appears to be obstruction at the mid right ureter. 3. Nonspecific air-filled loops of small and large bowel throughout the abdomen. Kalia Rasmussen MD Objective Remarks General: Cachectic female in no acute distress. Heart: Regular rate and rhythm. No murmur. Lungs: Clear to auscultation bilaterally. No wheezes, rales, or rhonchi. Breathing is nonlabored. Abdomen: Soft, diffuse tenderness, nondistended. Ostomy noted. Extremities: No lower extremity edema. SCDs. Psych: Alert and oriented. Skin: Stage IV decubitus ulcer overlying the coccyx. Procedures 06/25/16 exploratory laparotomy with diverting loop transverse colostomy A/P Problem List: (1) Metastatic breast cancer ICD Code: C50.919 Status: Acute (2) Urethral obstruction ICD Code: N36.8 Status: Acute (3) Bowel obstruction ICD Code: K56.60 Status: Acute (4) Hypercalcemia ICD Code: E83.52 Status: Acute (5) Hypotension ICD Code: I95.9 Status: Acute (6) Bandemia ICD Code: D72.825 Status: Acute Assessment and Plan 1. Metastatic breast cancer: There is evidence of metastases to the [employer], liver, colon. Status post radiation therapy. Appreciate oncology recommendations. Continue Decadron. CT of the chest shows metastatic disease. Bone scan report noted. MRI of the thoracic spine shows metastatic disease to T6 vertebral body. Patient is now receiving palliative radiation treatment. 2. Bowel obstruction: Status post exploratory laparotomy with diverting colostomy on 06/25/16. Regular diet as tolerated. Cleared for discharge by colorectal surgery. Abdominal pain worsening today. CT abdomen/pelvis ordered by oncology. 3. Ureteral obstruction: Appreciate urology recommendations. 4. Hypercalcemia: Likely secondary to metastases. Patient given a dose of IV pamidronate by oncology. 5. Bandemia: Improving. Blood cultures are negative. Possible intra-abdominal infection treated with ciprofloxacin and metronidazole. 6. DVT prophylaxis: SCDs, STEPH warner. 7. Hypotension on admission: BP low, but stable. 8. Hypokalemia: Improved. Recheck labs. 9. Stage IV decubitus ulcer over coccyx: Continue wound care. Discharge Planning Discharge on hold due to worsening abdominal pain. Eddie Posada MD July 05, 2016 09:52
--- NOTE | 2016-07-05 10:00 | PD.ONC.PN ---
Subjective Subjective Remarks Afebrile overnight. Patient complaining of pain in her abdomen, left upper and lower quadrants present since last night. She vomited once this morning. Objective Data Date Time Temp Pulse Resp B/P Pulse Ox O2 Delivery O2 Flow Rate FiO2 07/05/16 08:00 97.8 115 17 101/60 98 07/04/16 23:59 96.6 109 16 108/62 96 07/04/16 20:00 97.2 112 16 100/63 96 07/05/16 07/05/16 07/05/16 06:59 14:59 22:59 Intake Total 688 ml Output Total 800 ml Balance -112 ml Result Diagram: 07/03/16 0501 07/04/16 1122 Laboratory Results Laboratory Tests Test 07/04/16 11:22 Sodium Level 132 MEQ/L Potassium Level 5.0 MEQ/L Chloride Level 100 MEQ/L Carbon Dioxide Level 23.5 MEQ/L Anion Gap 9 MEQ/L Blood Urea Nitrogen 6 MG/DL Creatinine 0.25 MG/DL Estimat Glomerular Filtration 284 ML/MIN Rate Random Glucose 99 MG/DL Calcium Level 11.0 MG/DL Administered Medications Medications (Trade) Dose Ordered Sig/Nico Route PRN Reason Start Time Stop Time Status Last Admin Dose Admin Sodium Chloride (NS Flush) 2 ml BID IV FLUSH 06/24/16 21:00 07/04/16 08:45 Dexamethasone Sodium Phosphate (Decadron Inj) 4 mg DAILY IV PUSH 06/25/16 09:00 07/05/16 07:42 Metoclopramide HCl (Reglan Inj) 10 mg Q6HR IV PUSH 06/25/16 18:00 07/05/16 05:25 Pantoprazole Sodium 40 mg 40 mg DAILY IV PUSH 06/26/16 09:00 07/05/16 07:42 Potassium Chloride/Dextrose/ Sod Cl (D5-NS + KCl 20 Meq Inj) 1,000 ml @ 50 mls/hr Q20H IV 06/28/16 15:00 07/04/16 21:14 Morphine Sulfate (Morphine Inj) 4 mg Q4H PRN IV BREAKTHROUGH PAIN 07/02/16 10:30 07/05/16 09:29 Oxycodone/ Acetaminophen (Percocet 7.5-325 Mg) 1 tab Q4H PRN PO PAIN SCALE 3 TO 6 07/02/16 10:30 07/03/16 05:46 Oxycodone/ Acetaminophen (Percocet 10-325 Mg) 1 tab Q4H PRN PO PAIN SCALE 7 TO 10 07/02/16 10:30 07/05/16 07:43 Polyethylene Glycol (Miralax) 17 gm DAILY PO 07/04/16 17:15 07/05/16 07:43 Objective Remarks GENERAL: Frail female, lying in bed in nad. SKIN: Warm and dry. HEAD: Normocephalic. EYES: No injection or drainage. NECK: Supple, trachea midline. CARDIOVASCULAR: Regular rate and rhythm RESPIRATORY: anterior jama clear GASTROINTESTINAL: Abdomen soft, TTP, left upper and lower quadrant. ostomy bag in place. EXTREMITIES: No cyanosis NEUROLOGICAL: awake and alert, normal speech. moving all extremities. Assessment/Plan Problem List: (1) Metastatic breast cancer Status: Acute Plan: -- Original diagnosis she was found to be triple positive. -- Bone scan on 06/29 showed wilfred, however CT chest showed a metastatic lesion in her lung, liver and in the area of T6. Assessment 56 y/o female with history of metastatic breast cancer admitted with constipation Plan 1. CT ab/pelvis today for abdominal pain. 2. supportive care 3. continue XRT Attending Statement The exam, history, and the medical decision-making described in the above note were completed with the assistance of the mid-level provider. I reviewed and agree with the findings presented. I attest that I had a [id number] encounter with the patient on the same day, and personally performed and documented my assessment and findings in the medical record. Persistent left abdominal pain. +vomited once. Back pain improved. Will get CT abdomen to see if she has further progression of disease in her abdomen. I do not think she is ready for d/c yet. Magda Low July 05, 2016 10:00 Saul Mckeon MD July 05, 2016 16:51
[2016-07-05] MEDS ORDERED: IOHEXOL 350 MG/ML 10 ML VIAL (for RAD DIAG) IV ONE (11:17)
--- NOTE | 2016-07-05 11:43 | RADRPT ---
EXAM DATE/TIME: 07/05/2016 10:53 [place] COMPARISON: CT ABDOMEN & PELVIS W CONTRAST, June 24, 2016, 19:30. INDICATIONS : Abdominal pain. IV CONTRAST: 70 cc Omnipaque 350 (iohexol) IV ORAL CONTRAST: Partial prescribed oral contrast ingested. RADIATION DOSE: 4.56 CTDIvol (mGy) MEDICAL HISTORY : Metastatic, breast. Liver and lung lesions SURGICAL HISTORY : None. ENCOUNTER: Initial ACUITY: PAIN SCALE: 0/10 LOCATION: TECHNIQUE: Volumetric scanning of the abdomen and pelvis was performed. Using automated exposure control and ad justment of the mA and/or kV according to patient size, radiation dose was kept as low as reasonably achievable to obtain optimal diagnostic quality images. FINDINGS: LOWER LUNGS: Atelectasis versus consolidation is present in the right lower lobe and there is trace right pleural fluid. Pleural fluid has decreased in volume from the prior study. Right breast implant is present. LIVER: There are greater than 10 hypodense liver lesions identified measuring up to 3.4 x 3 cm. No new liver lesions are seen in the lesions present do not appear significantly changed from the study from 11 d ays ago. Gallbladder is decompressed. There is no dilation of the biliary tree. SPLEEN: Normal size without lesion. PANCREAS: Within normal limits. KIDNEYS: There is persistent delayed right nephrogram with severe hydronephrosis and hydroureter with caliber change in the right upper pelvis in the location of a small soft tissue density mass. There is a stab le 2.4 cm right mid renal cyst. There are multiple small low-density lesions in the left kidney that are too small to characterize. Multiple soft tissue masses remain present in the perinephric fat and retroperitoneal fat typical for metastatic disease. ADRENAL GLANDS: There is a stable right adrenal gland mass measuring approximately 4.5 x 2.6 cm. Left adrenal gland i s not definitively visualized. There is a clip adjacent to the upper pole the left kidney. VASCULAR: There is no aortic aneurysm. There is mild atherosclerotic disease. BOWEL/MESENTERY: Stomach and duodenum demonstrate no abnormality. Segment approximately July and is mildly dilated. Th ere is abnormal soft tissue mass in the left upper quadrant in the peritoneum and retroperitoneum dir ectly adjacent to the abnormal descending colon. Some of the small bowel loops appear to be tethered to this area suggesting partial obstruction from metastatic disease. The colon is now decompressed co mpared to the prior study and there is a right abdominal loop colostomy present. As described, the pr oximal to mid descending colon is abnormal. There is a small volume of free fluid in the abdomen and pelvis with mild peritoneal enhancement in the pelvis. There is no free intraperitoneal air. ABDOMINAL WALL: There is a right abdominal loop colostomy. RETROPERITONEUM: There are is an abnormal soft tissue mass in the right upper pelvis that obstructs the right ureter a nd measures approximately 2.5 x 1.8 cm. There is an abnormal right external iliac lymph node measurin g 1.4 x 1.3 cm. BLADDER: Urinary bladder contains air. REPRODUCTIVE: Within normal limits. INGUINAL: There is no lymphadenopathy or hernia. MUSCULOSKELETAL: No lytic or blastic lesions are seen. CONCLUSION: 1. There is persistent urinary obstruction on the right with severe right hydronephrosis and hydroure ter caused by distal ureteral obstruction secondary to a 2.5 cm right pelvic soft tissue mass, likely a metastatic deposit. 2. Colon is now decompressed following loop colostomy. However, there are peritoneal and retroperiton eal metastatic lesions in the left upper quadrant causing tethering and partial obstruction of the pr oximal jejunum. The adjacent descending colon is also abnormal similar to the prior study. 3. There is a small volume of free fluid in the abdomen and pelvis. In the pelvis there is mild perit webster thickening and enhancement. 4. Stable metastatic disease within the liver and right adrenal gland. Alberto Wilson MD on July 05, 2016 at 11:29 Board Certified Radiologist. This report was verified electronically.
[2016-07-05 12:00] VITALS: BP 115/70; PULSE 114; RESP 16; TEMP 97.3; O2SAT 98
[2016-07-05 14:52] LABS: AUTOMATED NEUTROPHIL # 18.9 TH/MM3 (1.8-7.7); HEMATOCRIT 32.1 % (35.0-46.0); LYMPH % 2.3 % (9.0-44.0); LYMPHOCYTE # 0.4 TH/MM3 (1.0-4.8); MEAN CELL VOLUME 86.9 FL (80.0-100.0); MEAN CORPUSCULAR HEMOGLOBIN 28.3 PG (27.0-34.0); MEAN CORPUSCULAR HGB CONC 32.5 % (32.0-36.0); MONO % 2.1 % (0.0-8.0); NEUT % 95.6 % (16.0-70.0); PLATELET COUNT 126 TH/MM3 (150-450); RED BLOOD COUNT 3.69 MIL/MM3 (4.00-5.30); RED CELL DISTRIBUTION WIDTH 23.4 % (11.6-17.2); WHITE BLOOD COUNT 19.8 TH/MM3 (4.0-11.0)
[2016-07-05 14:53] LABS: HEMO FLAGS AUTO DIFF
[2016-07-05 15:25] LABS: BANDS 19 % (0-6); OVALOCYTES 1+ (NORMAL); PLATELET ESTIMATE SMEAR LOW (NORMAL); PLATELET MORPHOLOGY NORMAL (NORMAL); POLYS (SEG NEUTROPHILS) 77 % (16-70); SCAN/DIFF FINAL DIFF MANUAL; TOXIC GRANULATION 1+ (NORMAL); TOXIC VACUOLATION PRESENT (NONE SEEN); WBC DIFF SAMPLE 100
[2016-07-05 16:00] VITALS: BP 104/61; PULSE 108; RESP 17; TEMP 96; O2SAT 96
[2016-07-05] MEDS: D5-NS + KCL 20 MEQ INJ 1,000 ML IV SCH (16:26)
[2016-07-05] MEDS: ONDANSETRON HCL 4 MG/2 ML VIAL IVP PRN ×2 (18:37→20:50)
[2016-07-05 20:00] VITALS: BP 102/57; PULSE 112; RESP 16; TEMP 97.8; O2SAT 97
--- NOTE | 2016-07-05 23:25 | HHI.PR ---
Subjective Remarks C/R Surg POD afebrile, VSS UO good flash small PO stoma functioning Objective - Vital Signs Date Time Temp Pulse Resp B/P Pulse Ox O2 Delivery O2 Flow Rate FiO2 07/05/16 20:00 97.8 112 16 102/57 97 Result Diagram: 07/05/16 1402 07/04/16 1122 Objective Remarks PE alert Abd - softer, still tympany, stoma pink, stool in bag A/P Assessment and Plan Imp: OOB try PO slowly CT reviewed - pt known to have mets in abd - no real surprise to see partial obstruction, will need to consider hospice at some point Philippe Ovalle MD July 05, 2016 23:25
[2016-07-06] VITALS: BP 118/76; PULSE 109; RESP 16; TEMP 97.8; O2SAT 96
[2016-07-06] MEDS: METOCLOPRAMIDE HCL 10 MG/2 ML VIAL IV PUSH SCH ×2 (00:18→06:08)
[2016-07-06] MEDS: ONDANSETRON HCL 4 MG/2 ML VIAL IVP PRN ×2 (04:01→13:29)
[2016-07-06] MEDS: MORPHINE SULFATE 4 MG/ML INJ IV PRN (04:27)
[2016-07-06 05:32] LABS: AUTOMATED NEUTROPHIL # 15.7 TH/MM3 (1.8-7.7); BASOPHIL % 0.2 % (0.0-2.0); EOSINOPHIL % 0.1 % (0.0-4.0); HEMATOCRIT 32.8 % (35.0-46.0); LYMPH % 3.9 % (9.0-44.0); LYMPHOCYTE # 0.7 TH/MM3 (1.0-4.8); MEAN CELL VOLUME 86.5 FL (80.0-100.0); MEAN CORPUSCULAR HEMOGLOBIN 28.4 PG (27.0-34.0); MEAN CORPUSCULAR HGB CONC 32.8 % (32.0-36.0); MONO % 4.5 % (0.0-8.0); NEUT % 91.3 % (16.0-70.0); PLATELET COUNT 163 TH/MM3 (150-450); RED BLOOD COUNT 3.79 MIL/MM3 (4.00-5.30); RED CELL DISTRIBUTION WIDTH 23.4 % (11.6-17.2); WHITE BLOOD COUNT 17.2 TH/MM3 (4.0-11.0)
[2016-07-06 05:36] LABS: APTT (PATIENT) 25.7 SEC (24.3-30.1); PROTHROMBIN TIME - PATIENT 11.2 SEC (9.8-11.6)
[2016-07-06 05:42] LABS: HEMO FLAGS AUTO DIFF
[2016-07-06 05:57] LABS: BICARBONATE 25.4 MEQ/L (21.0-32.0); INDIRECT BILIRUBIN 0.5 MG/DL (0.0-0.8); POTASSIUM 3.6 MEQ/L (3.5-5.1); TOTAL BILIRUBIN ADULT 0.7 MG/DL (0.2-1.0)
[2016-07-06 06:52] LABS: BANDS 1 % (0-6); NEUTROPHIL # MANUAL DIFF 15.8 TH/MM3 (1.8-7.7); POLYS (SEG NEUTROPHILS) 91 % (16-70); WBC DIFF SAMPLE 100
[2016-07-06 06:53] LABS: KERATOCYTES OCC (NORMAL); PLATELET ESTIMATE SMEAR NORMAL (NORMAL); PLATELET MORPHOLOGY NORMAL (NORMAL); SCAN/DIFF FINAL DIFF MANUAL
[2016-07-06 08:00] VITALS: BP 103/65; PULSE 108; RESP 18; TEMP 96.2; O2SAT 97
[2016-07-06] MEDS: PANTOPRAZOLE SODIUM 40 MG VIAL IV PUSH SCH (08:24)
[2016-07-06] MEDS: DEXAMETHASONE SOD PHOS 4 MG/ML VIAL IV PUSH SCH (08:25)
[2016-07-06] MEDS: SODIUM CHLORIDE 0.9% FLUSH 10 ML FLUSH IV FLUSH SCH ×2 (08:25→20:30)
[2016-07-06] MEDS: POLYETHYLENE GLYCOL 17 GM PKG PO SCH (08:26)
[2016-07-06] MEDS: oxyCODONE/ACETAMINOPHEN 10 MG/325 MG TAB PO PRN (08:33)
[2016-07-06] MEDS ORDERED: MORPHINE SULFATE 4 MG/ML INJ IV PRN (09:01)
[2016-07-06] MEDS ORDERED: MORPHINE SULFATE 4 MG/ML INJ IV PUSH PRN (09:15)
--- NOTE | 2016-07-06 10:35 | HHI.PR ---
Subjective Remarks C/R Surg POD afebrile, VSS UO adeq flash small PO stoma functioning Objective - Vital Signs Date Time Temp Pulse Resp B/P Pulse Ox O2 Delivery O2 Flow Rate FiO2 07/06/16 08:00 96.2 108 18 103/65 97 Result Diagram: 07/06/16 0500 07/06/16 0500 Objective Remarks PE alert Abd - softer, stoma pink, stool in bag A/P Assessment and Plan Imp: OOB try PO slowly RT today DC plans? Philippe Ovalle MD July 06, 2016 10:35
--- NOTE | 2016-07-06 11:11 | HHI.PR ---
Subjective Remarks Follow up abdominal pain. Patient still having pain. Has had nausea/vomiting, especially with oral pain medication. Going for radiation therapy again today. Objective Vitals Vital Signs Date Time Temp Pulse Resp B/P Pulse Ox O2 Delivery O2 Flow Rate FiO2 07/06/16 08:00 96.2 108 18 103/65 97 07/06/16 00:00 97.8 109 16 118/76 96 07/05/16 20:00 97.8 112 16 102/57 97 07/05/16 16:00 96.0 108 17 104/61 96 07/05/16 12:00 97.3 114 16 115/70 98 I/O 07/05/16 07/05/16 07/05/16 07/06/16 07/06/16 07/06/16 07:00 15:00 23:00 07:00 15:00 23:00 Intake Total 688 ml 1293 ml 689 ml 180 ml Output Total 800 ml 550 ml Balance -112 ml 1293 ml 139 ml 180 ml Intake Oral 280 ml 960 ml 360 ml 180 ml IV Total 408 ml 333 ml 329 ml Output Urine Total 800 ml 400 ml Stool Total 150 ml # Voids 3 2 # Bowel Movements 0 Result Diagram: 07/06/16 0500 07/06/16 0500 Imaging Last Impressions Abdomen/Pelvis CT 07/05/16 0000 Signed Impressions: Service Date/Time: Tuesday, July 05, 2016 10:53 - CONCLUSION: 1. There is persistent urinary obstruction on the right with severe right hydronephrosis and hydroureter caused by distal ureteral obstruction secondary to a 2.5 cm right pelvic soft tissue mass, likely a metastatic deposit. 2. Colon is now decompressed following loop colostomy. However, there are peritoneal and retroperitoneal metastatic lesions in the left upper quadrant causing tethering and partial obstruction of the proximal jejunum. The adjacent descending colon is also abnormal similar to the prior study. 3. There is a small volume of free fluid in the abdomen and pelvis. In the pelvis there is mild peritoneal thickening and enhancement. 4. Stable metastatic disease within the liver and right adrenal gland. Alberto Wilson MD Thoracic Spine MRI 06/30/16 0000 Signed Impressions: Service Date/Time: June 13:29 - CONCLUSION: 1. Osseous metastatic disease to T6 vertebral body extending into the pedicle and posterior elements on the left. There is minimal epidural soft tissue component but no significant stenosis Pasquale Mcallister MD Chest CT 06/29/16 0000 Signed Impressions: Service Date/Time: Wednesday, June 29, 2016 12:54 - CONCLUSION: 1. Findings of pulmonary hepatic and osseous metastatic disease. 2. The mass in the thoracic spine is concerning for spinal stenosis and contrast enhanced MRI is recommended Pasquale Mcallister MD Bone Scan Nuclear Medicine 06/29/16 0000 Signed Impressions: Service Date/Time: Wednesday, June 29, 2016 12:54 - CONCLUSION: 1. No definite findings to indicate metastatic disease to bone are identified. 2. The area of increased uptake in the right chest is the residual tracer within the patient' s port. Joaquin Guzman MD Abdomen X-Ray 06/24/16 0000 Signed Impressions: Service Date/Time: Friday, June 24, 2016 23:44 - CONCLUSION: 1. NG tube appears to be in the mid to distal esophagus. Recommend advancing the NG tube approximately 10 cm. 2. Hydronephrosis of the right collecting system with what appears to be obstruction at the mid right ureter. 3. Nonspecific air-filled loops of small and large bowel throughout the abdomen. Kalia Rasmussen MD Objective Remarks General: Cachectic female in no acute distress. Heart: Regular rate and rhythm. No murmur. Lungs: Clear to auscultation bilaterally. No wheezes, rales, or rhonchi. Breathing is nonlabored. Abdomen: Soft, diffuse tenderness, nondistended. Ostomy noted. Extremities: No lower extremity edema. SCDs. Psych: Alert and oriented. Skin: Stage IV decubitus ulcer overlying the coccyx. Procedures 06/25/16 exploratory laparotomy with diverting loop transverse colostomy Urinary Catheter: No Vascular Central Line Catheter: No A/P Problem List: (1) Metastatic breast cancer ICD Code: C50.919 Status: Acute (2) Urethral obstruction ICD Code: N36.8 Status: Acute (3) Bowel obstruction ICD Code: K56.60 Status: Acute (4) Hypercalcemia ICD Code: E83.52 Status: Acute (5) Hypotension ICD Code: I95.9 Status: Acute (6) Bandemia ICD Code: D72.825 Status: Acute Assessment and Plan 1. Metastatic breast cancer: There is evidence of metastases to the [employer]ER, liver, colon. Status post radiation therapy. Appreciate oncology recommendations. Continue Decadron. CT of the chest shows metastatic disease. Bone scan report noted. MRI of the thoracic spine shows metastatic disease to T6 vertebral body. Patient is now receiving palliative radiation treatment. 2. Bowel obstruction: Status post exploratory laparotomy with diverting colostomy on 06/25/16. Regular diet as tolerated. Abdominal pain worsening today. CT abdomen/pelvis shows metastatic disease. 3. Ureteral obstruction: Appreciate urology recommendations. 4. Hypercalcemia: Likely secondary to metastases. Patient given a dose of IV pamidronate by oncology. 5. Bandemia: Improving. Blood cultures are negative. Possible intra-abdominal infection treated with ciprofloxacin and metronidazole. 6. DVT prophylaxis: SCDSTEPH richards. 7. Hypotension on admission: BP low, but stable. 8. Hypokalemia: Improved. Recheck labs. 9. Stage IV decubitus ulcer over coccyx: Continue wound care. 10. Poor prognosis: Consult palliative care. Discussed with Dr. Ovalle. Discharge Planning Discharge on hold due to worsening abdominal pain. Eddie Posada MD July 06, 2016 11:11
[2016-07-06] MEDS: MORPHINE SULFATE 4 MG/ML INJ IV PUSH PRN ×3 (11:39→22:46)
[2016-07-06 12:00] VITALS: BP 102/68; PULSE 113; RESP 20; TEMP 95.9; O2SAT 98
[2016-07-06] MEDS ORDERED: METOCLOPRAMIDE HCL 10 MG/2 ML VIAL IV PUSH PRN (12:00)
[2016-07-06] MEDS ORDERED: PAMIDRONATE INJ 90 MG in SODIUM CHLORID 0.9% 500 ML INJ 500 ML IV ONE (13:00)
[2016-07-06] MEDS: D5-NS + KCL 20 MEQ INJ 1,000 ML IV SCH (13:28)
--- NOTE | 2016-07-06 14:21 | PD.CONS ---
Consult Service Palliative Care . Consult Requested By Dr. Posada . Primary Care Physician Eddie Sharif M.D. . Reason for Consultation a. To assist with evaluation and management of symptoms including: abdominal pain; back pain; nausea; vomiting; fatigue b. To assist medical decision maker(s) with: better understanding of current medical conditions; weighing benefits/burdens of medical treatment options; making medical treatment decisions. . HPI History of Present Illness Ms. Anderson is an unfortunate 56-year-old female with a known history of metastatic breast cancer who presented to the [facility] Emergency Department on 06/24/16 complaining of a 10 day history of constipation which persisted in spite of [id number] oral remedies and enemas. The constipation was accompanied by abdominal pain more apparent in the lower quadrants. There were a couple of episodes of vomiting. There is no reported blood in the bowel movements. At time of presentation the patient was known to have had metastatic disease involving adrenals, bone, brain, and bowel. The patient was still receiving active cancer directed treatments. Her last chemotherapy was held due to hypotension. She was instructed to go to the emergency department to make sure she did not have an obstruction. The patient was first diagnosed with breast cancer in 2009. At time of diagnosis the tumor was "triple positive.". She received neoadjuvant chemotherapy followed by surgical resection in turn followed by radiation to the chest wall. She was found to have metastatic disease involving the left adrenal gland in 2011. She underwent more chemotherapy and then and a left adrenalectomy in 2012. In spite of additional chemotherapy disease continued to progress. She went on to develop brain metastases. She underwent brain radiation which she completed in May. She is also known to have bone, liver, and abdominal metastases. 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 At time of initial emergency department presentation, the patient was afebrile. She was hypotensive with initial blood pressure of 87/50. She was tachycardic with a heart rate of 120. Physical examination by the emergency division officer weapons department was remarkable for some abdominal tenderness particularly in the lower quadrants. Abdomen was nondistended and there was no organomegaly. Initial diagnostic testing revealed the following: * CBC showed WBC 3.1; hemoglobin 11.3; platelet count 253. There were 32% band neutrophils. * Coagulation profile showed PT 11.3; INR 1.0; PTT 33.5 * Serum chemistry panel showed sodium 132; potassium 3.6; chloride 93; CO2 29.2 ; anion gap 10; BUN 12; creatinine 0.33; GFR 206; glucose 75; lactic acid 1.2; calcium 13.0 * Liver function tests showed bilirubin 1.1; AST 33; ALT 22; alkaline phosphatase 158; total protein 6.2; lipase 2.7 * Urinalysis was remarkable only for trace protein * CT of the abdomen and pelvis showed widespread metastatic disease. Radiologist felt there was likely a distal bowel obstruction and right ureteral obstruction. The patient was given intravenous fluids and analgesics in the emergency department. Colorectal surgery was consulted as well as was urology. The patient went to exploratory laparotomy and underwent diverting loop transverse colostomy by Dr. Ovalle on 06/25/16. Nephrology did not believe any intervention was necessary at this time. They did feel that if renal function continued to deteriorate she might require nephrostomy tube versus ureteral stent. While recovering from her procedure, the patient developed progressive pain in the upper back. Imaging studies revealed a metastatic lytic lesion at the level of T6. Radiation therapy was consulted and treatments begun. The patient was getting ready for discharge when she began having abdominal pain again associated with nausea/vomiting. CT of the abdomen/pelvis on 07/05 showed: * Persistent urinary obstruction on the right with severe right sided hydronephrosis and hydroureter * : Was now decompressed following the diverting colostomy. However the radiologist noted peritoneal and retroperitoneal metastatic lesions in the left upper quadrant causing tethering and partial obstruction of the proximal jejunum * Metastatic disease in the liver and right adrenal gland was unchanged The patient's GI symptoms seem to feel worse with oral opiates. She now has an order for morphine sulfate 2- 4 mg IV every 3 hours PRN pain. At time of my visit, patient is awake, alert, and able to converse. She tells me she is getting abdominal pain that reaches #9-10. It tends to be worse later on in the day. The IV morphine brings it down to #2-3 for a couple of hours. It is a cramping type of pain and is worse in the lower abdomen. Eating /drinking exacerbates it. No radiation. She also has back pain that is more constant. She continues to c/o nausea/vomiting after eating/drinking. She has not been able to keep much down for about 1.5 days. . . Function/Cognitive Trajectory Patient reports that she was quite active up until the time her abdominal pain/ constipation became an issue. 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 She had lost about 15 lbs over the last months. . Review of Systems Constitutional: COMPLAINS OF: Fatigue, Weight loss, Pain, Generalized weakness , DENIES: Fever, Chills Endocrine: DENIES: Polydipsia, Polyuria, Polyphagia Eyes: COMPLAINS OF: Vision loss (wears reading glasses), DENIES: Blurred vision Ears, nose, mouth, throat: DENIES: Hearing loss, Throat pain, Epistaxis Respiratory: DENIES: Apneas, Cough, Wheezing, Hemoptysis, Sputum production, Shortness of breath Cardiovascular: COMPLAINS OF: Dyspnea on Exertion, Claudication, DENIES: Chest pain, Palpitations, Lower Extremity Edema Gastrointestinal: COMPLAINS OF: Abdominal pain, Constipation, Diarrhea ( Diarrhea preceded her constipation. ), Nausea, Vomiting, DENIES: Black stools, Bloody stools Genitourinary: DENIES: Urinary frequency, Urinary incontinence, Hematuria, Dysuria Musculoskeletal: COMPLAINS OF: Back pain, DENIES: Joint pain, Joint Swelling, Neck pain Integumentary: DENIES: Pruritus Hematologic/Lymphatics: COMPLAINS OF: Bruising, DENIES: Prolonged bleed w/ proced Immunologic/Allergic: DENIES: Urticaria Neurologic: DENIES: Abnormal gait, Localized weakness, Seizures, Tremor Psychiatric: DENIES: Anxiety, Confusion, Depression Past Family Social History Coded Allergies: No Known Allergies (Unverified , 06/24/16) Past Medical History Breast cancer metastatic to Brain, Liver and Colon Past Surgical History * [id number] placement * Lumpectomy followed by double mastectomy in 2009 * Breast reconstructive surgery * Left adrenalectomy * Removal of left breast implant * Diverting colostomy during this admission . Reported Medications Prehospitalization medications included the following: Aspirin 81 Mg Chew 81 Mg CHEW DAILY Dexamethasone 4 Mg Tab 4 Mg PO DAILY Vitamin D (Cholecalciferol) 1,000 Unit Tab 1,000 Units PO DAILY . Current Medications Medications (Trade) Dose Ordered Sig/Nico Route Start Time Stop Time Status Last Admin (NS Flush) 2 ml UNSCH PRN IV FLUSH 06/24/16 21:00 (NS Flush) 2 ml BID IV FLUSH 06/24/16 21:00 07/05/16 20:50 (Zofran Inj) 4 mg Q6H PRN IVP 06/24/16 21:00 07/06/16 13:29 (Decadron Inj) 4 mg DAILY IV PUSH 06/25/16 09:00 07/06/16 08:25 (Protonix Inj) 40 mg DAILY IV PUSH 06/26/16 09:00 07/06/16 08:24 Naloxone HCl 0.4 mg 0.4 mg UNSCH PRN IV 06/25/16 15:00 (D5-NS + KCl 20 Meq Inj) 1,000 ml @ 50 mls/hr Q20H IV 06/28/16 15:00 07/06/16 13:28 (Miralax) 17 gm DAILY PO 07/04/16 17:15 07/05/16 07:43 (Morphine Inj) 2 mg Q3HR PRN IV 07/06/16 09:01 (Morphine Inj) 2 mg Q3H PRN IV PUSH 07/06/16 09:15 (Morphine Inj) 4 mg Q3H PRN IV PUSH 07/06/16 09:15 07/06/16 11:39 Metoclopramide HCl 10 mg 10 mg Q6HR PRN IV PUSH 07/06/16 12:00 (Aredia Inj/NS 500 ml Inj) 500 ml @ 125 mls/hr ONCE ONCE IV 07/06/16 13:00 07/06/16 16:59 07/06/16 13:27 . Family History The patient's mother of an aneurysm. The patient's father of applications from alcoholism. A younger sister was diagnosed with colon cancer in her 40s. The patient has no children. . Substance Use Tobacco: Lifetime nonsmoker. Alcohol: Occasional alcoholic drink. Prescription med abuse: No known prescription drug abuse Illicits: No known use of illicits . Psychosocial History Originally from [place]. Has lived in [place] since 2005. High school education. 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 Was still working several hours a week from home up until this hospitalization. once. Has been together with her for 22 years and for 19 years. No children. Patient has 2 sisters and one brother. She is the oldest of the siblings. Sister-- Renetta -- is here now. . Spiritual/Cultural Factors Patient was raised in a [employer] tradition. She is now a member of a non- latter day temple. She is receiving spiritual support from her own attending psychiatrist and temple members. . Living Will: Never completed Health Care Surrogate: Never completed Durable Power of Antenna Specialist: Never completed Date completed: Never completed an advance directive. . Health Care Surrogate(s): No written designation of health care surrogate. Has verbally told me that she wants her to be her primary surrogate and her sister -- (Renetta Hearn ) -- to be her alternate. . Documented care wishes: No written documentation of health care goals/preferences. . Today's verbally stated goals: Patient is painful and exhausted and she wants to be comfortable. She seems open to hospice care, but is not quite ready to "give up completely." She holds on to the idea that she might be able to get stronger and get more cancer directed treatments. For that reason she is not ready to accept DNR status. . Family/friends goals: and sister appear to support patient's decisions. . Ethical and Legal Issues Patient is currently capacitated to make her own health care decisions. . Physical Exam Vital Signs Date Time Temp Pulse Resp B/P Pulse Ox O2 Delivery O2 Flow Rate FiO2 07/06/16 12:00 95.9 113 20 102/68 98 07/06/16 08:00 96.2 108 18 103/65 97 07/06/16 00:00 97.8 109 16 118/76 96 07/05/16 20:00 97.8 112 16 102/57 97 07/05/16 16:00 96.0 108 17 104/61 96 . 07/05/16 07/06/16 19:00 07:00 Intake Total 1293 ml 869 ml Output Total 550 ml Balance 1293 ml 319 ml Intake Oral 960 ml 540 ml IV Total 333 ml 329 ml Output Urine Total 400 ml Stool Total 150 ml # Voids 3 2 # Bowel Movements 0 . Exam CONSTITUTIONAL/GENERAL: This is a pale, thin female appearing older than her stated age. TUBES/LINES/DRAINS: Colostomy; [id number] right chest; SKIN: No jaundice, rashes, or lesions. Few scattered ecchymoses on extremities. Abdominal surgical wound healing. Skin temperature appropriate. Not diaphoretic. HEAD: Atraumatic. Normocephalic. EYES: Pupils equal and round and reactive. Extraocular motions intact. No scleral icterus. No injection or drainage. Fundi not examined. ENT: Hearing grossly normal. Nose without bleeding or purulent drainage. Throat without visible erythema, exudates, masses, or lesions. Mucous membranes dry. NECK: Trachea midline. Supple, nontender. No palpable thyroid enlargement or nodularity. CARDIOVASCULAR: Regular rate and rhythm without murmurs, gallops, or rubs. No JVD. Peripheral pulses symmetric. RESPIRATORY/CHEST: Symmetric, unlabored respirations. Clear to auscultation. Breath sounds equal bilaterally. No wheezes, rales, or rhonchi. GASTROINTESTINAL: Abdomen soft, nondistended. There is diffuse mild tenderness in the lower quadrants. Colostomy bag with dark brown stool. No hepato- splenomegaly, or palpable masses. No guarding. Bowel sounds present but hypoactive. GENITOURINARY: Without palpable bladder distension. MUSCULOSKELETAL: Extremities without clubbing, cyanosis, or edema. No joint tenderness or effusion noted. No calf tenderness. No mottling. LYMPHATICS: No palpable cervical or supraclavicular adenopathy. NEUROLOGICAL: Awake and alert. Motor and sensory grossly within normal limits. Follows commands. Cognitively sharp. Moves all extremities. PSYCHIATRIC: No obvious anxiety/depression. No apparent hallucinations or other psychotic thought process. Appropriately tearful when talking about her own mortality. . Diagnostic Tests Laboratory Laboratory Tests Test 07/04/16 07/05/16 07/06/16 11:22 14:02 05:00 Sodium Level 132 MEQ/L 136 MEQ/L (136-145) (136-145) Potassium Level 5.0 MEQ/L 3.6 MEQ/L (3.5-5.1) (3.5-5.1) Chloride Level 100 MEQ/L 102 MEQ/L (98-107) (98-107) Carbon Dioxide Level 23.5 MEQ/L 25.4 MEQ/L (21.0-32.0) (21.0-32.0) Anion Gap 9 MEQ/L (5-15) 9 MEQ/L (5-15) Blood Urea Nitrogen 6 MG/DL (7-18) 6 MG/DL (7-18) Creatinine 0.25 MG/DL 0.19 MG/DL (0.50-1.00) (0.50-1.00) Estimat Glomerular Filtration 284 ML/MIN 390 ML/MIN Rate (>89) (>89) Random Glucose 99 MG/DL 91 MG/DL (74-106) (74-106) Calcium Level 11.0 MG/DL 12.3 MG/DL (8.5-10.1) (8.5-10.1) White Blood Count 19.8 TH/MM3 17.2 TH/MM3 (4.0-11.0) (4.0-11.0) Red Blood Count 3.69 MIL/MM3 3.79 MIL/MM3 (4.00-5.30) (4.00-5.30) Hemoglobin 10.4 GM/DL 10.7 GM/DL (11.6-15.3) (11.6-15.3) Hematocrit 32.1 % 32.8 % (35.0-46.0) (35.0-46.0) Mean Corpuscular Volume 86.9 FL 86.5 FL (80.0-100.0) (80.0-100.0) Mean Corpuscular Hemoglobin 28.3 PG 28.4 PG (27.0-34.0) (27.0-34.0) Mean Corpuscular Hemoglobin 32.5 % 32.8 % Concent (32.0-36.0) (32.0-36.0) Red Cell Distribution Width 23.4 % 23.4 % (11.6-17.2) (11.6-17.2) Platelet Count 126 TH/MM3 163 TH/MM3 (150-450) (150-450) Mean Platelet Volume 7.7 FL 7.5 FL (7.0-11.0) (7.0-11.0) Neutrophils (%) (Auto) 95.6 % 91.3 % (16.0-70.0) (16.0-70.0) Lymphocytes (%) (Auto) 2.3 % 3.9 % (9.0-44.0) (9.0-44.0) Monocytes (%) (Auto) 2.1 % (0.0-8.0) 4.5 % (0.0-8.0) Eosinophils (%) (Auto) 0.0 % (0.0-4.0) 0.1 % (0.0-4.0) Basophils (%) (Auto) 0.0 % (0.0-2.0) 0.2 % (0.0-2.0) Neutrophils # (Auto) 18.9 TH/MM3 15.7 TH/MM3 (1.8-7.7) (1.8-7.7) Lymphocytes # (Auto) 0.4 TH/MM3 0.7 TH/MM3 (1.0-4.8) (1.0-4.8) Monocytes # (Auto) 0.4 TH/MM3 0.8 TH/MM3 (0-0.9) (0-0.9) Eosinophils # (Auto) 0.0 TH/MM3 0.0 TH/MM3 (0-0.4) (0-0.4) Basophils # (Auto) 0.0 TH/MM3 0.0 TH/MM3 (0-0.2) (0-0.2) CBC Comment AUTO DIFF AUTO DIFF Differential Total Cells 100 100 Counted Neutrophils % (Manual) 77 % (16-70) 91 % (16-70) Band Neutrophils % 19 % (0-6) 1 % (0-6) Lymphocytes % 1 % (9-44) 5 % (9-44) Monocytes % 3 % (0-8) 3 % (0-8) Neutrophils # (Manual) 19.0 TH/MM3 15.8 TH/MM3 (1.8-7.7) (1.8-7.7) Differential Comment FINAL DIFF FINAL DIFF MANUAL MANUAL Toxic Granulation 1+ (NORMAL) Toxic Vacuolation PRESENT (NONE SEEN) Platelet Estimate LOW (NORMAL) NORMAL (NORMAL) Platelet Morphology Comment NORMAL NORMAL (NORMAL) (NORMAL) Ovalocytes 1+ (NORMAL) Keratocytes OCC (NORMAL) Prothrombin Time 11.2 SEC (9.8-11.6) Prothromb Time International 1.0 RATIO Ratio Activated Partial 25.7 SEC Thromboplast Time (24.3-30.1) Fibrinogen 531 mg/dL (227-377) Protein Corrected Calcium MG/DL (8.5-10.1) Total Bilirubin 0.7 MG/DL (0.2-1.0) Direct Bilirubin 0.2 MG/DL (0.0-0.2) Indirect Bilirubin 0.5 MG/DL (0.0-0.8) Aspartate Amino Transf 32 U/L (15-37) (AST/SGOT) Alanine Aminotransferase 13 U/L (10-53) (ALT/SGPT) Alkaline Phosphatase 123 U/L (45-117) Total Protein 6.0 GM/DL (6.4-8.2) Albumin 2.3 GM/DL (3.4-5.0) . Result Diagram: 07/06/16 0500 07/06/16 0500 Microbiology Blood cultures from 06/25/16 showed no growth . Imaging Last Impressions Abdomen/Pelvis CT 07/05/16 0000 Signed Impressions: Service Date/Time: Tuesday, July 05, 2016 10:53 - CONCLUSION: 1. There is persistent urinary obstruction on the right with severe right hydronephrosis and hydroureter caused by distal ureteral obstruction secondary to a 2.5 cm right pelvic soft tissue mass, likely a metastatic deposit. 2. Colon is now decompressed following loop colostomy. However, there are peritoneal and retroperitoneal metastatic lesions in the left upper quadrant causing tethering and partial obstruction of the proximal jejunum. The adjacent descending colon is also abnormal similar to the prior study. 3. There is a small volume of free fluid in the abdomen and pelvis. In the pelvis there is mild peritoneal thickening and enhancement. 4. Stable metastatic disease within the liver and right adrenal gland. Alberto Wilson MD Thoracic Spine MRI 06/30/16 0000 Signed Impressions: Service Date/Time: June 13:29 - CONCLUSION: 1. Osseous metastatic disease to T6 vertebral body extending into the pedicle and posterior elements on the left. There is minimal epidural soft tissue component but no significant stenosis Pasquale Mcallister MD Chest CT 06/29/16 0000 Signed Impressions: Service Date/Time: Wednesday, June 29, 2016 12:54 - CONCLUSION: 1. Findings of pulmonary hepatic and osseous metastatic disease. 2. The mass in the thoracic spine is concerning for spinal stenosis and contrast enhanced MRI is recommended Pasquale Mcallister MD Bone Scan Nuclear Medicine 06/29/16 0000 Signed Impressions: Service Date/Time: Wednesday, June 29, 2016 12:54 - CONCLUSION: 1. No definite findings to indicate metastatic disease to bone are identified. 2. The area of increased uptake in the right chest is the residual tracer within the patient' s port. Joaquin Guzman MD Abdomen X-Ray 06/24/16 0000 Signed Impressions: Service Date/Time: Friday, June 24, 2016 23:44 - CONCLUSION: 1. NG tube appears to be in the mid to distal esophagus. Recommend advancing the NG tube approximately 10 cm. 2. Hydronephrosis of the right collecting system with what appears to be obstruction at the mid right ureter. 3. Nonspecific air-filled loops of small and large bowel throughout the abdomen. Kalia Rasmussen MD . Procedures 06/25/16 exploratory laparotomy with diverting loop transverse colostomy . Patient/Family Conference Present at Family Conference: Patient, spouse, sister (Renetta Hearn). . Family Conference Time (mins): 50 Family Conference Location: Bedside Issues Discussed: * Palliative care role, purpose, approach * Additional medical, psychosocial, and spiritual history * Patients general health, functional status, and cognitive changes in the months leading up to the current hospitalization * Patient/family understanding of the current medical problems * Patient/family understanding of prognosis * Patients goals of medical treatment * Current medical treatment options and benefits/burdens of those options * Likely scenarios comparing ongoing aggressive care with a transition to comfort measures only * Questions answered to the best of my ability * Palliative care contact information provided . Assessment and Plan Disease Oriented Problem List: (1) Metastatic breast cancer (2) Colonic obstruction (3) SBO (small bowel obstruction) (4) Hypercalcemia (5) Hypotension (6) Anemia (7) Hypoalbuminemia Symptom Scale: (1) Pain 0-10 Scale: 9 Comment: Has both abdominal pain and back pain. Levels get up to #9-10. Parenteral morphine will bring pain levels down to #2-3. Some of her discomfort may also have to do with hypercalcemia. . (2) Nausea 0-10 Scale: Unable to quantify Comment: Occurs after most PO intake. . (3) Vomiting 0-10 Scale: Unable to quantify Comment: Occurs after most PO intake. . (4) Generalized weakness 0-10 Scale: Unable to quantify Pertinent Non-Medical Issues Psychosocial: Normally lives at home with her who continues to work information management manager. Spiritual: Patient was raised in a [employer] tradition. She is now a member of a non-latter day temple. She is receiving spiritual support from her own attending psychiatrist and temple members. Legal: No advance directives. Has verbally requested that her serve as health care surrogate and that her sister -- Renetta Hearn -- serve as alternate health care surrogate. Ethical issues impacting care: Patient is capacitated to make her own health care decisions. . Important Contacts * Bharat Luciano (spouse and primary health care surrogate) [phone] * Renetta Hearn (sister and alternate health care surrogate) [phone] . Prognosis Patient has battled breast cancer for 8-9 years. She has metastatic disease to liver, adrenals, brain, bone, bowel, peritoneum. In spite of diverting colostomy, appears to be having some small bowel partial obstruction causing pain/nausea/vomiting. Her current performance status is such that she would not be able to tolerate chemotherapy at this time. She is declining a feeding tube. If she continues to have persistent nausea/vomiting from a partial small bowel obstruction and she does not want tube feedings , she will decline rapidly. Life expectancy is probably in the order of 1-2 weeks if she is not able to hold onto fluids and does not want IVs. If she is primarily wanting comfort measures at this time, she is very appropriate for hospice. . Code Status: Full Code Plan == Code Status: Full Code. Patient does not want a feeding tube, but is not yet ready to accept DNR status. == Decision making: Patient is capacitated to make her own decisions. Should she become incapacitated, she has asked that her be her primary heatlh care surrogate and that her sister -- Renetta Hearn -- serve as her alternate health care surrogate. == Goals of medical treatment: Patient becomes understandably tearful when discussing goals. She has battled the cancer a long time. She is painful and she is tired. She wants to be comfortable at this time and she doesn't want additional tubes (e.g. feeding tube). However, there is a part of her that is hoping she might grow stronger and be able to tolerate more chemo. For this reason she is not ready to accept DNR status. == Pain: Her pain is mostly in the abdomen and the low back. The former is probably due to partial bowel obstruction. The latter is probably due to bony metastatic disease. Pain levels reach #9-10. The IV morphine brings it down as low as #2-3 for about 2 hours. If there is a decision to enroll with hospice , will adjust pain medications through hospice. If hospice is declined, would probably start a fentanyl patch at 12.5 mcg/hr. == Nausea/vomiting: She has had difficulty holding things down for about 1.5 days. Even PO meds seem to prompt N/V at this time . Recommend doubling the dexamethasone dose to 8 mg /day. If we can further diminish any elli-tumor swelling/inflammation, it may be enough resolve the likely partial small bowel obstruction. Also the dexamethasone has its own anti-emetic effects. == Fatigue: Able to walk from bed to bathroom with difficulty due to weakness/ fatigue. == Disposition: Discussed options at length with patient, , and sister (Renetta). They have agreed to hospice consult. Patient would be a candidate for a hospice care center due to her level of pain and nausea. She will probably require some ongoing parenteral meds given the problem with N/V. 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 == Advance directives: Not ready for DNR status. Will have hospice or palliative care mental health social worker help patient complete health care surrogate designation. == We discussed how we all want to hope and pray for the best at this time, but it is also time get emotional and financial and spiritual affairs in order. Patient and family seemed thankful for the madalyn discussion. . Time Spent Total Floor Time (mins): 90 Face to Face Time (mins): 60 (Total floor time included chart review, patient exam, telephone conversation with Dr. Mckeon, and the above referenced bedside discussion with patient and family. I also spoke by phone to hospice admission team when patient/family expressed interest in a hospice consult. ) >50% Counseling/Coord of Care: Yes Thank you for the opportunity to participate in the care of Ms. Luciano. . Attestation To help prompt me to consider important information that might be impacting today's encounter and assessment, information from prior notes written by myself or my colleagues may have been "brought forward" into today's note. My signature on this note, however, is an attestation that I personally performed the exam, history, and/or decision-making noted today, and, unless otherwise indicated, the interactions with patient, family, and staff as well as the review of records all occurred today. I also attest that the listed assessment and stated plan reflect my best clinical judgment today based on the combination of historical information, prior notes, and today's exam/ interactions. When time spent is documented, it refers only to time spent today by the signer, or if indicated, combined time spent today by collaborating physician/nurse practitioner. . Serafin Valdovinos MD July 06, 2016 14:21
[2016-07-06 16:00] VITALS: BP 104/68; PULSE 106; RESP 20; TEMP 96.9; O2SAT 98
--- NOTE | 2016-07-06 17:05 | PD.ONC.PN ---
Subjective Subjective Remarks Has N/V since yesterday. +left lower abdominal pain and back pain. Getting weaker. Objective Data Date Time Temp Pulse Resp B/P Pulse Ox O2 Delivery O2 Flow Rate FiO2 07/06/16 16:00 96.9 106 20 104/68 98 07/06/16 12:00 95.9 113 20 102/68 98 07/06/16 08:00 96.2 108 18 103/65 97 07/06/16 00:00 97.8 109 16 118/76 96 07/05/16 20:00 97.8 112 16 102/57 97 07/06/16 07/06/16 07/06/16 07:00 15:00 23:00 Intake Total 180 ml 1446 ml Balance 180 ml 1446 ml Result Diagram: 07/06/16 0500 07/06/16 0500 Laboratory Results Laboratory Tests Test 07/06/16 05:00 White Blood Count 17.2 TH/MM3 Red Blood Count 3.79 MIL/MM3 Hemoglobin 10.7 GM/DL Hematocrit 32.8 % Mean Corpuscular Volume 86.5 FL Mean Corpuscular Hemoglobin 28.4 PG Mean Corpuscular Hemoglobin 32.8 % Concent Red Cell Distribution Width 23.4 % Platelet Count 163 TH/MM3 Mean Platelet Volume 7.5 FL Neutrophils (%) (Auto) 91.3 % Lymphocytes (%) (Auto) 3.9 % Monocytes (%) (Auto) 4.5 % Eosinophils (%) (Auto) 0.1 % Basophils (%) (Auto) 0.2 % Neutrophils # (Auto) 15.7 TH/MM3 Lymphocytes # (Auto) 0.7 TH/MM3 Monocytes # (Auto) 0.8 TH/MM3 Eosinophils # (Auto) 0.0 TH/MM3 Basophils # (Auto) 0.0 TH/MM3 CBC Comment AUTO DIFF Differential Total Cells 100 Counted Neutrophils % (Manual) 91 % Band Neutrophils % 1 % Lymphocytes % 5 % Monocytes % 3 % Neutrophils # (Manual) 15.8 TH/MM3 Differential Comment FINAL DIFF MANUAL Platelet Estimate NORMAL Platelet Morphology Comment NORMAL Keratocytes OCC Prothrombin Time 11.2 SEC Prothromb Time International 1.0 RATIO Ratio Activated Partial 25.7 SEC Thromboplast Time Fibrinogen 531 mg/dL Sodium Level 136 MEQ/L Potassium Level 3.6 MEQ/L Chloride Level 102 MEQ/L Carbon Dioxide Level 25.4 MEQ/L Anion Gap 9 MEQ/L Blood Urea Nitrogen 6 MG/DL Creatinine 0.19 MG/DL Estimat Glomerular Filtration 390 ML/MIN Rate Random Glucose 91 MG/DL Calcium Level 12.3 MG/DL Protein Corrected Calcium MG/DL Total Bilirubin 0.7 MG/DL Direct Bilirubin 0.2 MG/DL Indirect Bilirubin 0.5 MG/DL Aspartate Amino Transf 32 U/L (AST/SGOT) Alanine Aminotransferase 13 U/L (ALT/SGPT) Alkaline Phosphatase 123 U/L Total Protein 6.0 GM/DL Albumin 2.3 GM/DL Administered Medications Medications (Trade) Dose Ordered Sig/Nico Route PRN Reason Start Time Stop Time Status Last Admin Dose Admin Sodium Chloride (NS Flush) 2 ml BID IV FLUSH 06/24/16 21:00 07/05/16 20:50 Ondansetron HCl (Zofran Inj) 4 mg Q6H PRN IVP NAUSEA OR VOMITING 06/24/16 21:00 07/06/16 13:29 Dexamethasone Sodium Phosphate (Decadron Inj) 4 mg DAILY IV PUSH 06/25/16 09:00 07/06/16 08:25 Pantoprazole Sodium 40 mg 40 mg DAILY IV PUSH 06/26/16 09:00 07/06/16 08:24 Potassium Chloride/Dextrose/ Sod Cl (D5-NS + KCl 20 Meq Inj) 1,000 ml @ 50 mls/hr Q20H IV 06/28/16 15:00 07/06/16 13:28 Polyethylene Glycol (Miralax) 17 gm DAILY PO 07/04/16 17:15 07/05/16 07:43 Morphine Sulfate 4 mg 4 mg Q3H PRN IV PUSH PAIN SCALE 7 TO 10 07/06/16 09:15 07/06/16 11:39 Pamidronate Disodium/Sodium Chloride (Aredia Inj/NS 500 ml Inj) 500 ml @ 125 mls/hr ONCE ONCE IV 07/06/16 13:00 07/06/16 16:59 07/06/16 13:27 Objective Remarks GENERAL: Cachectic, very weak. SKIN: Warm and dry. HEAD: Normocephalic. EYES: No scleral icterus. No injection or drainage. NECK: Supple, trachea midline. No JVD or lymphadenopathy. LYMPHATIC: No adenopathy. CARDIOVASCULAR: Regular rate and rhythm without murmurs. RESPIRATORY: Breath sounds equal bilaterally. No accessory muscle use. GASTROINTESTINAL: Abdomen soft, colostomy noted, tender left abdomen. +BS. EXTREMITIES: No cyanosis, or edema. MUSCULOSKELETAL: Adequate muscle tone. NEUROLOGICAL: No obvious focal deficit. Awake, alert, and oriented x3. PSYCHIATRIC: Appropriate mood and affect; insight and judgment normal. Assessment/Plan Problem List: (1) Metastatic breast cancer Status: Acute Plan: --CT abdomen/pelvis showed progression of disease. Prognosis is very poor. -- Receiving palliative XRt to T spine. -- Original diagnosis she was found to be triple positive. -- Bone scan on 06/29 showed wilfred, however CT chest showed a metastatic lesion in her lung, liver and in the area of T6. (2) Bowel obstruction Status: Acute Plan: s/p diverting colostomy. Start N?V again 07/05. CT abdomen/pelvis showed obstruction of proximal jejunum. No further surgical intervention per CRS. (3) Hypercalcemia Status: Acute Plan: Due to bone mets. Ca is trending up. (4) Generalized weakness Status: Acute Plan: Due to mets disease and hypercalcemia. (5) Hydronephrosis Status: Acute Plan: Right hydronephrosis due to obstruction by pelvic mass. Assessment 56 y/o female with history of metastatic breast cancer admitted with constipation. She has significant progression of mets disease. Plan 1. Reviewed CT ab/pelvis result with pt and her sister. Extensive discussion with them. I told her the prognosis is very poor and her disease is now progressing quite rapidly. She has developed bowel obstruction and right hydronephrosis. We talked about the need for NGT placement and possible nephrostomy tube placement. We also discussed further palliative chemotherapy but she is very weak and likely not able to tolerate more chemotherapy. She stated that she is very tired of fighting anymore. She does not want anymore tubes placed. SHe want sto be kept comfortable. We discussed palliative care meds eval and hospice. We also talked about DNr but she would like to think about it first. 2. Pamidronate 3. continue XRT Saul Mckeon MD July 06, 2016 17:04
[2016-07-06 20:00] VITALS: BP 110/64; PULSE 102; RESP 16; TEMP 95.6; O2SAT 96
[2016-07-07] VITALS: BP 108/67; PULSE 110; RESP 16; TEMP 97.7; O2SAT 96
[2016-07-07] MEDS: MORPHINE SULFATE 4 MG/ML INJ IV PUSH PRN ×3 (05:56→14:58)
--- NOTE | 2016-07-07 07:26 | HHI.PR ---
Subjective Remarks C/R Surg POD afebrile, VSS UO adeq C/o N/V stoma functioning Objective - Vital Signs Date Time Temp Pulse Resp B/P Pulse Ox O2 Delivery O2 Flow Rate FiO2 07/07/16 00:00 97.7 110 16 108/67 96 Result Diagram: 07/06/16 0500 07/06/16 0500 Objective Remarks PE alert Abd - softer, stoma pink, stool in bag, min tympany A/P Assessment and Plan Imp: OOB RT today for palliation palliative care Philippe Ovalle MD July 07, 2016 07:26
[2016-07-07 08:00] VITALS: BP 87/60; PULSE 109; RESP 18; TEMP 96.9; O2SAT 96
[2016-07-07] MEDS: SODIUM CHLORIDE 0.9% FLUSH 10 ML FLUSH IV FLUSH SCH (08:11)
[2016-07-07] MEDS: POLYETHYLENE GLYCOL 17 GM PKG PO SCH (08:11)
[2016-07-07] MEDS: PANTOPRAZOLE SODIUM 40 MG VIAL IV PUSH SCH (08:11)
[2016-07-07] MEDS: DEXAMETHASONE SOD PHOS 4 MG/ML VIAL IV PUSH SCH (08:11)
[2016-07-07] MEDS: D5-NS + KCL 20 MEQ INJ 1,000 ML IV SCH (08:26)
--- NOTE | 2016-07-07 09:36 | PD.ONC.PN ---
Subjective Subjective Remarks +N/V yesterday, better this am. Able to ambulate to bathroom. Left sided abdominal pain. Objective Data Date Time Temp Pulse Resp B/P Pulse Ox O2 Delivery O2 Flow Rate FiO2 07/07/16 08:00 96.9 109 18 87/60 96 07/07/16 00:00 97.7 110 16 108/67 96 07/06/16 20:00 95.6 102 16 110/64 96 07/06/16 16:00 96.9 106 20 104/68 98 07/06/16 12:00 95.9 113 20 102/68 98 07/07/16 07/07/16 07/07/16 07:00 15:00 23:00 Intake Total 725 ml Output Total 50 ml Balance 675 ml Result Diagram: 07/06/16 0500 07/06/16 0500 Administered Medications Medications (Trade) Dose Ordered Sig/Nico Route PRN Reason Start Time Stop Time Status Last Admin Dose Admin Sodium Chloride (NS Flush) 2 ml BID IV FLUSH 06/24/16 21:00 07/05/16 20:50 Ondansetron HCl (Zofran Inj) 4 mg Q6H PRN IVP NAUSEA OR VOMITING 06/24/16 21:00 07/06/16 13:29 Dexamethasone Sodium Phosphate (Decadron Inj) 4 mg DAILY IV PUSH 06/25/16 09:00 07/07/16 08:11 Pantoprazole Sodium 40 mg 40 mg DAILY IV PUSH 06/26/16 09:00 07/07/16 08:11 Potassium Chloride/Dextrose/ Sod Cl (D5-NS + KCl 20 Meq Inj) 1,000 ml @ 50 mls/hr Q20H IV 06/28/16 15:00 07/06/16 13:28 Polyethylene Glycol (Miralax) 17 gm DAILY PO 07/04/16 17:15 07/07/16 08:11 Morphine Sulfate (Morphine Inj) 4 mg Q3H PRN IV PUSH PAIN SCALE 7 TO 10 07/06/16 09:15 07/07/16 05:56 Metoclopramide HCl (Reglan Inj) 10 mg Q6HR PRN IV PUSH NAUSEA 07/06/16 12:00 07/06/16 18:17 Objective Remarks GENERAL: Cachetic, weak. SKIN: Warm and dry. HEAD: Normocephalic. EYES: No scleral icterus. No injection or drainage. NECK: Supple, trachea midline. No JVD or lymphadenopathy. LYMPHATIC: No adenopathy. CARDIOVASCULAR: Regular rate and rhythm without murmurs. RESPIRATORY: Breath sounds equal bilaterally. No accessory muscle use. GASTROINTESTINAL: Abdomen soft, tender left abdomen, colostomy + stool. +BS EXTREMITIES: No cyanosis, or edema. MUSCULOSKELETAL: Adequate muscle tone. NEUROLOGICAL: No obvious focal deficit. Awake, alert, and oriented x3. PSYCHIATRIC: Appropriate mood and affect; insight and judgment normal. Assessment/Plan Problem List: (1) Metastatic breast cancer Status: Acute Plan: --Prognosis is poor. Pt is very weak and does not want further chemotx at this time until she is stronger. She has elected to go on hospice. --CT abdomen/pelvis showed progression of disease. Prognosis is very poor. -- Receiving palliative XRt to T spine. -- Original diagnosis she was found to be triple positive. -- Bone scan on 06/29 showed wilfred, however CT chest showed a metastatic lesion in her lung, liver and in the area of T6. (2) Bowel obstruction Status: Acute Plan: s/p diverting colostomy. Start N?V again 07/05. CT abdomen/pelvis showed obstruction of proximal jejunum. No further surgical intervention per CRS. (3) Hypercalcemia Status: Acute Plan: s/p pamidronate 07/06. Due to bone mets. Ca is trending up. (4) Generalized weakness Status: Acute Plan: Due to mets disease and hypercalcemia. (5) Hydronephrosis Status: Acute Plan: Right hydronephrosis due to obstruction by pelvic mass. Assessment 56 y/o female with history of metastatic breast cancer admitted with constipation. She has significant progression of mets disease. Plan 1. Pt has decided to go on hospice. She does not want further chemotx but she is hoping that she will be strong enoough in the near fututre so she can start chemo again. Await transfer to care center. 2. Discussed with pt and her sister. Saul Mckeon MD July 07, 2016 09:36
[2016-07-07 10:08] LABS: AUTOMATED NEUTROPHIL # 12.1 TH/MM3 (1.8-7.7); BASOPHIL % 0.1 % (0.0-2.0); EOSINOPHIL % 0.1 % (0.0-4.0); HEMATOCRIT 32.1 % (35.0-46.0); HEMO FLAGS DIFF FINAL; LYMPH % 2.4 % (9.0-44.0); LYMPHOCYTE # 0.3 TH/MM3 (1.0-4.8); MEAN CELL VOLUME 87.9 FL (80.0-100.0); MEAN CORPUSCULAR HEMOGLOBIN 28.5 PG (27.0-34.0); MEAN CORPUSCULAR HGB CONC 32.5 % (32.0-36.0); MONO % 4.7 % (0.0-8.0); NEUT % 92.7 % (16.0-70.0); PLATELET COUNT 138 TH/MM3 (150-450); RED BLOOD COUNT 3.65 MIL/MM3 (4.00-5.30); RED CELL DISTRIBUTION WIDTH 23.2 % (11.6-17.2)
[2016-07-07 10:40] LABS: BICARBONATE 26.3 MEQ/L (21.0-32.0); POTASSIUM 3.2 MEQ/L (3.5-5.1)
[2016-07-07 12:00] VITALS: BP 94/60; PULSE 112; RESP 20; TEMP 96.1; O2SAT 95
--- NOTE | 2016-07-07 14:54 | HHI.DS ---
Discharge Summary Admission Date June 24, 2016 at 20:49 Discharge Date: July 07, 2016 Admitting Diagnosis colonic obstruction, urethral obstruction, metastatic disease (1) Metastatic breast cancer ICD Code: C50.919 (2) Urethral obstruction ICD Code: N36.8 (3) Bowel obstruction ICD Code: K56.60 (4) Hypercalcemia ICD Code: E83.52 (5) Hypotension ICD Code: I95.9 (6) Bandemia ICD Code: D72.825 Procedures 06/25/16 exploratory laparotomy with diverting loop transverse colostomy Brief History - From Admission This a 56-year-old female with a PMH of Metastatic Breast CA to Brain, Liver and Colon who presented to the ER with complaints of abdominal pain and constipation x10 days. Denies nausea, vomiting or diarrhea. States she's tried over the counter medications w/ no relief. Following w/ Dr. Mckeon as outpatient, s/p Brain Radiation w/ plans to undergo Chemo yesterday however chemo on hold for episode of hypotension. Today, w/ increasing abdominal pain and referred to ER for evaluation of possible obstruction. On arrival, BP 87/50 , HR 120, O2 sat 96% on RA, Afebrile. S/p IVF, currently BP 103/52, HR 80. WBC 3.1, bandemia 32. Ca 13.0. U/a negative. CT Abd/Pelvis w/ widespread metastatic disease, likely distal bowel obstruction and right ureteral obstruction. Dr. Ovalle w/ CRS and Dr. Hawkins w/ Urology, will evaluate in am. S/p NGT in ER. CBC/BMP: 07/07/16 0942 07/07/16 0942 Significant Findings Laboratory Tests Test 07/05/16 07/06/16 07/07/16 14:02 05:00 09:42 White Blood Count 19.8 TH/MM3 17.2 TH/MM3 13.0 TH/MM3 (4.0-11.0) (4.0-11.0) (4.0-11.0) Red Blood Count 3.69 MIL/MM3 3.79 MIL/MM3 3.65 MIL/MM3 (4.00-5.30) (4.00-5.30) (4.00-5.30) Hemoglobin 10.4 GM/DL 10.7 GM/DL 10.4 GM/DL (11.6-15.3) (11.6-15.3) (11.6-15.3) Hematocrit 32.1 % 32.8 % 32.1 % (35.0-46.0) (35.0-46.0) (35.0-46.0) Red Cell Distribution Width 23.4 % 23.4 % 23.2 % (11.6-17.2) (11.6-17.2) (11.6-17.2) Platelet Count 126 TH/MM3 138 TH/MM3 (150-450) (150-450) Neutrophils (%) (Auto) 95.6 % 91.3 % 92.7 % (16.0-70.0) (16.0-70.0) (16.0-70.0) Lymphocytes (%) (Auto) 2.3 % 3.9 % 2.4 % (9.0-44.0) (9.0-44.0) (9.0-44.0) Neutrophils # (Auto) 18.9 TH/MM3 15.7 TH/MM3 12.1 TH/MM3 (1.8-7.7) (1.8-7.7) (1.8-7.7) Lymphocytes # (Auto) 0.4 TH/MM3 0.7 TH/MM3 0.3 TH/MM3 (1.0-4.8) (1.0-4.8) (1.0-4.8) Neutrophils % (Manual) 77 % (16-70) 91 % (16-70) Band Neutrophils % 19 % (0-6) Lymphocytes % 1 % (9-44) 5 % (9-44) Neutrophils # (Manual) 19.0 TH/MM3 15.8 TH/MM3 (1.8-7.7) (1.8-7.7) Toxic Granulation 1+ (NORMAL) Toxic Vacuolation PRESENT (NONE SEEN) Platelet Estimate LOW (NORMAL) Ovalocytes 1+ (NORMAL) Keratocytes OCC (NORMAL) Fibrinogen 531 mg/dL (227-377) Blood Urea Nitrogen 6 MG/DL (7-18) Creatinine 0.19 MG/DL 0.20 MG/DL (0.50-1.00) (0.50-1.00) Calcium Level 12.3 MG/DL 12.2 MG/DL (8.5-10.1) (8.5-10.1) Alkaline Phosphatase 123 U/L (45-117) Total Protein 6.0 GM/DL 5.8 GM/DL (6.4-8.2) (6.4-8.2) Albumin 2.3 GM/DL (3.4-5.0) Potassium Level 3.2 MEQ/L (3.5-5.1) Imaging Last Impressions Abdomen/Pelvis CT 07/05/16 0000 Signed Impressions: Service Date/Time: Tuesday, July 05, 2016 10:53 - CONCLUSION: 1. There is persistent urinary obstruction on the right with severe right hydronephrosis and hydroureter caused by distal ureteral obstruction secondary to a 2.5 cm right pelvic soft tissue mass, likely a metastatic deposit. 2. Colon is now decompressed following loop colostomy. However, there are peritoneal and retroperitoneal metastatic lesions in the left upper quadrant causing tethering and partial obstruction of the proximal jejunum. The adjacent descending colon is also abnormal similar to the prior study. 3. There is a small volume of free fluid in the abdomen and pelvis. In the pelvis there is mild peritoneal thickening and enhancement. 4. Stable metastatic disease within the liver and right adrenal gland. Alberto Wilson MD Thoracic Spine MRI 06/30/16 0000 Signed Impressions: Service Date/Time: June 13:29 - CONCLUSION: 1. Osseous metastatic disease to T6 vertebral body extending into the pedicle and posterior elements on the left. There is minimal epidural soft tissue component but no significant stenosis Pasquale Mcallister MD Chest CT 06/29/16 0000 Signed Impressions: Service Date/Time: Wednesday, June 29, 2016 12:54 - CONCLUSION: 1. Findings of pulmonary hepatic and osseous metastatic disease. 2. The mass in the thoracic spine is concerning for spinal stenosis and contrast enhanced MRI is recommended Pasquale Mcallister MD Bone Scan Nuclear Medicine 06/29/16 0000 Signed Impressions: Service Date/Time: Wednesday, June 29, 2016 12:54 - CONCLUSION: 1. No definite findings to indicate metastatic disease to bone are identified. 2. The area of increased uptake in the right chest is the residual tracer within the patient' s port. Joaquin Guzman MD Abdomen X-Ray 06/24/16 0000 Signed Impressions: Service Date/Time: Friday, June 24, 2016 23:44 - CONCLUSION: 1. NG tube appears to be in the mid to distal esophagus. Recommend advancing the NG tube approximately 10 cm. 2. Hydronephrosis of the right collecting system with what appears to be obstruction at the mid right ureter. 3. Nonspecific air-filled loops of small and large bowel throughout the abdomen. Kalia Rasmussen MD PE at Discharge General: Cachectic female in no acute distress. Heart: Regular rate and rhythm. No murmur. Lungs: Clear to auscultation bilaterally. No wheezes, rales, or rhonchi. Breathing is nonlabored. Abdomen: Soft, diffuse tenderness, nondistended. Ostomy noted. Extremities: No lower extremity edema. SCDs. Psych: Alert and oriented. Hospital Course Patient was admitted for management of bowel obstruction felt to be secondary to metastatic breast cancer. Colorectal surgery was consulted. Urology was consulted for ureteral obstruction. NG tube was placed in the ER. Oncology was consulted. Patient had exploratory laparotomy with diverting loop transverse colostomy. Radiation oncology was consulted for palliative radiation therapy. This was initiated and the patient did have some relief of her pain. She developed worsening abdominal pain and repeat CTA showed spread of metastases. Patient was not felt to be a good candidate for further chemotherapy at this time. Palliative care was consulted. Patient requested comfort care measures. Hospice was consulted. Arrangements were made for the patient to be discharged to the hospice care center in [place]. Pt Condition on Discharge: Fair Discharge Disposition: Hospice/Med Facility Discharge Time: > 30 minutes Discharge Instructions DIET: Follow Instructions for: As Tolerated, No Restrictions Activities you can perform: Regular-No Restrictions Other Activity Instructions: With assistive device Follow up Referrals: Colorectal Surgery - 1 Week with Philippe Ovalle MD Oncology with Saul Mckeon MD PCP Follow-up - 2 Weeks New Medications: Pantoprazole (Pantoprazole) 40 Mg Tab 40 MG PO DAILY Reflux #30 Ref 0 TAB Walker with Front Wheels (Walker with Front Wheels) 1 Mis Mis 1 EA .ROUTE DIRECTED #1 Ref 0 EA Oxycodone-Acetaminophen (Oxycodone-Acetaminophen) 10-325 mg Tab 1 TAB PO Q4H PRN PAIN SCALE 5 TO 10 #30 Ref 0 TAB Continued Medications: Cholecalciferol (Vitamin D) 1,000 Unit Tab 1000 UNITS PO DAILY Nutritional Supplement #1 Ref 0 BOTTLE Dexamethasone (Dexamethasone) 4 Mg Tab 4 MG PO DAILY #30 Ref 0 TAB Discontinued Medications: Aspirin (Aspirin) 81 Mg Chew 81 MG CHEW DAILY Ref 0 TAB Eddie Posada MD July 07, 2016 14:54
--- NOTE | 2016-07-07 14:56 | HHI.PR ---
Subjective Remarks Follow-up abdominal pain, metastatic breast cancer. Patient still having abdominal pain this morning. She has chosen hospice care. Arrangements are being made for patient to be discharged to the [facility] following today's radiation therapy. Objective Vitals Vital Signs Date Time Temp Pulse Resp B/P Pulse Ox O2 Delivery O2 Flow Rate FiO2 07/07/16 12:00 96.1 112 20 94/60 95 07/07/16 08:00 96.9 109 18 87/60 96 07/07/16 00:00 97.7 110 16 108/67 96 07/06/16 20:00 95.6 102 16 110/64 96 07/06/16 16:00 96.9 106 20 104/68 98 I/O 07/06/16 07/06/16 07/06/16 07/07/16 07/07/16 07/07/16 07:00 15:00 23:00 07:00 15:00 23:00 Intake Total 180 ml 1446 ml 721 ml 725 ml Output Total 50 ml 50 ml Balance 180 ml 1446 ml 671 ml 675 ml Intake Oral 180 ml 600 ml 240 ml 280 ml IV Total 846 ml 481 ml 445 ml Stool Total 50 ml 50 ml # Voids 2 4 1 1 # Bowel Movements 100 Result Diagram: 07/07/16 0942 07/07/16 0942 Imaging Last Impressions Abdomen/Pelvis CT 07/05/16 0000 Signed Impressions: Service Date/Time: Tuesday, July 05, 2016 10:53 - CONCLUSION: 1. There is persistent urinary obstruction on the right with severe right hydronephrosis and hydroureter caused by distal ureteral obstruction secondary to a 2.5 cm right pelvic soft tissue mass, likely a metastatic deposit. 2. Colon is now decompressed following loop colostomy. However, there are peritoneal and retroperitoneal metastatic lesions in the left upper quadrant causing tethering and partial obstruction of the proximal jejunum. The adjacent descending colon is also abnormal similar to the prior study. 3. There is a small volume of free fluid in the abdomen and pelvis. In the pelvis there is mild peritoneal thickening and enhancement. 4. Stable metastatic disease within the liver and right adrenal gland. Alberto Wilson MD Thoracic Spine MRI 06/30/16 0000 Signed Impressions: Service Date/Time: June 13:29 - CONCLUSION: 1. Osseous metastatic disease to T6 vertebral body extending into the pedicle and posterior elements on the left. There is minimal epidural soft tissue component but no significant stenosis Pasquale Mcallister MD Chest CT 06/29/16 0000 Signed Impressions: Service Date/Time: Wednesday, June 29, 2016 12:54 - CONCLUSION: 1. Findings of pulmonary hepatic and osseous metastatic disease. 2. The mass in the thoracic spine is concerning for spinal stenosis and contrast enhanced MRI is recommended Pasquale Mcallister MD Bone Scan Nuclear Medicine 06/29/16 0000 Signed Impressions: Service Date/Time: Wednesday, June 29, 2016 12:54 - CONCLUSION: 1. No definite findings to indicate metastatic disease to bone are identified. 2. The area of increased uptake in the right chest is the residual tracer within the patient' s port. Joaquin Guzman MD Abdomen X-Ray 06/24/16 0000 Signed Impressions: Service Date/Time: Friday, June 24, 2016 23:44 - CONCLUSION: 1. NG tube appears to be in the mid to distal esophagus. Recommend advancing the NG tube approximately 10 cm. 2. Hydronephrosis of the right collecting system with what appears to be obstruction at the mid right ureter. 3. Nonspecific air-filled loops of small and large bowel throughout the abdomen. Kalia Rasmussen MD Objective Remarks General: Cachectic female in no acute distress. Heart: Regular rate and rhythm. No murmur. Lungs: Clear to auscultation bilaterally. No wheezes, rales, or rhonchi. Breathing is nonlabored. Abdomen: Soft, diffuse tenderness, nondistended. Ostomy noted. Extremities: No lower extremity edema. SCDs. Psych: Alert and oriented. Procedures 06/25/16 exploratory laparotomy with diverting loop transverse colostomy Urinary Catheter: No Vascular Central Line Catheter: No A/P Problem List: (1) Metastatic breast cancer ICD Code: C50.919 Status: Acute (2) Urethral obstruction ICD Code: N36.8 Status: Acute (3) Bowel obstruction ICD Code: K56.60 Status: Acute (4) Hypercalcemia ICD Code: E83.52 Status: Acute (5) Hypotension ICD Code: I95.9 Status: Acute (6) Bandemia ICD Code: D72.825 Status: Acute Assessment and Plan 1. Metastatic breast cancer: There is evidence of metastases to the [employer], liver, colon. Status post radiation therapy. Appreciate oncology recommendations. Continue Decadron. CT of the chest shows metastatic disease. Bone scan report noted. MRI of the thoracic spine shows metastatic disease to T6 vertebral body. Patient is now receiving palliative radiation therapy. 2. Bowel obstruction: Status post exploratory laparotomy with diverting colostomy on 06/25/16. Regular diet as tolerated. Abdominal pain worsening today. CT abdomen/pelvis shows metastatic disease. 3. Ureteral obstruction: Appreciate urology recommendations. 4. Hypercalcemia: Likely secondary to metastases. Patient given a dose of IV pamidronate by oncology. 5. Bandemia: Improving. Blood cultures are negative. Possible intra-abdominal infection treated with ciprofloxacin and metronidazole. 6. DVT prophylaxis: SCDs, STEPH warner. 7. Hypotension on admission: BP low, but stable. 8. Hypokalemia: Improved. Recheck labs. 9. Stage IV decubitus ulcer over coccyx: Continue wound care. 10. Poor prognosis: Appreciate palliative care recommendations. Hospice was consulted. Patient has opted to go with hospice care and will be discharged to the hospice care center today. Discussed with Dr. Ovalle. Discharge Planning Discharge to hospice care center when arrangements are made. Eddie Posada MD July 07, 2016 14:56
== END 2016-07-07 15:30 | disposition hospice, inpatient (51) | DRG 330 ==
LOC: NEPE 15:30 → NEDA 20:49 → N06B 22:16 → N06A 06-25 16:13 → N07B 07-02 21:31
PROVIDERS: ADMIT Hospitalist; ATTEND Family Medicine
PROC: 0D1L0Z4 Bypass Transverse Colon to Cutaneous, Open Approach (ICD-10-PCS; principal; 2016-06-25 11:59)
PROC: DW0 Radiation Therapy, Anatomical Regions, Beam Radiation (ICD-10-PCS; 2016-07-03)
DX: C78.5 Secondary malignant neoplasm of large intestine and rectum (principal); K56.60 Unspecified intestinal obstruction; L89.154 Pressure ulcer of sacral region, stage 4; C78.00 Secondary malignant neoplasm of unspecified lung; C77.9 Secondary and unspecified malignant neoplasm of lymph node, unspecified; C78.4 Secondary malignant neoplasm of small intestine; C78.7 Secondary malignant neoplasm of liver and intrahepatic bile duct; N13.1 Hydronephrosis with ureteral stricture, not elsewhere classified; C79.31 Secondary malignant neoplasm of brain; C79.51 Secondary malignant neoplasm of bone; N13.30 Unspecified hydronephrosis; C74.92 Malignant neoplasm of unspecified part of left adrenal gland; E88.09 Other disorders of plasma-protein metabolism, not elsewhere classified; E83.52 Hypercalcemia; I95.9 Hypotension, unspecified; D72.825 Bandemia; N36.8 Other specified disorders of urethra; E86.0 Dehydration; D64.9 Anemia, unspecified; F41.9 Anxiety disorder, unspecified; E87.6 Hypokalemia; Z51.5 Encounter for palliative care; Z90.13 Acquired absence of bilateral breasts and nipples; Z92.21 Personal history of antineoplastic chemotherapy; Z92.3 Personal history of irradiation; Z85.3 Personal history of malignant neoplasm of breast
CPT/HCPCS: 71250; 72157; 74000; 74177; 77263; 77280; 77290; 77295; 77300; 77334; 77336; 77387; 77412; 77427; 78306; 80048; 80053; 80076; 81001; 83605; 83690; 83735; 84132; 84155; 85007; 85025; 85027; 85384; 85610; 85730; 86850; 86900; 86901; 87040; 94150; 96361; 96374; 96375; 96523; 99233; A9503; A9579; C9113; J0630; J0744; J1100; J1170; J1642; J2270; J2370; J2405; J2430; J2710; J2765; J3010; J3480; J7030; J7040; J7042; J7120; Q9963; Q9967